=== PATIENT | female | born 1965 | race Caucasian/White ===

== ENCOUNTER 2019-12-22 12:07 | Outpatient (REF) | payer MEDICAID, SELFPAY ==
[2019-12-22 13:21] LABS: Abs Immature Grans 0.01 k/cumm (0.0-0.09); Absolute Basophil Count 0.03 k/cumm (0.0-0.2); Absolute Eosinophil Count 0.11 k/cumm (0.0-0.7); Absolute Lymphocyte Count 2.57 k/cumm (1.2-3.4); Absolute Monocyte Count 0.46 k/cumm (0.11-0.7); Absolute Neutrophil Count 4.69 k/cumm (1.2-6.7); Basophils % 0.4; Eosinophils % 1.4; HCT 39.7 % (36.0-46.0); HGB 13.4 g/dL (12.0-15.5); Immature Grans % 0.1 %; Lymphocytes % 32.7; Mean Corp. HGB Concentration 33.8 g/dL (32.0-36.0); Mean Corpuscular Hemoglobin 31.5 pg (27.0-33.0); Mean Corpuscular Volume 93.4 fL (80-95); Mean Platelet Volume 10.9 fL (8.0-11.0); Monocytes % 5.8; Neutrophils % 59.6; Platelet Count 272 x1000/uL (130-400); RBC 4.25 m/cumm (4.00-5.20); RBC Distribution Width 12.1 % (11.7-14.6); White Blood Cell Count 7.87 k/cumm (4.4-10.8)
[2019-12-22 13:31] LABS: Anion Gap 9.6 mmol/L (3-11); BUN 20 mg/dL (7-18); CO2 27.4 mmol/L (21.0-32.0); CREATININE 0.78 mg/dL (0.55-1.02); Calcium 8.9 mg/dL (8.5-10.1); Chloride 104 mmol/L (98-107); Glucose 90 mg/dL (74-106); Potassium 4.3 mmol/L (3.5-5.1); Sodium 141 mmol/L (136-145)
[2019-12-22 13:45] LABS: Calculated LDL 167 mg/dL (<100); Cholesterol 240 mg/dL (<200); HDL Cholesterol 49 mg/dL (40-60); Triglyceride 123 mg/dL (<150)
== END 2019-12-22 12:27 ==
LOC: NCHCN 12:07
PROVIDERS: PCP Nurse Practitioner Family; Visit Provider Nurse Practitioner Family
DX: Z13.0 Encounter for screening for diseases of the blood and blood-forming organs and certain disorders involving the immune mechanism (principal); Z13.228 Encounter for screening for other metabolic disorders; Z13.220 Encounter for screening for lipoid disorders
CPT/HCPCS: 80048; 80061; 85025

== ENCOUNTER 2019-12-29 11:42 | Outpatient (REF) | payer MEDICAID, SELFPAY ==
--- NOTE | 2019-12-29 11:00 | PAPFT_PTH ---
PATIENT: Geetha Figueroa LOC: [facility] U#:[id number] AGE/SX: 54/F ROOM: RE12/29/[address]: JIM Cardoso : 1965 BED: DIS: 12/29/2019 SPEC #: [id number] RECD: 12/29/19 12:57 STATUS: PAUL REOtto #: [id number] LILIYA: 12/29/19 11:[address]: Pippa Minaya DEPT: [facility] Cytology RECD BY: Angela Amador ENTERED: 12/29/19 12:57 SP TYPE: PAPFT OTHR DR: Dulce Funk Tissues: 1 - CX/ENDOCX FOR PAP SMEARS Procedures: PAP THIN PREP/UVM Screening HPV DNA PROBE Comments: [id number]
== END 2019-12-29 12:02 ==
LOC: LBN 11:42
PROVIDERS: PCP Nurse Practitioner Family; Visit Provider Nurse Practitioner Family
DX: Z12.4 Encounter for screening for malignant neoplasm of cervix (principal); Z11.51 Encounter for screening for human papillomavirus (HPV)
CPT/HCPCS: 88142; 87624

== ENCOUNTER 2020-02-02 01:04 | Outpatient (CLI) | payer MEDICAID, SELFPAY ==
--- NOTE | 2020-02-02 11:00 | DI.MAMMO_ITS ---
EXAM: MG MAMMO SCREENING CLINICAL HISTORY: screening TECHNIQUE: Bilateral full field digital CC and MLO mammographic images were obtained with 3D tomosyn thesis and utilizing computer aided detection (CAD). COMPARISON: Available for comparison. FINDINGS: Masses/Architectural Distortion: None seen. Microcalcifications: No suspicious pleomorphic-type are seen. Skin Thickening/Nipple Retraction: None. IMPRESSION: 1. No significant interval change with no specific features of malignancy noted. 2. Unless there is more urgent need, screening mammography is recommended, as per [place] [employer] guidelines. BI-RADS Cat 1 - Negative Breast Density - Category B - Scattered areas of fibroglandular density A negative radiographic report should not delay biopsy if a dominant or clinically suspicious mass is present. Up to ten percent of cancers are not identified on mammography. A negative report may reinforce clinical impression. Adenosis and dense breasts may obscure an underlying neoplasm. False positive reports average 6 to 10%. Patient will receive a letter notifying them of these results.
== END 2020-02-02 01:24 ==
PROVIDERS: PCP Nurse Practitioner Family; Visit Provider Nurse Practitioner Family
DX: Z12.31 Encounter for screening mammogram for malignant neoplasm of breast (principal)
CPT/HCPCS: 77063; 77067

== ENCOUNTER 2021-07-01 16:20 | Outpatient (REF) | payer MEDICAID, SELFPAY ==
[2021-07-03 11:03] LABS: COVID-19 RT-PCR UVMMC Result Negative (Negative)
== END 2021-07-01 16:21 | disposition home or self-care (01) ==
LOC: NCHCN 16:20
PROVIDERS: PCP Nurse Practitioner Family; Visit Provider Nurse Practitioner Family
DX: Z20.822 Contact with and (suspected) exposure to COVID-19 (principal)
CPT/HCPCS: U0003

== ENCOUNTER 2022-02-27 01:38 | Outpatient (CLI) | payer MEDICAID, SELFPAY ==
--- NOTE | 2022-02-27 13:30 | DI.MAMMO_ITS ---
Exam(s) MAMMO SCREENING EXAM: MAMMO SCREENING CLINICAL HISTORY: SCREENING, Z12.39; PREVENTATIVE HEALTH CARE, Z00.00. TECHNIQUE: Bilateral full field digital CC and MLO mammographic images were obtained with 3D tomosyn thesis and utilizing computer aided detection (CAD). COMPARISON: Prior mammograms were reviewed, the most recent being January 2020. FINDINGS: There has been no significant change in the appearance and distribution of the fibroglandular tissue There are no new significant radiograph findings in left breast. In the right breast there is a noncalcified well-defined 4 x 3 millimeter asymmetric density seen on the CC view 5 cm in from the nipple, lateral of center. Not previously present. Ultrasound recommen ded. There is no significant architectural distortion nor skin thickening-retraction. IMPRESSION: 1. No radiographic evidence of malignancy in left breast. 2. There is a 4 x 3 millimeter new asymmetric density in the right breast as described above. Spot c ompression view and ultrasound recommended. BI-RADS Category 0 - Assessment Incomplete: Need additional imaging evaluation Breast Density - Category B - Scattered areas of fibroglandular density Breast density Category C or D implies that the patient has dense breast tissue. Dense breast tissue can make it harder to find cancer on a mammogram. Dense breast tissue is also associated with an incr eased risk of breast cancer. This information about the result of the mammogram report was provided to the patient to raise their awareness. Use this report when you speak with the patient about their risks for breast cancer, which includes their family history. At that time, you may recommend additional screening tests (Ultrasoun d or MRI) as these tests may add significant information. A negative radiographic report should not delay biopsy if a dominant or clinically suspicious mass is present. Up to ten percent of cancers are not identified on mammography. A negative report may reinforce clinical impression. Adenosis and dense breasts may obscure an underlying neoplasm. False positive reports average 6 to 10%. Patient will receive a letter notifying them of these results.
== END 2022-02-27 01:58 ==
PROVIDERS: PCP Nurse Practitioner Family; Visit Provider Nurse Practitioner Family
DX: Z12.31 Encounter for screening mammogram for malignant neoplasm of breast (principal); R92.8 Other abnormal and inconclusive findings on diagnostic imaging of breast
CPT/HCPCS: 77063; 77067

== ENCOUNTER 2022-03-08 01:38 | Outpatient (CLI) | payer MEDICAID, SELFPAY ==
--- NOTE | 2022-03-08 | DI.MAMMO_ITS ---
Exam(s) MAMMO SCREEN CALL BACK UNI EXAM: MAMMO SCREEN CALL BACK UNI CLINICAL HISTORY: F/U PILI, RT ASYMMETRIC DENSITY TECHNIQUE: Cc and MLO spot compression views and tomographic imaging were performed. COMPARISON: 27 February 2022 and exams back to 2011 FINDINGS: Tiny circumscribed nodule inferolateral right breast much less prominent on spot views. No suspicio us masses or suspicious microcalcifications are seen. . IMPRESSION: BI-RADS Category 2 - Benign Findings Yearly screening mammography is recommended. Breast Density - Category B, scattered fibroglandular densities.
== END 2022-03-08 01:58 ==
PROVIDERS: PCP Nurse Practitioner Family; Visit Provider Nurse Practitioner Family
DX: Z12.31 Encounter for screening mammogram for malignant neoplasm of breast (principal); R92.8 Other abnormal and inconclusive findings on diagnostic imaging of breast; N60.81 Other benign mammary dysplasias of right breast
CPT/HCPCS: 77063; 77067

== ENCOUNTER 2022-04-13 20:22 | Outpatient (REF) | payer MEDICAID, SELFPAY ==
[2022-04-13 18:52] LABS: ALT 30 U/L (14-59); AST 22 U/L (15-37); Alkaline Phosphatase 97 U/L (46-116); Anion Gap 5.2 mmol/L (3-11); BUN 15 mg/dL (7-18); Bilirubin, Total 0.3 mg/dL (0.2-1.0); C-Reactive Protein 0.35 mg/dL (0.0-0.3); CO2 28.8 mmol/L (21.0-32.0); CREATININE 0.7 mg/dL (0.55-1.02); Calcium 8.8 mg/dL (8.5-10.1); Chloride 105 mmol/L (98-107); Glucose 78 mg/dL (74-106); Sodium 139 mmol/L (136-145); TSH (W/Ref FT4) 1.54 uIU/mL (0.36-3.74); Total Protein 7.1 g/dL (6.4-8.2)
== END 2022-04-13 20:23 | disposition home or self-care (01) ==
LOC: NCHCN 20:22
PROVIDERS: PCP Nurse Practitioner Family; Visit Provider Nurse Practitioner Family
DX: M25.59 Pain in other specified joint (principal); E66.9 Obesity, unspecified; Z68.35 Body mass index [BMI] 35.0-35.9, adult; R05.3 Chronic cough; Z13.29 Encounter for screening for other suspected endocrine disorder
CPT/HCPCS: 80053; 84443; 86140

== ENCOUNTER 2022-05-01 10:34 | Outpatient (REF) | payer MEDICAID, SELFPAY ==
[2022-05-01 17:22] LABS: Hemoglobin A1C 5.5 % (<5.7)
[2022-05-01 17:42] LABS: ALT 25 U/L (14-59); AST 15 U/L (15-37); Albumin 3.7 g/dL (3.4-5.0); Alkaline Phosphatase 119 U/L (46-116); Anion Gap 9.9 mmol/L (3-11); BUN 19 mg/dL (7-18); Bilirubin, Total 0.4 mg/dL (0.2-1.0); CO2 26.1 mmol/L (21.0-32.0); CREATININE 0.8 mg/dL (0.55-1.02); Calcium 8.5 mg/dL (8.5-10.1); Chloride 107 mmol/L (98-107); Glucose 91 mg/dL (74-106); Potassium 4.2 mmol/L (3.5-5.1); Sodium 143 mmol/L (136-145); TSH (W/Ref FT4) 1.51 uIU/mL (0.36-3.74); Total Protein 6.7 g/dL (6.4-8.2)
[2022-05-02 18:27] LABS: Rheumatoid Factor <8.6 IU/mL (<12.0)
== END 2022-05-01 10:35 | disposition home or self-care (01) ==
LOC: NCHCN 10:34
PROVIDERS: PCP Nurse Practitioner Family; Visit Provider Nurse Practitioner Family
DX: E66.9 Obesity, unspecified (principal); R05.3 Chronic cough
CPT/HCPCS: 80053; 83036; 84443; 86140; 86431

== ENCOUNTER 2022-07-06 01:56 | Outpatient (CLI) | payer MEDICAID, SELFPAY ==
[2022-07-06 12:44] LABS: Abs Immature Grans 0.02 10^3/uL (0.0-0.06); Absolute Basophil Count 0.04 10^3/uL (0.0-0.2); Absolute Eosinophil Count 0.11 10^3/uL (0.0-0.7); Absolute Monocyte Count 0.37 10^3/uL (0.1-0.8); Absolute Neutrophil Count 4.01 10^3/uL (1.2-6.7); Basophils % 0.6; ESR 19 mm/hr (0-30); Eosinophils % 1.8; HCT 40.2 % (36.0-46.0); HGB 13.5 g/dL (11.2-15.7); Immature Grans % 0.3; Lymphocytes % 27.2; MCH 30.5 pg (27.0-33.0); MCHC 33.6 % (32.0-36.0); MCV 91 fL (80-95); MPV 10.3 fL (8.0-11.0); Monocytes % 5.9; Neutrophils % 64.2; Platelet Count 267 10^3/uL (130-400); RBC 4.43 10^6/uL (3.93-5.22); RDW-SD 40.2 fL; WBC 6.25 10^3/uL (4.4-10.8)
[2022-07-06 13:08] LABS: ALT 25 U/L (14-59); AST 20 U/L (15-37); Albumin 3.9 g/dL (3.4-5.0); Alkaline Phosphatase 87 U/L (46-116); Anion Gap 6.3 mmol/L (3-11); BUN 18 mg/dL (7-18); Bilirubin, Total 0.4 mg/dL (0.2-1.0); C-Reactive Protein 0.64 mg/dL (0.0-0.3); CO2 28.7 mmol/L (21.0-32.0); CREATININE 0.9 mg/dL (0.55-1.02); Calcium 9.3 mg/dL (8.5-10.1); Chloride 106 mmol/L (98-107); Glucose 106 mg/dL (74-106); Potassium 4.9 mmol/L (3.5-5.1); Sodium 141 mmol/L (136-145); Total Protein 7.5 g/dL (6.4-8.2)
[2022-07-07 09:04] LABS: Cyclic Citrullinated Peptide <2.5 U/mL (<5.0)
== END 2022-07-06 01:57 | disposition home or self-care (01) ==
LOC: LOS 01:56
PROVIDERS: PCP Nurse Practitioner Family
DX: M17.0 Bilateral primary osteoarthritis of knee (principal); R79.82 Elevated C-reactive protein (CRP); G56.03 Carpal tunnel syndrome, bilateral upper limbs; M77.01 Medial epicondylitis, right elbow; M77.02 Medial epicondylitis, left elbow; M54.32 Sciatica, left side; M20.11 Hallux valgus (acquired), right foot; M20.12 Hallux valgus (acquired), left foot
CPT/HCPCS: 36415; 80053; 85652; 86200; 85025; 86140

== ENCOUNTER 2023-03-29 08:59 | Day surgery (SDC) | payer MEDICAID, SELFPAY ==
--- NOTE | 2023-03-28 21:39 | W.PM.DSUDISC ---
Date of service: 03/29/23 Time of Service: 11:17 Discharge Plan Disposition Patient Disposition: Home Condition: Good Discharge Details Reason For Visit: Screening colonoscopy Attending Provider: Armen Thornton Primary Care Provider: Dulce Funk Home Meds and New Rx's Prescriptions: Continued diphenhydramine HCl [ZzzQuil] 25 mg Capsule 25 mg PO HS Discontinued polyethylene glycol 3350 17 gram/dose powder 238 g PO ONCE Qty: 238 0RF Rx Instructions: take per colonoscopy instructions bisacodyl [Dulcolax (bisacodyl)] 5 mg tablet,delayed release (DR/EC) 5 mg PO ONCE Qty: 4 0RF Rx Instructions: take per colonoscopy instructions Discharge Instructions Instructions: Diverticulosis (GEN), Diverticulosis Diet (GEN), Colorectal Polyps (GEN) Additional Instructions: Geetha, we were able to complete your colonoscopy today without any difficulty. In fact, the quality of your preparation was excellent. You had some very rare occasional diverticula. Have attached some information here regarding colonic diverticulosis and its general management. I also found 1 single polyp in your rectum. I removed this completely. I will be in touch when I have the results of the pathology report. 1. If tolerated, consume a soft, low fiber diet for 1-2 days. 2. Do not drive, drink alcohol, operate machinery, make critical decisions, or do activities that require coordination or balance for 24 hours. 3. Because air was put into your colon during the procedure, expelling air from your rectum (passing gas or farting) is normal. 4. You may not have a bowel movement for 1-3 days because of the colonoscopy prep. This is normal. 5. Go directly to the emergency room if you notice any of the following: Develop chills (warm to touch), or if you have a thermometer and your temperature is above 101 Difficulty breathing or difficultly swallowing Persistent vomiting Severe abdominal pain, other than gas cramps Severe chest pain Black, tarry stools Any bleeding ? exceeding one tablespoon 6. Call your physician if the site where your intravenous was started becomes red, swollen, painful, and warm to touch. 7. Your physician has reviewed your pre-procedure medications. Please continue to take those medications as previously ordered. You will be given specific information/education regarding any changes to your medications before leaving. Stand Alone Forms: Anesthesia Discharge Inst., Roxy Melo (DSU) Activity:: Activity as Tolerated Diet:: As Tolerated Discharge Orders Discharge Orders: Discharge Order (Routine); Ordered 03/28/23 Ordered By: Armen Thornton DS: Diagnosis Discharge Diagnosis (1) Encounter for screening colonoscopy: Status: Acute Asessment and Plan: Follow-up on polypectomy results
--- NOTE | 2023-03-28 21:41 | COLE_ITS ---
Date of service: 03/29/23 Time of Service: 11:18 Colonoscopy Report Date of procedure: 03/29/23 Pre-op diagnosis general: Screening colonoscopy Post-op diagnosis procedure note: other (Diverticulosis, rectal polyp) Procedure: Colonoscopy with polypectomy Surgeon: Armen Thornton Anesthesia Type: General:No Airway Estimated blood loss (mL): 10 Pathology: other (Rectal polyp) Complications: None Disposition: same day Indications: Geetha is a 58-year-old woman here for screening colonoscopy Prep: Miralax/Dulcolax Procedure Start Time: 10:36 Procedure End Time: 10:55 Retraction Time: 12 Findings: Rare diverticulosis, rectal polyp Procedure Description: After the induction of monitored anesthetic care, and with the patient in left lateral decubitus position, I began by performing an external anorectal exam.? Perineum and skin were normal, as was the anal verge.? There was no evidence of external hemorrhoids.? Next, I performed a digital rectal exam.? I did not appreciate any abnormal findings.? Next, I advanced a colonoscope into the rectal vault.? I performed retroflexion.? This was normal.? Using insufflation, I then advanced the colonoscope beyond the rectal folds and into the sigmoid colon before advancing towards the cecum.? The quality of the prep was excellent.? There were some occasional widemouth colonic diverticula. The scope was noted to be in the cecum by identification of the ileocecal valve and candace endiceal orifice.? I then began withdrawing the colonoscope using repeated irrigation as necessary for full evaluation of the colonic mucosa. ?Once the scope was withdrawn to the level of the rectum, great care was taken to examine portions of the rectal folds. Within the rectum, I identified a 0.5 cm polyp. ?It appeared mostly sessile, but slightly pedunculated in character. ?I was able to remove this with a forcep polypectomy.. ?I examined the site, and there was minimal bleeding I stopped this with electrocautery. Once this was completed, I continued to withdraw the scope and examine the remainder of the colonic mucosa. Finally, the scope was withdrawn and the patient was brought to the same-day surgery recovery unit as the anesthetic wore off. ?The findings and instructions were shared with the patient prior to discharge.
[2023-03-29 09:15] VITALS: BP 132/94; PULSE 62; RESP 18; TEMP 36.6; O2SAT 98
[2023-03-29] MEDS: Lactated Ringers 1,000 ML 80 ML IV (09:47)
--- NOTE | 2023-03-29 10:29 | W.ANESPRE ---
General Info Date of Service Date Performed: 03/29/23 Height: 5 ft 3 in Weight: 93.4 kg Body Mass Index (BMI): 36.4 Surgical Procedure: Operation Date: 03/29/23 10:50 Proposed Procedure Side Surgeon p Colonoscopy Armen Thornton MD Meds Allergies and Home Medications Allergies Allergy/AdvReac Type Severity Reaction Status Date / Time No Known Drug Allergies Allergy Verified 03/27/23 15:17 Home Medication Medication Instructions Recorded diphenhydramine HCl 25 mg capsule 25 mg PO HS 03/27/23 (ZzzQuil) Current Visit Medications: Current Medications Generic Name Dose Route Start Last Admin Trade Name Freq PRN Reason Stop Dose Admin Hyoscyamine Sulfate 0.125 mg 03/28/23 21:42 Hyoscyamine 0.125 Mg Sl/Oral/Chew SL DIRECTED PRN Ringer's Solution 1,000 mls @ 80 mls/hr 03/29/23 06:00 03/29/23 09:47 IV 04/27/23 23:59 80 mls/hr INFUSION RANDY Administration IV Miscellaneous Supplies 1 each 03/29/23 06:00 Iv Access IV 04/27/23 23:59 DIRECTED RANDY Ondansetron HCl 4 mg 03/28/23 21:42 Ondansetron 4 Mg/2 Ml Vial IVP Q4H PRN PRN Nausea / Vomiting Sodium Chloride 0 ml 03/29/23 06:00 Normal Saline Flush 10 Ml Syr IV 04/27/23 23:59 PRN PRN Sodium Chloride 0 ml 03/29/23 06:00 Normal Saline 10 Ml Vial IJ 04/27/23 23:59 DIRECTED PRN Sterile Water 0 ml 03/29/23 06:00 Water,Injection,Sterile 10 Ml Vial IJ 04/27/23 23:59 DIRECTED PRN PFSH Active Problems Active Problems: Problem Status Onset Code Encounter for screening colonoscopy Z12.11 Medical History Medical History Shingles Tobacco Smoking/Tobacco Use Status: Never Alcohol Alcohol Intake: current Alcohol intake frequency: a few times a week Substance Use Substance use: Occasionally Substance use type: marijuana Vital Signs and Lab Results Vital Signs Most Recent Vital Signs in EMR: Most Recent Vital Signs Temp Pulse Resp BP Pulse Ox 36.6 C 62 18 132/94 H 98 03/29/23 09:15 03/29/23 09:15 03/29/23 09:15 03/29/23 09:15 03/29/23 09:15 Lab Results Blood Type / Crossmatch: No Data to Display Complete Blood Count: No Data to Display Complete Metabolic Panel: No Data to Display Liver Function Panel: No Data to Display Coagulation Panel: No Data to Display Cardiac Panel: No Data to Display Arterial Blood Gas: No Data to Display Venous Blood Gas: No Data to Display Pancreas Panel: No Data to Display Thyroid Panel: No Data to Display Infectious Disease: No Data to Display Blood Cultures: No Data to Display Toxicology Panel: No Data to Display Anesthesia Assessment and Plan Anesthesia History Personal History: No History of General Anesthesia Family History: No Family History of Anesthesia Complications Exercise Tolerance Exercise Tolerance: Metabolic Equivalents>4 Pertinent Negatives Pertinent Negatives: No Symptoms of GERD Cardiac & Pulmonary Exam Cardiac Exam: Normal S1/S2 Heart Sounds Pulmonary Exam: Clear Bilateral Breath Sounds Implantable Cardiac Device Does patient have a Pacemaker or an ICD?: No Airway Exam Known Difficult Airway: No Mallampati Class: 2 Mouth Opening: Normal (> 3cm) Thyromental Distance: Greater than 3 cm Neck Range of Motion: Full ROM Neck Circumference: Normal Teeth Condition: Normal Dentition ASA Classification ASA Score: ASA 2 Emergency Case?: No NPO Status NPO Status: NPO Clears >2 hours, Solids >8 hours Anesthesia Plan Resuscitation Status: Full Code Anesthesia Technique: General Anesthesia Airway Planned: Natural Airway Monitors Used: Standard Monitors
[2023-03-29 10:31] VITALS: BMI 36.4
--- NOTE | 2023-03-29 10:50 | BOWEL_PTH ---
PATIENT: Geetha Figueroa LOC: [facility] U#:[id number] AGE/SX: 58/F ROOM: RE03/29/[address]: Armen Thornton MD : 1965 BED: DIS: 03/29/2023 SPEC #: [id number] RECD: 03/29/23 13:02 STATUS: PAUL RE #: [id number] LILIYA: 03/29/23 10:[address]: Armen Thornton DEPT: Surgical Specimen RECD BY: Angela Amador ENTERED: 03/29/23 13:03 SP TYPE: Bowel OTHR DR: Dulce Funk Tissues: 1 - BIOPSY BOWEL Procedures: GROSS AND MICRO LEVEL 4 Comments: [id number]
[2023-03-29 11:02] VITALS: BP 111/80; PULSE 59; RESP 17; TEMP 36.5; O2SAT 97
--- NOTE | 2023-03-29 11:11 | W.ANESPOSTOP ---
Postoperative Evaluation Date, Time and Location Date Performed: 03/29/23 Time Performed: 11:11 Patient Location: Day Surgery Unit Vital Signs Most Recent Imported Vital Signs: Most Recent Vital Signs Temp Pulse Resp BP Pulse Ox 36.5 C 59 L 17 111/80 97 03/29/23 11:02 03/29/23 11:02 03/29/23 11:02 03/29/23 11:02 03/29/23 11:02 Pain Score Most Recent Pain Score: Most Recent Pain Score Pain Level 0 03/29/23 11:02 Assessment Mental Status: Awake (Alert & Oriented to Patient Baseline) Airway and Respiratory Function: Patent airway with normal (patient baseline) respiratory exam Cardiovascular Function: Hemodynamically Stable Hydration Status: Adequately Hydrated Nausea & Vomiting: No Nausea or Vomiting Pain: Pt. Denies Any Pain Peripheral Nerve Block: Patient did not receive a nerve block
[2023-03-29 11:30] VITALS: BP 142/86; PULSE 53; RESP 18; TEMP 36.6; O2SAT 100
== END 2023-03-29 11:45 | disposition home or self-care (01) ==
PROVIDERS: PCP Nurse Practitioner Family; Visit Provider Surgery
PROC: 0DJD8ZZ Inspection of Lower Intestinal Tract, Via Natural or Artificial Opening Endoscopic (ICD-10-PCS; CPT 45378; principal; 2023-03-29 10:45)
DX: Z12.11 Encounter for screening for malignant neoplasm of colon (principal); K62.1 Rectal polyp; K57.30 Diverticulosis of large intestine without perforation or abscess without bleeding
CPT/HCPCS: 45380; 88305

== ENCOUNTER → 2023-08-06 00:54 | Outpatient (CLI) | payer MEDICAID, SELFPAY ==
--- NOTE | 2023-08-06 | DI.MAMMO_ITS ---
Exam(s) MAMMO SCREENING EXAM: MAMMO SCREENING CLINICAL HISTORY: SCREENING, Z12.31. TECHNIQUE: Bilateral full field digital CC and MLO mammographic images were obtained with 3D tomosyn thesis and utilizing computer aided detection (CAD). COMPARISON: Prior mammograms were reviewed. FINDINGS: There has been no significant change in the appearance and distribution of the fibroglandular tissue. There are no CAD designations. There are no new spiculated masses nor malignant appearing microcalcification groups. Previously described possible nodule in the right breast is less evident on the present mammogram. There is no significant architectural distortion nor skin thickening-retraction. IMPRESSION: No radiographic evidence of malignancy. BI-RADS Category 1 - Negative Breast Density - Category B - Scattered areas of fibroglandular density Breast density Category C or D implies that the patient has dense breast tissue. Dense breast tissue can make it harder to find cancer on a mammogram. Dense breast tissue is also associated with an incr eased risk of breast cancer. This information about the result of the mammogram report was provided to the patient to raise their awareness. Use this report when you speak with the patient about their risks for breast cancer, which includes their family history. At that time, you may recommend additional screening tests (Ultrasoun d or MRI) as these tests may add significant information. A negative radiographic report should not delay biopsy if a dominant or clinically suspicious mass is present. Up to ten percent of cancers are not identified on mammography. A negative report may reinforce clinical impression. Adenosis and dense breasts may obscure an underlying neoplasm. False positive reports average 6 to 10%. Patient will receive a letter notifying them of these results.
== END ==
PROVIDERS: PCP Nurse Practitioner Family; Visit Provider Nurse Practitioner Family
DX: Z12.31 Encounter for screening mammogram for malignant neoplasm of breast (principal)
CPT/HCPCS: 77063; 77067

== ENCOUNTER 2024-03-14 12:53 | Outpatient (REF) | payer MEDICAID, SELFPAY ==
[2024-03-14 18:50] LABS: Abs Immature Grans 0.02 10^3/uL (0.0-0.06); Absolute Basophil Count 0.06 10^3/uL (0.0-0.2); Absolute Eosinophil Count 0.28 10^3/uL (0.0-0.7); Absolute Lymphocyte Count 1.88 10^3/uL (1.2-3.4); Absolute Monocyte Count 0.68 10^3/uL (0.1-0.8); Absolute Neutrophil Count 4.73 10^3/uL (1.2-6.7); Basophils % 0.8; Eosinophils % 3.7; HCT 41.6 % (36.0-46.0); HGB 14.2 g/dL (11.2-15.7); Immature Grans % 0.3; Lymphocytes % 24.6; MCH 31.2 pg (27.0-33.0); MCHC 34.1 % (32.0-36.0); MCV 91 fL (80-95); MPV 10.1 fL (8.0-11.0); Monocytes % 8.9; Neutrophils % 61.7; Platelet Count 284 10^3/uL (130-400); RBC 4.55 10^6/uL (3.93-5.22); RDW 12.2 % (11.7-14.6); RDW-SD 40.8 fL; WBC 7.65 10^3/uL (4.4-10.8)
[2024-03-14 19:11] LABS: Hemoglobin A1C 5.6 % (<5.7)
[2024-03-14 19:28] LABS: Vitamin D 25 Total 29.6 ng/mL (30-100)
[2024-03-14 20:14] LABS: Calculated LDL 191 mg/dL (<100); Cholesterol 301 mg/dL (<200); Folate 19.7 ng/mL (8.6-20.0); HDL Cholesterol 56 mg/dL (40-60); TSH 1.84 uIU/Ml (0.36-3.74); Triglyceride 270 mg/dL (<150); Vitamin B12 398 pg/mL (193-986)
[2024-03-14 20:29] LABS: FREE T4 0.87 ng/dL (0.76-1.46)
== END 2024-03-14 12:54 | disposition home or self-care (01) ==
LOC: NCHCN 12:53
PROVIDERS: PCP Nurse Practitioner Family; Visit Provider Nurse Practitioner Family
DX: Z13.220 Encounter for screening for lipoid disorders (principal); Z68.33 Body mass index [BMI] 33.0-33.9, adult; R53.83 Other fatigue
CPT/HCPCS: 80061; 82306; 82607; 82746; 83036; 84439; 84443; 85025

== ENCOUNTER 2024-12-26 19:38 | Outpatient (REF) | payer MEDICAID, SELFPAY ==
[2024-12-26 15:54] LABS: ALT 77 U/L (14-59); AST 37 U/L (15-37); Albumin 4.2 g/dL (3.4-5.0); Alkaline Phosphatase 105 U/L (46-116); Anion Gap 9.6 mmol/L (3-11); BUN 17 mg/dL (7-18); Bilirubin, Total 0.48 mg/dL (0.2-1.0); CO2 25.4 mmol/L (21.0-32.0); CREATININE 0.9 mg/dL (0.55-1.02); Calcium 9.4 mg/dL (8.5-10.1); Calculated LDL 72 mg/dL (<100); Chloride 108 mmol/L (98-107); Cholesterol 152 mg/dL (<200); Glucose 100 mg/dL (74-106); HDL Cholesterol 53 mg/dL (40-60); Potassium 4.4 mmol/L (3.5-5.1); Sodium 143 mmol/L (136-145); Total Protein 7.2 g/dL (6.4-8.2); Triglyceride 136 mg/dL (<150); Vitamin D 25 Total 26.3 ng/mL (30-100)
--- OUTSIDE RECORDS SUMMARY | 2024-12-26 19:40 | XMS_ITS | Encounter Summary ---
Author Organization [facility] Address [address] [place] [address] Care Team Providers Care Online Content Coordinator Name Role Phone Maye House THREE DIMENSIONAL MAP MODELER Primary Care Provider [phone] Encounter Details Date Type Department Care Team (Late st Contact Info) Description 08/25/2013 Results Only [facility] Services - [facility] ([facility] [address] [place] [address] Pippa Minaya, [facility] [address] [place] [phone] Social History Tobacco Use Types Packs/Day Years Used Date Smoking Tobacco: Never Assessed Comments Unknown Sex and Gender Information Value Date Recorded Sex Assigned at Not on file Legal Sex Female 18:20 EST Gender Identity Female 06/23/2022 14:22 EDT Sexual Orientation Not on file documented as of this encounter Plan of Treatment Not on file documented as of this encounter Procedures Procedure Name Priority Date/Time Associated Diagnosis Comments PAP TEST- RESULT ONLY Routine 08/25/2013 0:00 EDT documented in this encounter Results * PAP TEST- RESULT ONLY (08/25/2013 0:00 EDT) Pathology Report: CYTOPATHOLOGY REPORT Reports generated via electronic interface contain original data; however they are lacking the format of the original report. Caution should be taken when reading/interpreti ng unformatted reports. Name: ? GEETHA OQUENDO ? Accession #: ? [id number] ? : ? 1965 (Age: 48) ??F ?Collect Date: ? 08/25/2013 ? Location: ? [facility] ? Receive Date: ? 08/27/2013 ? Provider: PIPPA MINAYA SOLAR CREW MEMBER Copy to: ? Final Report SPECIMEN ADEQUACY ? Satisfactory for Evaluation - transformation zone component present GENERAL CATEGORIZATION ? Epithelial Cell Abnormality INTERPRETATION ? Squamous Cell Abnormality - Atypical squamous cells, undetermined significance (ASC-US). EDUCATIONAL NOTES/RECOMMENDATI ONS ? [facility] recommends following ASCCP's 2012 Updated Consensus Guidelines for the Management of Abnormal Cervical Cancer Screening Tests and Cancer Precursors (JLGTD, 2013; 17(5):S1-S27). ??Consensus guidelines are available online at www.asccp.org. Last Menstrual Period: 05/2013 Hormonal/Contracep tive status: Depo-Provera Specimen/Source: ??Pap Test, Cervix/Endocervix, ThinPrep Imaging System with manual evaluation Document reviewed and electronically signed by: ? MIRTA OWENS MD ? Report ??Date: 09/02/2013 13:45 HPV with Pap Test ? Date Ordered: ? 09/02/2013 ? Status: ?? Signed Out ?Date Complete: ? 09/04/2013 ? By: ??System Interface ? Date Reported: ? 09/04/2013 ? Interpretation RESULT: Negative for HPV. No E6 or E7 mRNA is detected from HPV types 16,18,31,33,35, 39,45,51,52,56,58, 59,66, and 68 by comber tender mediated amplification. Comments Document reviewed and electronically signed by: ? System Interface ? Report date: 09/04/2013 By the signature above, the attending physician certifies that he/she has personally conducted a gross and/or microscopic examination of the described specimens and rendered or confirmed the above diagnosis. End of Report [facility] 08/25/2013 08/27/2013 Pippa Minaya [employer]W MEMBER PATHOLOGY ORDERABLES Final R esult [facility] [address] [place] [address] documented in this encounter Visit Diagnoses Not on filedocumented in this encounter Care Teams Online Content Coordinator Relationship Specialty Start Date End Date Maye House, [employer] MODELER [address] [place] [address] PCP - General 10/13/09 10/26/15 documented as of this encounter
--- OUTSIDE RECORDS SUMMARY | 2024-12-26 19:40 | XMS_ITS | Encounter Summary ---
Author Organization [facility] Address [address] [place] [address] Care Team Providers Care Body Trimmer Upholsterer Name Role Phone Maye House LESSON INSTRUCTOR Primary Care Provider Encounter Details Date Type Department Care Team (Late st Contact Info) Description 08/05/2012 Results Only [place] [facility] - [facility] ([facility]) [address] [place] [address] Pippa Minaya, [facility] [address] [place] [phone] Social History Tobacco Use Types Packs/Day [...] Diagnosis Comments PAP TEST- RESULT ONLY Routine 08/05/2012 0:00 EDT documented in this encounter Results * PAP TEST- RESULT ONLY (08/05/2012 0:00 EDT) Pathology Report: CYTOPATHOLOGY REPORT Reports generated via electronic interface contain original data; however they are lacking the format of the original report. Caution should be taken when reading/interpreti ng unformatted reports. Name: ? GUANAKITO OQUENDOA ? Accession #: ? [id number] : ? 1965 (Age: 47) ??F ?Collect Date: ? 08/05/2012 Location: ? [facility] ? Receive Date: ? 08/06/2012 Provider: ?PIPPA MINAYA NETWORK PRICING CONSULTANT Copy to: ? Specimen/Source: ?Pap Test, Cervix/Endocervix, ThinPrep Imaging System with manual evaluation Last Menstrual Period: ? 07/15/12 Previous Gynecologic Pathology: ? ASC-US: 2009 with -HPV LSIL: 2006 Treatment History: ? Colposcopy: benign ? SPECIMEN ADEQUACY ? Satisfactory for Evaluation - transformation zone component present GENERAL CATEGORIZATION ? Negative for Intraepithelial Lesion or Malignancy INTERPRETATION ? Reactive cellular changes associated with inflammation present (includes repair). ? Document reviewed and electronically signed by: ? MIRTA OWENS MD ? Report Date: ??08/14/2012 13:58 End of Report [facility] 08/05/2012 08/06/2012 us Pippa Minaya NETWORK PRICING CONSULTANT PATHOLOGY ORDERABLES Final R esult [facility] [address] [place] [address] documented in this encounter Visit Diagnoses Not on filedocumented in this encounter Care Teams Body Trimmer Upholsterer Relationship Specialty Start Date End Date Maye [place] [address] PCP - General 10/13/09 10/26/15 documented as of this encounter
--- OUTSIDE RECORDS SUMMARY | 2024-12-26 19:40 | XMS_ITS | Encounter Summary ---
[place] [address] Care Team Providers Care Lab Animal Technologist Name Role Phone Dulce Funk APRN Primary Care Provider [phone] Reason for Visit * Auth/Cert (Routine) Specialty Diagnoses / Procedures Referred By Damon t Referred To Contact Diagnoses macromastia Procedures PRO BREAST REDUCTION REDUCTION MAMMOPLASTY, CRUZ (WRVU 16.03) MODIFIER Tyrell Trevino MD [facility] [place] [address] [facility] Referral ID Status Reason Start Date Expiration Date Visits Re quested Visits Authorized [id number] 1 1 Encounter Details Date Type Department Care Team (Late st Contact Info) Description 09/04/2023 7:39 AM EDT Anesthesia Event [place] [id number] Massimo Yoo MD [facility] DR [place] [address] Anesthesia Record Procedure Summary Procedure Name Responsible Anesthesiologist Anesthesia Start Time Anesthesia Stop Time REDUCTION MAMMOPLASTY, CRUZ (WRVU 16.03) (Bilateral: Breast) Massimo Yoo MD 09/04/23 0739 09/04/23 1008 Events Date Time Event Comment 09/04/2023 0708 0739 AN Verify 0739 Start 0739 An Start Data 0743 An Induction 0745 An Intubation 0750 Anesthesia Ready 1005 Extubation/LMA Out 1007 an stop data 1008 Recovery or ICU Handoff Lena ent care was transferred to the destination unit staff after review of the patient's medical history, current anesthetic/surgical status and plan, according to the Provider Handoff Checklist. 1008 Stop Meds Name Total Propofol 200 mg Propofol INF 572.5 mg fentaNYL 100 mcg Midazolam 2 mg IV Lidocaine 30 mg Dexamethasone 4 mg Ondansetron 8 mg PHENYLephrine 80 mcg ceFAZolin (Ancef) 2 g vial a ttach to sodium chloride 0.9% 100 mL Mini-Bag Plus 0 g lidocaine (Xylocaine) 1% (10 mg/mL) inje ction 3 mg 0 mL ceFAZolin (Ancef) 1 g vial a ttached to sodium chloride 0.9% 50 mL Mini-Bag Plus 2 g HYDROmorphone 2 mg/mL 0.6 mg lactated ringers infusion 1,000 mL * Agents Name O2 * Blood No blood administrations on file. Lines, Drains, and Airways Type Details Placement Removal Incision 09/04/23; 0800; Bilateral, Right; breast 09/04/23 0800 by Catrachito Franco RN Incision 09/04/23; 0800; Left ; breast 09/04/23 0800 by Catrachito Franco RN Closed/Suction Drain 09/04/23; 0849; Inferior, Lateral, Right; Breast; 15 Angolan 09/04/23 0849 by Catrachito Franco RN Closed/Suction Drain 09/04/23; 0850; Inferior, Lateral, Left; Breast; 15 Angolan 09/04/23 0850 by Catrachito Franco RN (RETIRED) Peripheral IV Line - Single Lumen 09/04/23; 0649; metacarpal vein (top of hand), left; [id number] catheter system; Anatomical Landmarks; 22 gauge; emk; 09/04/23; 1100 09/04/23 0649 by Mis Hills RN 09/04/23 1100 by Kenyetta Morrison RN Supraglottic Mask Ventilation: No t Attempted (0); LMA Type: iGel; LMA Size: 4; Inserted by: EB; Removal Date: 09/04/23; Removal Time: 1005 09/04/23 0745 by Baron Worthington MINE MOTOR ENGINEER 09/04/23 1005 by Baron Worthington CRNA documented in this encounter Social History Tobacco Use Types Packs/Day Years Used Date Smoking Tobacco: Never Alcohol Use Standard Drinks/Week Comments Never 0 (1 standard drink = 0.6 oz pur e alcohol) DH IPV Inpatient Questions Answer Date Recorded Does Anyone Try to Keep You From Having Contact with Others or Doing Things Outside Your Home? no 09/04/2023 Feels Threatened by Someone no 08/26 Feels Unsafe at Home or Work/School no 09/04/2023 Physical Signs of Abuse Present no 09/04/2023 Sex and Gender Information Value Date Recorded Sex Assigned at Not on file Gender Identity Not on file Sexual Orientation Not on file documented as of this encounter OR Notes * Anesthesia Postprocedure Evaluation - Massimo Yoo MD - 09/04/2023 1:25 PM EDT Department of Anesthesiology Post-procedure Note Patient: Geetha Figueroa Procedure Summary Date: 09/04/23 Room / Location: [facility] [address] [place] [address] Anesthesia Start: 738 Anesthesia Stop: 100 Procedures: REDUCTION MAMMOPLASTY, CRUZ (WRVU 16.03) (Bilateral: Breast) MODIFIER FOSTER Diagnosis: Macromastia (macromastia) Surgeons: Tyrell Miles MD Responsible Provider: Massimo Yoo MD Anesthesia Type: general ASA Status: 2 All Anesthesia Providers: Anesthesiologist: Massimo Yoo MD MINE MOTOR ENGINEER: Baron Worthington CRNA Vitals Value Taken Time BP 153/88 09/04/23 1045 Temp 36 ??C (96.8 ??F) 09/04/23 1010 Pulse 70 09/04/23 1100 Resp 18 09/04/23 1015 SpO2 100 % 09/04/23 1100 Pain Level 6 09/04/23 1055 Patient Location: PACU/SD Level of Consciousness: Conscious but Sleepy Pain Management: Satisfactory Analgesia PONV: None Cardiovascular Status: Hemodynamically Stable Respiratory Status: Stable Respiratory Status Postoperative Fluid Status: Intravascular EUvolemia Possible Anesthetic Complications: NONE apparent at time of evaluation Final Primary Anesthesia Type: General (The anesthetic type performed was the same as planned.) Comments: * Anesthesia Preprocedure Evaluation - Massimo Yoo MD - 09/03/2023 2:58 PM EDT Pre-Anesthesia Evaluation for: Geetha Figueroa a 58 y.o. female. Procedure(s): REDUCTION MAMMOPLASTY, CRUZ (WRVU 16.03) MODIFIER FOSTER Patient Active Problem List Diagnosis Date Noted ??? Chronic low back pain 06/15/2022 ??? CRP elevated 06/15/2022 ??? GERD (gastroesophageal reflux disease) 06/15/2022 ??? Obesity (BMI 35.0-39.9 without comorbidity) 06/15/2022 ??? Pain in joint, multiple sites 06/15/2022 ??? Persistent cough 06/15/2022 ??? Actinic keratosis 07/14/2016 ??? Basal cell carcinoma 07/14/2016 ??? History of SCC (squamous cell carcinoma) of skin 07/14/2016 History reviewed. No pertinent past medical history. History reviewed. No pertinent surgical history. Social History Tobacco Use ??? Smoking status: Never ??? Smokeless tobacco: Not on file Substance Use Topics ??? Alcohol use: Never Social History Substance and Sexual Activity Drug Use Never No Known Allergies Medications: MAR and/or home medications have been reviewed. Physical Exam: Preprocedure Vitals Current as of 09/03/23 1458 No BP, pulse, respiration, SpO2, or temperature recorded. Height: 160 cm (5' 3) (04/30/23) Weight: 91.2 kg (201 lb) (04/30/23) BMI: 35.6 IBW: 52.4 kg (115 lb 7.7 oz) Airway Assessment: Mallampati: II Cardiovascular Assessment: system normal Pulmonary Assessment: pulmonary exam normal Dental Assessment: Misc Assessment: Last Filed Perioperative Cognitive Screening None Anesthesia Plan: ASA 2 general, with a(n) intravenous induction 58 yr old F pmhx GERD presenting for reduction mammoplasty NPO appropriate, denies GERD, >4 mets, ROS negative except as above. No anest records No labs Planning [facility] - Other Informed Consent: Anesthetic plan and risks discussed with patient. Use of blood products discussed with patient who consented to blood products. Plan discussed with MINE MOTOR ENGINEER. Anesthesia Screening documented in this encounter Plan of Treatment Not on file documented as of this encounter Visit Diagnoses Not on filedocumented in this encounter Administered Medications Inactive Administered Medications - up to 3 most recent administrations Medication Order MAR Action Action Date Dose Rate Site ceFAZolin (Ancef) 1 g vial attached to sodium chloride 0.9% 50 mL Mini-Bag Plus Intravenous, CONTINUOUS PRN, Starting on Sun09/04/23 at 0758, Until Sun09/04/23 at 1008, Administer over 30 Minutes, Anesthesia Intra-op New Bag 09/04/2023 7:58 AM EDT 2 g dexAMETHasone (Decadron) injection Intravenous, PRN, Starting on Sun09/04/23 at 0802, Until Sun09/04/23 at 1008, Anesthesia Intra-op, Routine Given 09/04/2023 8:02 AM EDT 4 mg fentaNYL (pf) (50 mcg/mL) multi-dose injection Intravenous, PRN, Starting on Sun09/04/23 at 0759, Until Sun09/04/23 at 1008, Anesthesia Intra-op, Routine Given 09/04/2023 7:59 AM EDT 50 mcg Given 09/04/2023 7:43 AM EDT 50 mcg HYDROmorphone (Dilaudid) (2 mg/mL) multi-dose injection solution Intravenous, PRN, Starting on Sun09/04/23 at 0942, Until Sun09/04/23 at 1008, Anesthesia Intra-op, Routine Given 09/04/2023 10:00 AM EDT 0.2 mg Given 09/04/2023 9:42 AM EDT 0.2 mg Given 09/04/2023 9:30 AM EDT 0.2 mg lactated ringers infusion 1,000 mL, at 100 mL/hr, Intravenous, CONTINUOUS, Starting on Sun09/04/23 at 0645, Until Sun09/04/23 at 1113, Day of Surgery (Day of Procedure) New Bag 09/04/2023 9:46 AM EDT New Bag 09/04/2023 7:39 AM EDT New Bag 09/04/2023 6:49 AM EDT 1,000 mLs 100 mL/hr lidocaine (pf) (Xylocaine) (20 mg/mL) 2% injection syringe Intravenous, PRN, Starting on Sun09/04/23 at 0743, Until Sun09/04/23 at 1008, Anesthesia Intra-op, Routine Given 09/04/2023 7:43 AM EDT 30 mg midazolam (pf) (Versed) (1 mg/mL) multi-dose injection Intravenous, PRN, Starting on Sun09/04/23 at 0739, Until Sun09/04/23 at 1008, Anesthesia Intra-op, Routine Given 09/04/2023 7:39 AM EDT 2 mg ondansetron (pf) (Zofran) (2 mg/mL) injection Intravenous, PRN, Starting on Sun09/04/23 at 0948, Until Sun09/04/23 at 1008, Anesthesia Intra-op, Routine Given 09/04/2023 9:48 AM EDT 8 mg PHENYLephrine in NS (PF) (NEHA-SYNEPHRINE) 0.8 mg/10 mL (80 mcg/mL) multi-dose injection Syringe Intravenous, PRN, Starting on Sun09/04/23 at 0803, Until Sun09/04/23 at 1008, Anesthesia Intra-op, Routine Given 09/04/2023 8:03 AM EDT 80 mcg propofoL (Diprivan) (10 mg/mL) infusion Intravenous, CONTINUOUS PRN, Starting on Sun09/04/23 at 0743, Until Sun09/04/23 at 1008, Anesthesia Intra-op, Routine New Bag 09/04/2023 7:43 AM EDT 50 mcg/kg/min 27.48 mL/hr propofoL (Diprivan) 10 mg/mL bolus injection (Anesthesia) Intravenous, PRN, Starting on Sun09/04/23 at 0743, Until Sun09/04/23 at 1008, Anesthesia Intra-op Given 09/04/2023 7:44 AM EDT 100 mg Given 09/04/2023 7:43 AM EDT 100 mg documented in this encounter Care Teams Lab Animal Technologist Relationship Specialty Start Date End Date Dulce Funk APRN [facility] [place] [address] PCP - General Family Medicine 04/09/23 04/30/24 documented as of this encounter
--- OUTSIDE RECORDS SUMMARY | 2024-12-26 19:40 | XMS_ITS | Encounter Summary ---
Author Organization [facility] Address [address] [place] [address] Care Team Providers Care Water Valve Repairer Name Role Phone Natalio Metcalf COAL CUTTING MACHINE OPERATOR Primary Care Provider [phone] Encounter Details Date Type Department Care Team (Late st Contact Info) Description 07/10/2005 Results Only [facility] conversion [address] [place] [address] Stevie Zamorano MD [address] [place] [id number] Social History Tobacco Use Types Packs/Day Years [...] Procedure Name Priority Date/Time Associated Diagnosis Comments SURGICAL PATHOLOGY Routine 07/10/2005 0:00 EDT documented in this encounter Results * SURGICAL PATHOLOGY (07/10/2005 0:00 EDT) Pathology Report: SURGICAL PATHOLOGY REPORT Reports generated via electronic interface contain original data; however they are lacking the format of the original report. Caution should be taken when reading/interpreti ng unformatted reports. Name: ? GEETHA OQUENDO ? Accession #: ? [id number] ? : ? 1965 (Age: 40) ??F ? Collect Date: ? 07/10/2005 ? Location: ? [facility] ? Receive Date: ? 07/11/2005 ? Provider: STEVIE ZAMORANO MD Copy to: NATALIO METCALF COAL CUTTING MACHINE OPERATOR ? Final Pathologic Diagnosis: ? Skin of forearm, left, excision: 1. ?Basal cell carcinoma, superficial and nodular type. ? - Margins negative for basal cell carcinoma (superficial basal cell carcinoma present ??approximately 1.0 mm from peripheral margin). Microscopic Description: ? Irregularly shaped islands of atypical basal cells infiltrate the dermis. The basal cells have scant cytoplasm and round dark nuclei. ??Mitotic figures and apoptotic bodies are evident. ??The nuclei at the periphery of the islands have a palisaded arrangement. ??The islands are associated with a fibromyxoid stroma and there is cleft formation between some of the islands and stroma. ??(Dr. Cox)/[facility] Document reviewed and electronically signed by: TARAS COX MD Report ??Date: 07/12/2005 14:04 By the signature above, the attending physician certifies that he/she has personally conducted a gross and/or microscopic examination of the described specimens and rendered or confirmed the above diagnosis. Specimen(s) Received: ? Suspicious skin lesion left forearm Clinical History: ? Ulcerated scaled lesion left forearm Gross Description: ? Received in formalin labelled Aman forearm skin is an unoriented skin ellipse measuring 3.0 x 0.8 x 0.3 cm. ??The cutaneous surface is composed of white-flanagan skin with a central area of pallor measuring 0.7 x 0.7 cm. The specimen is inked black, serially sectioned and submitted as follows: BLOCK BAILEY A1-A3 ?Central sections A4 ?Distal tips, reverse en face (Dr. Echavarria)/[facility] End of Report YUNG MILLER 07/10/2005 07/11/2005 15: 08 EDT us Stevie Zamorano MD PATHOLOGY ORDERABLES Final Resul t YUNG MILLER [address] [place] [address] documented in this encounter Visit Diagnoses Not on filedocumented in this encounter Care Teams Water Valve Repairer Relationship Specialty Start Date End Date Natalio Metcalf, COAL CUTTING MACHINE OPERATOR [address] [place] [address] PCP - General 10/13/09 10/26/15 documented as of this encounter
--- OUTSIDE RECORDS SUMMARY | 2024-12-26 19:40 | XMS_ITS | Continuity of Care Document ---
Author Organization [facility], [facility] Address [address] [place] [address] Assessment Encounter Date Assessment Date Assessment LastModified by Organization Details LastModified Time 10/14/2024 10/14/2024 This appointment was conducted via telephone. A total of 10 minutes was spent at this visit of which at least 50% was spent in direct patient contact. Consent was given to conduct this encounter using appropriate technology. [email or web address] Not available 10/14/2024 12:33:27 Plan of Treatment Reminders Order Date Submit Date Provider Last Modified By Organization Details Last Modified Time Details Appointments Follow Up 2024 01:00P M JILL MCKEON Not available Not available Not available Follow Up 2024 01:30P M JILL MCKEON Not available Not available Not available Lab None recorded. Referral None recorded. Procedures None recorded. Surgeries None recorded. Imaging None recorded. Medication Orders phentermi ne 37.5 mg capsule 2023 024 SHEILA [id number], [address] [place], [address], 10/14/2024 12:25:08 Patient TargetsNo targets recorded. Patient InstructionsNo instructions recorded. Reason for Referral None Reported. 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 Referral to PT. Problem Code: M54.5; Problem Code Type: ICD-10; [address], [place], [address] , [facility] 4 12:35:33 Counseli lg Completed 201711/04/2018 10/21/20 18 - Comments only - Dulce Good [place] - Receives EDIPHONE OPERATOR care at , will schedule pap. Is consider ing colonosc opy, not ready to schedule at this time. UTD with Tdap, declines flu vaccine. Problem Code: Z71.89; Problem Code Type: ICD-10; Not Available [facility] 3 05:31:10 Body mass index 30+ - obesity 559825070 Active 2017 Problem Code: Z68.33; Problem Code Type: ICD-10; [address], [place], [address] , [facility] 4 12:35:21 Cough 44219924 Completed 201901/14/2020 Problem Code: R05; Problem Code Type: ICD-10; Not Available [facility] 3 05:31:10 Joint pain 76857931 Active 202109/28/20 22 - Comments only - Dulce Good CANNERY TENDER ENGINEER - Some decrease in pain in wt bearing joints. Still pain in R shoulder , pt declines referral to PT or ortho at this time. Problem Code: M25.50; Problem Code Type: ICD-10; [address], [place], [address] , [facility] 4 12:35:26 Gastroes ophageal reflux disease without esophagi tis 041554271 Completed 202103/14/2024 09/28/20 22 - Improved - Dulce Funk APRN - Stopped omeprazo le, asymptom atic at present. Problem Code: K21.9; Problem Code Type: ICD-10; [address], [place], [address] , [facility] 4 12:34:27 Hypertro phy of breast 767750146 Completed 202103/14/2024 12/29/19 23 - Comments only - Dulce Funk APRN - Pt would like to pursue breast reductio n surgery. Reports chronic discomfo rt in upper back and neck. Referral to PT. Will refer to [facility] reconstr uctive surgery, as indicate d. Problem Code: N62; Problem Code Type: ICD-10; [address], [place], [address] , [facility] 4 12:33:46 Pain in thoracic spine 106087559 Active 202212/29/19 23 - Comments only - Dulce Funk APRN - Pt attribut es to macromas tia. See above. Problem Code: M54.9; Problem Code Type: ICD-10; [address], [place], [address] , [facility] 4 12:35:37 History of polyp of colon 944468906 Active 2022 Problem Code: Z86.010; Problem Code Type: ICD-10; last colonosc opy at age [address], [place], [address] , [facility] 4 12:35:24 Acute pharyngi tis 078833610 Completed 201806/24/2019 Problem Code: J02.9; Problem Code Type: ICD-10; Not Available [facility] 3 05:31:11 C-reacti ve protein above referenc e range 93180875093 9104 Completed 202107/25/2022 Problem Code: R79.82; Problem Code Type: ICD-10; Not Available [facility] 3 05:31:11 Acute frontal sinusiti s 74187709 Completed 201806/24/2019 Problem Code: J01.10; Problem Code Type: ICD-10; Not Available [facility] 3 05:31:11 Exposure to communic able disease Completed 202004/13/2022 Problem Code: Z20.828; Problem Code Type: ICD-10; Not Available [facility] 3 05:31:11 Endocrin e/metabo lic screenin g Completed 201510/21/2018 Problem Code: Z13.29; Problem Code Type: ICD-10; Not Available [facility] 3 05:31:12 Screenin g for malignan t neoplasm of breast Completed 202004/13/2022 Problem Code: Z12.39; Problem Code Type: ICD-10; Not Available [facility] 3 05:31:12 Plantar fascial fibromat osis 85092445 Completed 201804/13/2022 Problem Code: M72.2; Problem Code Type: ICD-10; Not Available [facility] 3 05:31:12 Acute sinusiti s 41882406 Completed 201904/13/2022 Problem Code: J01.90; Problem Code Type: ICD-10; Not Available [facility] 3 05:31:12 Chronic cough 34836862 Completed 202107/25/2022 Problem Code: R05.3; Problem Code Type: ICD-10; Not Available [facility] 3 05:31:12 Obesity 920374625 Completed 201708/22/2023 09/28/20 22 - iA Funk CANNERY TENDER ENGINEER - Wt continue s to decline with use of phenterm ine, diet changes and regular exercise . Will continue for three more months. Problem Code: E66.9; Problem Code Type: ICD-10; Not Available [facility] 3 05:31:12 Hyperlip idemia screenin g Completed 201510/21/2018 Problem Code: Z13.220; Problem Code Type: ICD-10; Not Available [facility] 3 05:31:12 Disorder of skin and/or subcutan eous tissue 72866273 Completed 201510/21/2018 Problem Code: L98.8; Problem Code Type: ICD-10; Not Available [facility] 3 05:31:12 Fatigue 22635727 Active [address], [facility] [address] , [facility] 4 12:31:49 Carpal tunnel syndrome 48991127 Active [address], [facility] [address] , [facility] 4 12:34:01 Hyperlip idemia 46452446 Active 2023 start rosuvast atin 10mg once each evening on 03/24/24. repeat labs in 3 months with [facility]. 10-year ASCVD risk score was 39% based on choleste rol complete d in February 2024. [address], [place], [address] , [facility] 4 16:47:36 Pain in right hip joint 56228722419 9102 Active [address], [facility] [address] , [facility] 4 14:55:49 Problem Notes None recorded. Procedures Surgical History Date Name Laterality Status Provider Name and Address Organization Details Recorded Time 3 Most Recent Mammogram completed MIRELLA MILES RN [facility] 03/13/2024 17:41:51 3 Date of Last Colonoscopy completed MIRELLA MILES RN [facility] 03/13/2024 17:42:40 0 Date of Last Pap Smear completed MIRELLA MILES RN [place] - [facility] 03/13/2024 17:42:17 Imaging Results None recorded. Procedure Notes None recorded. Medical Equipment None Reported. Allergies No known drug allergies Medications Name Sig Start Date Stop Date Status Note LastModified by Organization Details LastModified Time amoxicilli n 500 mg capsule TAKE ONE CAPSULE BY MOUTH EVERY 8 HOURS FOR 10 DAYS 03/13 completed Not Available Not Available Not Available bupropion HCl SR 150 mg tablet,12 hr sustained- release TAKE ONE TABLET BY MOUTH TWICE A DAY active taki ng mid day with naltre xone* Not Available Not Available Not Available naltrexone 50 mg tablet TAKE 1/2 TABLET BY MOUTH TWICE A DAY DIRECTED FOR FOOD CRAVINGS/ WT. MANAGEMEN T active *takin g mid day with buporo pion* Not Available Not Available Not Available phentermin e 15 mg capsule Take 1 capsule by mouth every morning 06/18 completed Not Available Not Available Not Available omeprazole 40 mg capsule,de layed release Take 1 capsule by mouth once a day 09/28 completed Not Available Not Available Not Available phentermin e 30 mg capsule TAKE 1 CAPSULE BY MOUTH DAILY 03/16 completed Not Available Not Available Not Available bupropion HCl SR 100 mg tablet,12 hr sustained- release Take 1 tablet twice a day by oral route as directed, for food cravings/ weight managemen t. 09/19 completed Not Available Not Available Not Available cephalexin 500 mg capsule TAKE ONE CAPSULE BY MOUTH FOUR TIMES A DAY 11/01 completed Not Available Not Available Not Available diphenhydr amine 25 mg capsule Take 1 capsule every day by oral route at bedtime. active for sleep Not Available Not Available Not Available hydroxyzin e HCl 25 mg tablet take 1 to 2 tablets by mouth at bedtime for sleep/anx iety. 2024 active Not Available Not Available Not Avai lable bisacodyl 5 mg tablet,del ayed release TAKE IT DIRECTED FOR COLONOSCO PY PREP 11/01 completed Not Available Not Available Not Available polyethyle ne glycol 3350 17 gram/dose oral powder TAKE 238GM BOTTLE ONCE FOR COLONOSCO PY PREP, TAKE PER COLONOSCO PY INSTRUCTI ONS 11/01 completed Not Available Not Available Not Available phentermin e 37.5 mg capsule take 1 capsule per day each morning for weight managemen t active start date . 12 week trial max- ALD Not Available Not Available Not Available amoxicilli n 875 mg-potassi um clavulanat e 125 mg tablet Take 1 tablet by mouth twice a day 04/13 completed Not Available Not Available Not Available oxycodone 5 mg tablet TAKE ONE TABLET BY MOUTH EVERY 4 HOURS NEEDED FOR PAIN 11/01 completed Not Available Not Available Not Available rosuvastat in 10 mg tablet TAKE ONE TABLET BY MOUTH EVERY EVENING FOR HIGH CHOLESTER OL 2024 active Not Available Not Available Not Avai lable ProAir HFA 90 mcg/actuat ion aerosol inhaler Inhale 1 puff as directed every four to six hours as needed for shortness of breath, wheezing 11/01 completed Not Available Not Available Not Available Probiotic 2 gummies daily active Not Available Not Available No t Available Vitals None Recorded Social History Question Answer Notes LastModified by Organizat ion Details LastModified Time Tobacco Smoking Status Never Smoker Aure Dubois [place] [facility] [place] - [facility] 03/01/2024 14:01:24 What Was The Date Of Your Most Recent Tobacco Screening? 12/26/2024 Information not available 12/26/2024 Has Tobacco Cessation Counseling Been Provided? Yes juan j Information not available 03/01/2024 On What Date Was Tobacco Cessation Counseling Provided? 12/26/2024 Information not available 12/26/2024 Do You Or Have You Ever Used Any Other Forms Of Tobacco Or Nicotine? No juan j Information not available 03/01/2024 Sex: Female Functional Status None recorded. Mental Status None recorded. Family History Relationship Description Onset Age of this Age Resolved Age Notes LastModified by Organization Details LastModified Time Father Diabetes mellitus 50 66 [email or web address] Not available 2023 12:41:52 Mother Type 2 diabetes mellitus Not available 2023 12:42:41 Notes:*Problem: Father age 66, kidney failure,cardiac arrest, dm Medical History No medical history recorded. Gynecological History Statement/Question Response Abnormal Pap N Date of Last Pap Smear 12/29/2019 Date of Last Colonoscopy 03/29/2023 Most Recent Mammogram 08/06/2023 Obstetrics History GPAL:G 0 P 0 0 0 0 Immunizations Vaccine Type Date Status Note Provider Bernabe lang and Address Organization Details Recorded Time Tdap 03/06/2016 completed Not Available [facility] 10/05/2023 06:11:59 COVID-19, mRNA, LNP-S, PF, 100 mcg/0.5mL dose or 50 mcg/0.25mL dose 12/02/2021 completed Not Available [facility] 3 06:11:59 COVID-19 vaccine, vector-nr, rS-Ad26, PF, 0.5 mL 03/06/2021 completed Not Available [facility] 3 06:11:59 Past Encounters Encounter ID Performer Location Encounter Start Date Encounter Closed Date Diagnosis/Indication Diagnosis SNOMED-CT Code Diagnosis ICD10 Code Diagnosis Note [id number] JIM PRICE [facility] [address] [place] [address] 09/19/2024 13:38:39 09/19/2024 14:58:15 Hyperlipidemia 28950996 E78.5 has been on rosuvastat in 10mg daily since february 2024. , will check lipids again in 3 months. last lipids LDL 191 and total cholestero l 301. risk score was 39%. Body mass index 30+ - obesity 894625423 Z68.33 doing well on bupropion 100mg BID and naltrexone 25mg BID but weight loss stalled. increase morning dose of bupropion to 200mg and keep night dose at 100mg. continue naltrexone at 25mg BID. she will use up what she has at home and call when needing refill of the medication s.discusse d if not helpful can think about adding phentermin e for a 12 week max trial.no history of cardiac issues. all labs normal in February except cholestero l, will recheck cholestero l and labs in another 3 months Pain in ri ght hip joint 9650215785 78522 M25.551 I think this is your hip flexors on right side, anterior groin. stretches, PT will be most helpful. if you get no relief with anterior hip flexor exercises/ stretches online, call me for PT referral. [id number] JIM PRICE [facility] [address] [place] [address] 10/14/2024 11:02:04 10/14/2024 12:52:18 Body mass index 30+ - obesity 234568567 Z68.33 continue bupropion 150mg XL twice daily. stop naltrexone . not helpful really for weight loss or binge/food cravings.w ill add phentermin e 12 week course as this has worked in past without any negative side effects. discussed will need EKG at next visit in November.wi ll check in by phone in one month for BP and heart rate readings and to see how she's doing with exercise, diet and weight management .12 week trial max as she already had a 6 month course of phentermin e 30mg with previous PCP that ended February 2024. Advised this is not a ocean transportation intermediary or recurrent weight management solution that is heart healthy. all labs normal in February except cholestero l, will recheck cholestero l at her follow up in 2 months since she has been on rosuvastat in Health Concerns Section Related Observation LastModified by Organization Detai ls LastModified Time None Recorded Concern Status LastModified by Organization Details LastModified Time None Recorded Payers Encounter Date Sequence Insurance Name Policy Number Policy Rivera Covered Member ID Rivera Member ID Guarantor Name 10/14/2024 1 [facility] (MEDICAID) Geetha Figueroa [id number] Geetha Figueroa Notes Date Note Type Note Provider Name and Address Organization Details Recorded Time 10/14/2024 text/html Geetha is a plea adeline 59 year old female on a PHONE visit follow up today for a follow up on weight management.Current BMI is 35.8. Hasn't lost any weight on the bupropion and naltrexone combo, even after increase to 150mg bupropion SR twice daily with naltexone 25mg twice daily. has been bikingWas started on bupropion SR 100mg twice daily and Naltrexone 25mg twice daily back on 03/23/24. Brandon initially did well on this losing 11 lbs by 05/09/24 phone visit check in, but then weight loss has stalled. Is very busy with work so doesn't have much time to exercise. has been averaging biking 10 minutes each morning. Feels good but is not losing weight. snacks all day. craves all day. lost 44 lbs in past on phentermine 30mg. wants to try this again.Discussed increasing exercise is really rodriguez. she will do this as well.Tolerated phentermine well through past pcp for 6 months. last dosing was February 2024. discussed with her a 12 week trial is all i'm willing to do for heart health. Her labs were all within range so hard to get any weight management options covered for any other diagnosis other than obesity. no history of diabetes, thyroid disease or cardiac events. on a statin for hyperlipidemia currently. JIM PRICE [address], [place], [address], [facility], [facility]. 10/14/2024 12:33:49 OBGyn Episode No OBEpisode recorded.
--- OUTSIDE RECORDS SUMMARY | 2024-12-26 19:40 | XMS_ITS | Encounter Summary ---
Author Organization [facility] Address [facility] [place] [address] Care Team Providers Care Sewage Treatment Plant Operator Name Role Phone Dulce Funk APRN Primary Care Provider [phone] Encounter Details Date Type Department Care Team (Latest Contact Info) Description 09/11/2023 Travel Social History Tobacco Use Types Packs/Day Years [...] on filedocumented in this encounter Care Teams Sewage Treatment Plant Operator Relationship Specialty Start Date End Date [place] [address] PCP - General Family Medicine 04/09/23 04/30/24 documented as of this encounter
--- OUTSIDE RECORDS SUMMARY | 2024-12-26 19:40 | XMS_ITS | Encounter Summary ---
Author Organization [facility] Address [address] [place] [address] Care Team Providers Care Apartment Maintenance Name Role Phone Maye House TAKE UP SUPERVISOR Unavailable [phone] Maye House TAKE UP SUPERVISOR Primary Care Provider [phone] Reason for Referral * Radiology Services (Routine/Next Available) - Authorization Not Required Specialty Diagnoses / Procedures Referred By Contac t Referred To Contact Diagnoses Elevated C-reactive protein (CRP) Bilateral carpal tunnel syndrome Golfers elbow of right upper extremity Golfer's elbow, left Sciatica of left side Valgus deformity of both great toes Primary osteoarthritis of both knees Procedures XR LUMBAR SPINE 2-3 VIEWS Nish Silvestre MBBS Phone: tel: fax: [facility] Referral ID Status Reason Start Date Expiration Date Visits Requested Visits Authorized [id number] Authorization Not Required 06/29/2022 1 1 * Radiology Services (Routine/Next Available) - Authorization Not Required Specialty Diagnoses / Procedures Referred By Contac t Referred To Contact Diagnoses Elevated C-reactive protein (CRP) Bilateral carpal tunnel syndrome Golfers elbow of right upper extremity Golfer's elbow, left Sciatica of left side Valgus deformity of both great toes Primary osteoarthritis of both knees Procedures XR FOOT RIGHT 1-2 VIEWS Nish Silvestre MBBS Phone: tel: fax: [facility] Referral ID Status Reason Start Date Expiration Date Visits Requested Visits Authorized [id number] Authorization Not Required 06/29/2022 1 1 * Radiology Services (Routine/Next Available) - Authorization Not Required Specialty Diagnoses / Procedures Referred By Contac t Referred To Contact Diagnoses Elevated C-reactive protein (CRP) Bilateral carpal tunnel syndrome Golfers elbow of right upper extremity Golfer's elbow, left Sciatica of left side Valgus deformity of both great toes Primary osteoarthritis of both knees Procedures XR FOOT LEFT 1-2 VIEWS Nish Silvestre MBBS Phone: tel: fax: [facility] Referral ID Status Reason Start Date Expiration Date Visits Requested Visits Authorized [id number] Authorization Not Required 06/29/2022 1 1 * Radiology Services (Routine/Next Available) - Authorization Not Required Specialty Diagnoses / Procedures Referred By Contac t Referred To Contact Diagnoses Elevated C-reactive protein (CRP) Bilateral carpal tunnel syndrome Golfers elbow of right upper extremity Golfer's elbow, left Sciatica of left side Valgus deformity of both great toes Primary osteoarthritis of both knees Procedures XR KNEE LEFT 3 VIEWS Nish Silvestre MBBS Phone: tel: fax: [facility] Referral ID Status Reason Start Date Expiration Date Visits Requested Visits Authorized [id number] Authorization Not Required 06/29/2022 1 1 * Radiology Services (Routine/Next Available) - Authorization Not Required Specialty Diagnoses / Procedures Referred By Contac t Referred To Contact Diagnoses Elevated C-reactive protein (CRP) Bilateral carpal tunnel syndrome Golfers elbow of right upper extremity Golfer's elbow, left Sciatica of left side Valgus deformity of both great toes Primary osteoarthritis of both knees Procedures XR KNEE RIGHT 3 VIEWS Nish Silvestre MBBS Phone: tel: fax: [facility] Referral ID Status Reason Start Date Expiration Date Visits Requested Visits Authorized [id number] Authorization Not Required 06/29/2022 1 1 Reason for Visit * Reason Comments New Patient Visit for joints pain, * Referral (Routine) - Authorization Not Required Specialty Diagnoses / Procedures Referred By Contac t Referred To Contact Rheumatology Diagnoses Multiple joint pain Elevated C-reactive protein (CRP) Dulce Funk, JIM [address] [place] [address] Phone: tel: fax: [facility] Rheumatology [address] [place] [id number] Phone: tel: fax: Referral ID Status Reason Start Date Expiration Date Visits Requested Visits Authorized [id number] Authorization Not Required 1 1 Encounter Details Date Type Department Care Team (Late st Contact Info) Description 06/29/2022 14:45 EDT Office Visit [facility] Rheumatology [address] [phone] Nish Silvestre MBBS [address] [facility] [place] [phone] Primary osteoarthritis of both knees (Primary Dx); Elevated C-reactive protein (CRP); Bilateral carpal tunnel syndrome; Golfers elbow of right upper extremity; Golfer's elbow, left; Sciatica of left side; Valgus deformity of both great toes Social History Tobacco Use Types Packs/Day Years Used Date Smoking Tobacco: Never Interpersonal Safety Answer Date Record ed Physically Hurt Never 06/27/2020 Verbally Threaten Not on file 06/27/2020 Comments Unknown Sex and Gender Information Value Date Recorded Sex Assigned at Not on file Legal Sex Female 18:20 EST Gender Identity Female 06/23/2022 14:22 EDT Sexual Orientation Not on file documented as of this encounter Last Filed Vital Signs Vital Sign Reading Time Taken Comments Blood Pressure 122/87 06/29/2022 1431 EDT Pulse 72 06/29/2022 1431 EDT Temperature - - Respiratory Rate - - Oxygen Saturation - - Inhaled Oxygen Concentration - - Weight 106.1 kg (234 lb) 06/29/2022 1431 EDT Height 157.5 cm (5' 2.01) 06/29/2022 1431 EDT Body Mass Index 42.79 06/29/2022 1431 EDT documented in this encounter Functional Status * Because of a physical, mental, or emotional condition, does this person have difficulty doing errands alone such as visiting a doctor's office or shopping? Answer Date of Assessment Author No 06/29/2022 14:35 EDT documented as of this encounter Mental Status * Because of a physical, mental, or emotional condition, does this person have serious difficulty concentrating, remembering, or making decisions? Answer Entry Date Author No 06/29/2022 14:35 EDT documented in this encounter Patient Instructions * Patient Instructions* Nish Silvestre MBBS - 06/29/2022 14:45 EDT Images from the original note were not included. - Labs and XRs today - Referral to physical therapy, weight loss, and recommend regular non-weight bearing exercise suchas swimming or cycling. - Acetaminophen 1g four times daily as needed and diclofenac gel four times daily as needed. - This can be supplemented with Ibuprofen 600mg three times daily as needed. Ibuprofen can cause stomach upset, stomach bleeding, decreased kidney function, increased blood pressure, increased risk of heart attack and stroke. If taking one of these medications daily, it is recommended to monitor blood counts, liver and kidney function every 3-4 months. - PCP Could supplement with topical lidocaine 4% or gabapentin if needed - Foot osteoarthritis: Recommend stiffer soled shoes to decrease motion of painful joints and consider carbon fiber inserts - Golfer's elbow: Elbow Brace. Physical therapy - Carpel tunnel syndrome: Wrist splints at night. Physical therapy - b/l trochanteric bursitis, lower back pain and sciatica: Physical therapy [facility] Patient Instructions Golfer's Elbow: Care Instructions Your Care Instructions The pain and soreness in the inner part of your elbow is caused by a problem called golfer's elbow.Bending the wrist over and over again has hurt the tendons that attach to your inner elbow. The muscles in your forearm also may hurt. Golfer's elbow usually gets better with treatment at home. Follow-up care is a rodriguez part of your treatment and safety. Be sure to make and go to all appointments, and call your doctor if you are having problems. It's also a good idea to know your test resultsand keep a list of the medicines you take. How can you care for yourself at home? ?? Rest your elbow and wrist. Try to avoid movements that are painful. You may have to do this for weeks to months. Follow your doctor's directions for how long to rest. ?? Put ice or a cold pack on your elbow for 10 to 20 minutes at a time. Try to do this every 1 to 2hours for the next 3 days (when you are awake) or until the swelling goes down. Put a thin cloth between the ice and your skin. ?? Prop up the sore arm on a pillow when you ice it or anytime you sit or lie down during the next 3 days. Try to keep it above the level of your heart. This will help reduce swelling. ?? Take pain medicine exactly as directed. ? If the doctor gave you a prescription medicine for pain, take it as prescribed. ? If you are not taking a prescription pain medicine, ask your doctor if you can take an acyu-ozv-ininurs medicine. ?? If your doctor gave you a brace or splint, use it as directed. A counterforce brace is a straparound the forearm, just below the elbow. It may ease the pressure on the tendon and may spread force throughout the arm. ?? Follow your doctor's or physical therapist's directions for exercise. To prevent golfer's elbow ?? After your elbow has healed, learn the best techniques for your work or sport. A physical or occupational therapist can help you. When should you call for help? Call your doctor now or seek immediate medical care if: ? Your pain gets worse. ? You cannot bend your elbow normally. ? You have tingling, weakness, or numbness in your hand and fingers. ? Your arm or hand is cool or pale or changes color. Watch closely for changes in your health, and be sure to contact your doctor if: ? You have work problems caused by your elbow pain. ? Your pain is not better after 2 weeks. Where can you learn more? Go to https://www.IMT.net/WellGen or log into your [employer] account at [email or web address] Enter Z843 in the search box to learn more about Esa's Elbow: Care Instructions. Current as of: May 26, 2021?Content Version: 13.2 ?? [employer]. Care instructions adapted under license by [facility]. If you have questions about a medical condition or this instruction, always ask your healthcare professional. [employer] disclaims any warranty or liability for your use of this information. [facility] Patient Instructions Hip Bursitis: Care Instructions Your Care Instructions Bursitis is inflammation of the bursa. A bursa is a small sac of fluid that cushions a joint and helps it move easily. A bursa sits between a bone in the hip and the muscles and tendons in the thigh and buttock. Injury or overuse of the hip can cause bursitis. Activities that can lead to bursitis include twisting and rapid joint movement. Bursitis can cause hip pain. Bursitis usually gets better if you avoid the activity that caused it. If pain lasts or gets worse despite home treatment, your doctor may draw fluid from the bursa through a needle. This may relieveyour pain and help your doctor know if you have an infection. If so, your doctor will prescribe antibiotics. If you have inflammation only, you may get a corticosteroid shot to reduce swelling and pain. Sometimes surgery is needed to drain or remove the bursa. Follow-up care is a rodriguez part of your treatment and safety. Be sure to make and go to all appointments, and call your doctor if you are having problems. It's also a good idea to know your test resultsand keep a list of the medicines you take. How can you care for yourself at home? ?? Put ice or a cold pack on your hip for 10 to 20 minutes at a time. Put a thin cloth between the ice and your skin. ?? After 3 days of using ice, you may use heat on your hip. You can use a hot water bottle, a heating pad set on low, or a warm, moist towel. ?? Rest your hip. Stop any activities that cause pain. Switch to activities that do not stress yourhip. ?? Take your medicines exactly as prescribed. Call your doctor if you think you are having a problem with your medicine. ?? Ask your doctor if you can take an whxq-gom-gzdkjwn pain medicine, such as acetaminophen (Tylenol), ibuprofen (Advil, Motrin), or naproxen (Aleve). Be safe with medicines. Read and follow all instructions on the label. ?? To prevent stiffness, gently move the hip joint as much as you can without pain every day. As the pain gets better, keep doing cgxqw-jf-nbjxbn exercises. Ask your doctor for exercises that will make the muscles around the hip joint stronger. Do these as directed. ?? You can slowly return to the activity that caused the pain, but do it with less effort until youcan do it without pain or swelling. Be sure to warm up before and stretch after you do the activity. When should you call for help? Call your doctor now or seek immediate medical care if: ? You have a fever. ? You have increased swelling or redness in your hip. ? You cannot use your hip, or the pain in your hip gets worse. Watch closely for changes in your health, and be sure to contact your doctor if: ? You have pain for 2 weeks or longer despite home treatment. Where can you learn more? Go to https://www.IMT.net/uvDamage Houndsealth or log into your [employer] account at [email or web address] Enter I156 in the search box to learn more about Hip Bursitis: Care Instructions. Current as of: May 26, 2021?Content Version: 13.2 ?? [employer]. Care instructions adapted under license by [facility]. If you have questions about a medical condition or this instruction, always ask your healthcare professional. [employer] H[employer] disclaims any warranty or liability for your use of this information. [facility] Patient Instructions Carpal Tunnel Syndrome: Care Instructions Overview Carpal tunnel syndrome is numbness, tingling, weakness, and pain in your hand, wrist, and sometimesforearm. It is caused by pressure on the median nerve. This nerve and several tough tissues called tendons run through a space in the wrist. This space is called the carpal tunnel. The repeated hand motions used in work and some hobbies and sports can put pressure on the median nerve. can cause carpal tunnel syndrome. Several conditions, such as diabetes, arthritis, and an underactive thyroid, can also cause it. You may be able to limit an activity or change the way you do it to reduce your symptoms. You also can take other steps to feel better. If your symptoms are mild, 1 to 2 weeks of home treatment are likely to ease your pain. Surgery is needed only if other treatments do not work. Follow-up care is a rodriguez part of your treatment and safety. Be sure to make and go to all appointments, and call your doctor if you are having problems. It's also a good idea to know your test resultsand keep a list of the medicines you take. How can you care for yourself at home? ?? If possible, stop or reduce the activity that causes your symptoms. If you cannot stop the activity, take frequent breaks to rest and stretch or change hand positions to do a task. Try switching hands, such as when using a computer mouse. ?? Try to avoid bending or twisting your wrists. ?? Ask your doctor if you can take an swio-jul-tafxsia pain medicine, such as acetaminophen (Tylenol), ibuprofen (Advil, Motrin), or naproxen (Aleve). Be safe with medicines. Read and follow all instructions on the label. ?? If your doctor prescribes corticosteroid medicine to help reduce pain and swelling, take it exactly as prescribed. Call your doctor if you think you are having a problem with your medicine. ?? Put ice or a cold pack on your wrist for 10 to 20 minutes at a time to ease pain. Put a thin cloth between the ice and your skin. ?? If your doctor or your physical or occupational therapist tells you to wear a wrist splint, wearit as directed to keep your wrist in a neutral position. This also eases pressure on your median nerve. ?? Ask your doctor whether you should have physical or occupational therapy to learn how to do tasks differently. ?? Try a yoga class to stretch your muscles and build strength in your hands and wrists. Yoga has been shown to ease carpal tunnel symptoms. To prevent carpal tunnel ?? When working at a computer, keep your hands and wrists in line with your forearms. Hold your elbows close to your sides. Take a break every 10 to 15 minutes. ?? Try these exercises: ? Warm up: Rotate your wrist up, down, and from side to side. Repeat this 4 times. Stretch your fingers far apart, relax them, then stretch them again. Repeat 4 times. Stretch your thumb by pulling it back gently, holding it, and then releasing it. Repeat 4 times. ? Prayer stretch: Start with your palms together in front of your chest just below your chin. Slowly lower your hands toward your waistline while keeping your hands close to your stomach and your palms together until you feel a mild to moderate stretch under your forearms. Hold for 10 to 20 seconds. Repeat 4 times. ? Wrist flexor stretch: Hold your arm in front of you with your palm up. Bend your wrist, pointing your hand toward the floor. With your other hand, gently bend your wrist further until you feel a mild to moderate stretch in your forearm. Hold for 10 to 20 seconds. Repeat 4 times. ? Wrist extensor stretch: Repeat the steps for the wrist flexor stretch, but begin with your extended hand palm down. ?? Squeeze a rubber exercise ball several times a day to keep your hands and fingers strong. ?? Avoid holding objects (such as a book) in one position for a long time. When possible, use your whole hand to grasp an object. Using just the thumb and index finger can put stress on the wrist. ?? Do not smoke. It can make this condition worse by reducing blood flow to the median nerve. If you need help quitting, talk to your doctor about stop-smoking programs and medicines. These can increase your chances of quitting for good. When should you call for help? Watch closely for changes in your health, and be sure to contact your doctor if: ? Your pain or other problems do not get better with home care. ? You want more information about physical or occupational therapy. ? You have side effects of your corticosteroid medicine, such as: ? Weight gain. ? Mood changes. ? Trouble sleeping. ? Bruising easily. ? You have any other problems with your medicine. Where can you learn more? Go to https://www.IMT.[employer]/WellGen or log into your [employer] account at [email or web address].AdRoll Enter R432 in the search box to learn more about Carpal Tunnel Syndrome: Care Instructions. Current as of: May 26, 2021?Content Version: 13.2 ?? [employer]. Care instructions adapted under license by [facility]. If you have questions about a medical condition or this instruction, always ask your healthcare professional. [employer] disclaims any warranty or liability for your use of this information. documented in this encounter Ordered Prescriptions Prescription Sig Dispense Quantity Refills Last Filled Start Date End Date acetaminophen (TYLENOL) 500 mg tablet Take 2 Tablets by mouth every 6 hours as needed for Pain. 120 Tablet 1 06/29/2022 diclofenac sodium gel Apply 4 g topically 4 times daily as needed for Pain. 200 g 2 06/29/2022 documented in this encounter Progress Notes * Nish Silvestre MBBS - 06/29/2022 1445 EDT [facility] Rheumatology and Clinical Immunology Initial Patient Visit Chief Complaint: Geetha Figueroa presents today for new patient visit. Patient ID: Geetha Figueroa Date of Service: 06/29/2022 Patient age: 57 y.o. Patient gender: female Subjective / HPI: Geetha Figueroa is an 57-year-old woman with a background of obesity and GERD who presented to [facility] rheumatology clinic for a new patient assessment. Ms. Figueroa presented to her primary care doctor with arthralgia involving her shoulders, back, hips and knees. Musculoskeletal physical examination identified no abnormalities. Rheumatoid factor negative and C-reactive protein 0.6 (ULN 0.3). Patient was referred to rheumatology for evaluation On assessment today, Ms. Figueroa endorses an approximately 1 year of sudden onset worsening arthralgiaprincipally localized to: - Fingers: No - Wrists: Intermittent right - Elbows: B/l - Shoulders: B/l (R > L) - Neck: Yes - Low back: Yes [longstanding] - Hips: B/l - Knees: B/l - Ankles: No - Feet/ toes: B/l Three most painful joints include: Shoulders, hips and knees. Minimal morning stiffness (20 minutes). Denies transient joint swelling, warmth or erythema. Symptoms exacerbated by activity, weight bearing (climbing stairs) and relieved in response to ibuprofen / physical therapy. Pain is worst at the end of the day. No psoriasis, uveitis or STDs or UTIs. Review of Systems: - ROS (+) plantar fascitis (2020). Intermittent b/l thumb, 2nd or 3rd finger numbness. B/l sharp posterior lower extremity pain exacerbated by sitting of hard surfaces. Review of Systems: A complete 10 point ROS was performed and pertinent positive and negative findings listed in HPI, otherwise negative. Family History: - Mother: PMR Social History: - Grew up in [place]. 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 - Lives with mother and daughter. - Difficulty carrying heavy bags. - Exercise: Walking - Nonsmoker. Rare ETOH use. No recreational drug use. Current Outpatient Medications Medication ??? acetaminophen (TYLENOL) 500 mg tablet ??? albuterol 90 mcg/actuation inhaler ??? diclofenac sodium gel ??? omeprazole (PRILOSEC) 40 mg capsule ??? phentermine 15 mg capsule No current facility-administered medications for this visit. No Known Allergies PMH PSH Past Medical History: Diagnosis Date ??? History of blood transfusion No past surgical history on file. Social History Family history Social History Tobacco Use ??? Smoking status: Never Smoker Substance Use Topics ??? Alcohol use: Not on file No family history on file. Objective: BP 122/87 (BP Cuff Location: Right arm, BP Cuff Sizes: Adult, regular) Pulse 72 Ht 157.5 cm (62.01) Wt (!) 106.1 kg (234 lb) BMI 42.79 kg/m?? Body mass index is 42.79 kg/m??. General: No acute distress. Alert, fully oriented. Lungs: Normal expansion. Clear to auscultation bilaterally with no crackles, crepitations or wheeze. Heart: Regular rate and rhythm, I + II present with no murmur Abdomen: Obesity. Soft, non-tender, non-distended. No organomegaly. Bowel sounds present. Extremities: Extremities without cyanosis or edema. Skin: No rashes or lesions Musculoskeletal: Hand: No synovitis, muscle wasting or deformity. Full range of movement. Tinel's test negative. Elbow: Medial epicondyle tenderness exacerbated by wrist flexion against resistance. Normal range of motion. No nodules. Golfers elbow Shoulder: No synovitis or swelling. Slightly reduced extension and internal rotation. Tenderness with internal rotation. Pain with abduction. Pain with internal rotation against resistance bilaterally. Spine: Lumbar vertebral tenderness. Hip: Trochanteric bursa tender on direct palpation of greater trochanter and exacerbated by hip flexion and external rotation. Left straight leg raise positive Knee: No asymmetry, muscle wasting, scars or deformities. No joint effusions or swellings. No tenderness on palpation of femoral epicondyle or tibial tuberosity. B/l crepitus. Foot: No tenderness on palpation of the ankles or MTP joint bilaterally. Normal range of movement. B/l halux valgus. Workup: Labs: - Reviewed Imaging: - Awaiting Assessment & Plan: Symmetrical arthralgia primarily affecting large joints: Sparing small joints. Symptoms exacerbatedby activity and relieved with rest. No morning stiffness or joint warmth / swelling / erythema. 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 No synovitis on examination. Impression: History and physical examination more suggestive of degenerative rather thaninflammatory process. Note history of plantar fascitis however no history of uveitis, psoriasis or recent infection strongly suggestive of SpA. Symptoms less likely driven by autoimmune process. Likely osteoarthritis with co-existing degenerative disk disease, sciatica, golfers elbow, carpal tunnel syndrome and rotator cuff syndrome . - Request: CBC, CMP, ESR / CRP and CCP - Request XR lumbar spine, knees and feet. - Referral to physical therapy, weight loss, and recommend regular non-weight bearing exercise suchas swimming or cycling. - Acetaminophen 1g four times daily as needed and diclofenac gel four times daily as needed. - This can be supplemented with Ibuprofen 600mg three times daily as needed. Ibuprofen can cause stomach upset, stomach bleeding, decreased kidney function, increased blood pressure, increased risk of heart attack and stroke. If taking one of these medications daily, it is recommended to monitor blood counts, liver and kidney function every 3-4 months. - PCP Could supplement with topical lidocaine 4% or gabapentin if needed - Foot osteoarthritis: Recommend stiffer soled shoes to decrease motion of painful joints and consider carbon fiber inserts B/l carpal tunnel syndrome: B/l thumb, 2nd and 3rd finger numbness. Wakes from sleep at night. 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 Tinel's test negative. - Wrist splits at night and physical therapy. B/l golfers elbow: Medial epicondyle tenderness exacerbated by wrist flexion against resistance - Braces and physical therapy Rotator cuff syndrome: Reduced active extension and internal rotation. b/l tenderness internal rotation. - Physical therapy Suspected DDD and left sciatica: Exacerbated by Straight leg raise positive left. - XR lumbar spine - Physical therapy Follow up PRN HEMANT Sandra, 06/29/2022 15:21 I spent a total of 60 minutes on the date of this encounter meeting with the patient and reviewing documentation/coordinating care as described in the above note. No procedures were performed at the time of the visit. documented in this encounter Plan of Treatment Not on file documented as of this encounter Results * XR LUMBAR SPINE 2-3 VIEWS (07/10/2022 11:15 EDT) Anatomical Region Laterality Modality Spine Computed Radiogr aphy 07/10/2022 12:5 3 EDT Impressions 07/10/2022 12:53 EDT 1. ??Mild-moderate lumbar spondylosis. 2. ??No acute fracture visible. Narrative 07/10/2022 12:53 EDT XR LUMBAR SPINE 2-3 VIEWS ?? Signs and Symptoms/Comments: lower back pain exacerbated by activity and relieved by rest. BMI > 40. CRP mildly elevated. ? DDD Comparison: None. FINDINGS: Lumbar Spine: Upright AP and lateral views were performed. Vertebral bodies: There are 5 lumbar type vertebral bodies. Small ribs noted at T12. Alignment: Mild lumbar levoscoliosis. Grade 1 anterolisthesis of L4 on L5. No definite L4 pars defects visible, however CT would be more definitive. Bones: No acute fracture identified. Degenerative changes: Mild-moderate multilevel degenerative disc disease and facet arthrosis. SI joints: Mild bilateral degenerative changes. Soft tissues: Unremarkable. Procedure Note Luis Fernando Keen MD - 07/10/2022 XR LUMBAR SPINE 2-3 VIEWS Signs and Symptoms/Comments: lower back pain exacerbated by activity andrelieved by rest. BMI > 40. CRP mildly elevated. ? DDD Comparison: None. FINDINGS: Lumbar Spine: Upright AP and lateral views were performed. Vertebral bodies: There are 5 lumbar type vertebral bodies. Small ribsnoted at T12. Alignment: Mild lumbar levoscoliosis. Grade 1 anterolisthesis of L4 on L5.No definite L4 pars defects visible, however CT would be moredefinitive. Bones: No acute fracture identified. Degenerative changes: Mild-moderate multilevel degenerative disc diseaseand facet arthrosis. SI joints: Mild bilateral degenerative changes. Soft tissues: Unremarkable. IMPRESSION 1. Mild-moderate lumbar spondylosis. 2. No acute fracture visible. Nish MARCOS IMG DIAGNOSTIC IMAGING ORDERA BLES Final Result * XR FOOT RIGHT 1-2 VIEWS (07/10/2022 11:15 EDT) Anatomical Region Laterality Modality Lower Extremities Right Computed Radio graphy 07/10/2022 12:3 7 EDT Impressions 07/10/2022 12:37 EDT 1. ??Moderate left and mild right hallux valgus deformities. Mild bilateral 1st MTP arthrosis. 2. ??Mild bilateral midfoot arthrosis. 3. ??Prominent bilateral calcaneal spurring at the attachments of the plantar fascia. Narrative 07/10/2022 12:37 EDT XR FOOT RIGHT 1-2 VIEWS XR FOOT LEFT 1-2 VIEWS ?? Signs and Symptoms/Comments: ??arthralgia, exacerbated by activity and relieved by rest. No synovitis and normal ROM on examination. ? Degenerative vs. erosive changes Comparison: None. FINDINGS: Right foot: 2 views were performed. Bones: No acute fracture or malalignment. Degenerative changes: Mild hallux valgus deformity measuring 15 degrees, associated mild 1st MTP arthrosis. Mild midfoot degenerative changes. Prominent posterior calcaneal spurring at the attachment of the plantar fascia. No erosions visible. Soft tissues: Mild soft tissue swelling. Left foot: 2 views were performed. Bones: No acute fracture or malalignment. Tiny old-appearing avulsion fracture fragment suspected adjacent to the tip of the medial malleolus. Degenerative changes: Moderate hallux valgus deformity measuring 25 degrees, with associated mild 1st MTP arthrosis. Mild midfoot arthrosis. Prominent posterior calcaneal spurring at the attachment of the plantar fascia. No erosions visible. Soft tissues: Mild soft tissue swelling. Procedure Note Luis Fernando Keen MD - 07/10/2022 XR FOOT RIGHT 1-2 VIEWS XR FOOT LEFT 1-2 VIEWS Signs and Symptoms/Comments: arthralgia, exacerbated by activity andrelieved by rest. No synovitis and normal ROM on examination. ?Degenerative vs. erosive changes Comparison: None. FINDINGS: Right foot: 2 views were performed. Bones: No acute fracture or malalignment. Degenerative changes: Mild hallux valgus deformity measuring 15 degrees,associated mild 1st MTP arthrosis. Mild midfoot degenerative changes.Prominent posterior calcaneal spurring at the attachment of the plantarfascia. No erosions visible. Soft tissues: Mild soft tissue swelling. Left foot: 2 views were performed. Bones: No acute fracture or malalignment. Tiny old-appearing avulsionfracture fragment suspected adjacent to the tip of the medial malleolus. Degenerative changes: Moderate hallux valgus deformity measuring 25degrees, with associated mild 1st MTP arthrosis. Mild midfoot arthrosis.Prominent posterior calcaneal spurring at the attachment of the plantarfascia. No erosions visible. Soft tissues: Mild soft tissue swelling. IMPRESSION 1. Moderate left and mild right hallux valgus deformities. Mild [id number] MTP arthrosis. 2. Mild bilateral midfoot arthrosis. 3. Prominent bilateral calcaneal spurring at the attachments of theplantar fascia. Nish MARCOS IMG DIAGNOSTIC IMAGING ORDERA BLES Final Result * XR FOOT LEFT 1-2 VIEWS (07/10/2022 11:15 EDT) Anatomical Region Laterality Modality Lower Extremities Left Computed Radio graphy 07/10/2022 12:3 7 EDT Impressions 07/10/2022 12:37 EDT 1. ??Moderate left and mild right hallux valgus deformities. Mild bilateral 1st MTP arthrosis. 2. ??Mild bilateral midfoot arthrosis. 3. ??Prominent bilateral calcaneal spurring at the attachments of the plantar fascia. Narrative 07/10/2022 12:37 EDT XR FOOT RIGHT 1-2 VIEWS XR FOOT LEFT 1-2 VIEWS ?? Signs and Symptoms/Comments: ??arthralgia, exacerbated by activity and relieved by rest. No synovitis and normal ROM on examination. ? Degenerative vs. erosive changes Comparison: None. FINDINGS: Right foot: 2 views were performed. Bones: No acute fracture or malalignment. Degenerative changes: Mild hallux valgus deformity measuring 15 degrees, associated mild 1st MTP arthrosis. Mild midfoot degenerative changes. Prominent posterior calcaneal spurring at the attachment of the plantar fascia. No erosions visible. Soft tissues: Mild soft tissue swelling. Left foot: 2 views were performed. Bones: No acute fracture or malalignment. Tiny old-appearing avulsion fracture fragment suspected adjacent to the tip of the medial malleolus. Degenerative changes: Moderate hallux valgus deformity measuring 25 degrees, with associated mild 1st MTP arthrosis. Mild midfoot arthrosis. Prominent posterior calcaneal spurring at the attachment of the plantar fascia. No erosions visible. Soft tissues: Mild soft tissue swelling. Procedure Note Luis Fernando Keen MD - 07/10/2022 XR FOOT RIGHT 1-2 VIEWS XR FOOT LEFT 1-2 VIEWS Signs and Symptoms/Comments: arthralgia, exacerbated by activity andrelieved by rest. No synovitis and normal ROM on examination. ?Degenerative vs. erosive changes Comparison: None. FINDINGS: Right foot: 2 views were performed. Bones: No acute fracture or malalignment. Degenerative changes: Mild hallux valgus deformity measuring 15 degrees,associated mild 1st MTP arthrosis. Mild midfoot degenerative changes.Prominent posterior calcaneal spurring at the attachment of the plantarfascia. No erosions visible. Soft tissues: Mild soft tissue swelling. Left foot: 2 views were performed. Bones: No acute fracture or malalignment. Tiny old-appearing avulsionfracture fragment suspected adjacent to the tip of the medial malleolus. Degenerative changes: Moderate hallux valgus deformity measuring 25degrees, with associated mild 1st MTP arthrosis. Mild midfoot arthrosis.Prominent posterior calcaneal spurring at the attachment of the plantarfascia. No erosions visible. Soft tissues: Mild soft tissue swelling. IMPRESSION 1. Moderate left and mild right hallux valgus deformities. Mild [id number] MTP arthrosis. 2. Mild bilateral midfoot arthrosis. 3. Prominent bilateral calcaneal spurring at the attachments of theplantar fascia. Nish MARCOS IMG DIAGNOSTIC IMAGING ORDERA BLES Final Result * XR KNEE LEFT 3 VIEWS (07/10/2022 11:15 EDT) Anatomical Region Laterality Modality Lower Extremities Left Computed Radio graphy 07/10/2022 12:3 3 EDT Impressions 07/10/2022 12:33 EDT Mild right and minimal left knee degenerative changes. Narrative 07/10/2022 12:33 EDT XR KNEE RIGHT 3 VIEWS XR KNEE LEFT 3 VIEWS ?? Signs and Symptoms/Comments: ??arthralgia, exacerbated by activity and relieved by rest. No synovitis and normal ROM on examination. ? Degenerative vs. Erosive changes Comparison: None. Findings: Right Knee: Upright AP, lateral and sunrise views. Bones: No acute fracture or malalignment. Degenerative changes: Mild degenerative changes, most conspicuous in the medial compartment. Soft tissues: No significant joint effusion visible. Left Knee: Upright AP, lateral and sunrise views. Bones: No acute fracture or malalignment. Degenerative changes: Minimal degenerative changes. Soft tissues: No significant joint effusion visible. Procedure Note Luis Fernando Keen MD - 07/10/2022 XR KNEE RIGHT 3 VIEWS XR KNEE LEFT 3 VIEWS Signs and Symptoms/Comments: arthralgia, exacerbated by activity andrelieved by rest. No synovitis and normal ROM on examination. ?Degenerative vs. Erosive changes Comparison: None. Findings: Right Knee: Upright AP, lateral and sunrise views. Bones: No acute fracture or malalignment. Degenerative changes: Mild degenerative changes, most conspicuous in themedial compartment. Soft tissues: No significant joint effusion visible. Left Knee: Upright AP, lateral and sunrise views. Bones: No acute fracture or malalignment. Degenerative changes: Minimal degenerative changes. Soft tissues: No significant joint effusion visible. IMPRESSION Mild right and minimal left knee degenerative changes. Nish MARCOS IMG DIAGNOSTIC IMAGING ORDERA BLES Final Result * XR KNEE RIGHT 3 VIEWS (07/10/2022 11:15 EDT) Anatomical Region Laterality Modality Lower Extremities Right Computed Radio graphy 07/10/2022 12:3 3 EDT Impressions 07/10/2022 12:33 EDT Mild right and minimal left knee degenerative changes. Narrative 07/10/2022 12:33 EDT XR KNEE RIGHT 3 VIEWS XR KNEE LEFT 3 VIEWS ?? Signs and Symptoms/Comments: ??arthralgia, exacerbated by activity and relieved by rest. No synovitis and normal ROM on examination. ? Degenerative vs. Erosive changes Comparison: None. Findings: Right Knee: Upright AP, lateral and sunrise views. Bones: No acute fracture or malalignment. Degenerative changes: Mild degenerative changes, most conspicuous in the medial compartment. Soft tissues: No significant joint effusion visible. Left Knee: Upright AP, lateral and sunrise views. Bones: No acute fracture or malalignment. Degenerative changes: Minimal degenerative changes. Soft tissues: No significant joint effusion visible. Procedure Note Luis Fernando Keen MD - 07/10/2022 XR KNEE RIGHT 3 VIEWS XR KNEE LEFT 3 VIEWS Signs and Symptoms/Comments: arthralgia, exacerbated by activity andrelieved by rest. No synovitis and normal ROM on examination. ?Degenerative vs. Erosive changes Comparison: None. Findings: Right Knee: Upright AP, lateral and sunrise views. Bones: No acute fracture or malalignment. Degenerative changes: Mild degenerative changes, most conspicuous in themedial compartment. Soft tissues: No significant joint effusion visible. Left Knee: Upright AP, lateral and sunrise views. Bones: No acute fracture or malalignment. Degenerative changes: Minimal degenerative changes. Soft tissues: No significant joint effusion visible. IMPRESSION Mild right and minimal left knee degenerative changes. Nish MARCOS IMG DIAGNOSTIC IMAGING ORDERA BLES Final Result documented in this encounter Visit Diagnoses Diagnosis Primary osteoarthritis of both knees- Primary Primary localized osteoarthrosis, lower leg Elevated C-reactive protein (CRP) Bilateral carpal tunnel syndrome Carpal tunnel syndrome Golfers elbow of right upper extremity Golfer's elbow, left Sciatica of left side Sciatica Valgus deformity of both great toes Elevated C-reactive protein (CRP) Bilateral carpal tunnel syndrome Carpal tunnel syndrome Golfers elbow of right upper extremity Golfer's elbow, left Sciatica of left side Sciatica Valgus deformity of both great toes Primary osteoarthritis of both knees Primary localized osteoarthrosis, lower leg documented in this encounter Care Teams Apartment Maintenance Relationship Specialty Start Date End Date Maye House NP [address] [place] [address] PCP - General 11/04/15 07/09/22 Maye House NP [address] [place] [address] 10/27/15 documented as of this encounter
--- OUTSIDE RECORDS SUMMARY | 2024-12-26 19:40 | XMS_ITS | Encounter Summary ---
[facility] [place] [address] Care Team Providers Care Professor Of Marketing Name Role Phone Dulce Funk APRN Primary Care Provider [phone] Encounter Details Date Type Department Care Team (Latest Contact Info) Description 09/12/2023 9:00 AM EDT Clinical [place] [id number] Surgery follow-up Social History Tobacco Use Types Packs/Day Years Used Date Smoking Tobacco: Never Alcohol Use Standard Drinks/Week Comments Never 0 (1 standard drink = 0.6 oz pur e alcohol) [facility] Inpatient Questions Answer Date Recorded Does Anyone [...] on file documented as of this encounter Patient Instructions * Patient Instructions* Belia Cole RN - 09/12/2023 9:00 AM EDT Signs of Infection : A temperature over 100.4 F or 38 C. Redness at the incision line that is beginning to spread away from the incision after the first 48 hours. Yellow pus-like or foul smelling drainage larger than a dime size from the incision or drain sites. Increased pain / discomfort that is not relieved by your pain medicine such as extra strength tylenol, or NSAIDS For any of these symptoms please call our nurse's line at [phone] M - F 8 - 5 For after hours, and on weekends; Call [phone] and ask for our plastic surgeon chyron operator Your drains have removed your drain(s) have a compression dressing. You may remove the dressing in 24 hours and shower. After showering, you may cover the drain site(s) with a band aid,or guaze if still draining a largeamount of fluid. The drain site is typically closed in approximately three days. Please call the clinic with any questions or concerns @ [phone] Sunday through Sunday from 8-5. On weekends, nights, or holidays, call the Main Hospital number @ [phone] and ask for the Plastic Surgeon chyron operator. Activity restrictions until 6 weeks post-op: do not lift/push/pull > 5 pounds, no running or bouncing, no push-ups or plank position. Wear compressive bra around the clock until six weeks after surgery. Six weeks after surgery all restrictions lifted except no under wire bra. Do not wear an under wirebra until you gain normal sensation under your breast (expect 3-6 months) -SCAR MASSAGE TECHNIQUE: to begin 4-6 weeks following surgery What is a scar? When an injury occurs, the body immediately begins to repair itself & the area becomes swollen & sore. Eventually small collagen fibers form, becoming a solid tissue that results in a scar. This scar will continue to change in appearance for 1-2 years. Ideally, a scar is smooth & flat, blending in with the surrounding skin. However, some scars may become highly visible & unattractive due to factors such as your age, scar location & size, nutrition, genetics, or infection. A hypertrophic scar occurs when there is an excess production of collagen tissue that is elevated but remains within the wound boundaries. The scar is tense, red, & can be associated with itching & tenderness. A hypertrophic scar can be ordinary (usually stabilizes in 3 months & may even get smaller and smoother) or keloid. The keloid scar invades nearby tissue that was not part of the original wound, tends to enlarge even after 6 months & does not get softer. Will scar massage make my scars disappear? Nothing can make scars disappear. However, massaging the scar assists the body in breaking down thescar tissue to give it a flatter, softer, appearance. Massage also mobilizes the scar, preventing it from adhering to underlying tissue, tendons, & nerves. You can make the greatest difference in the appearance of the scar if you massage it in the first 3months. What should I use on my scars? You will hear many recommendations. This clinic finds that it is the massage itself that reduces the scar & not necessarily the choice of ointments or creams. We do discourage the use of Vitamin E oil, however, due to studies that have reported scar inflammation & deterioration. How do I massage my scars? Apply the lotion or cream into the scar 3-4 times a day for 8 weeks on new scars, and 3-4 times perday for 3 to 6 months on existing scars. Using your finger, apply pressure to the scar in a crosswise & circular direction, bearing down as hard as tolerated. Remember to protect your scar from the sun, especially in the first 6-12 months, by using a moisturizer with sunblock and wearing a physical barrier (ie: a hat) when possible documented in this encounter Progress Notes * Belia Cole RN - 09/12/2023 9:00 AM EDT Plastic Surgery Post Op Note Geetha Figueroa returned to our office today for post surgical follow-up drain removal Date of surgery: 09/04/23 Procedure(s): Bilateral breast reduction (Nigriny) POD # 8 Subjective : Pain: Geetha reports no discomfort. She already feels substantial relief of her back pain and is happy with her results. Objective : General: Alert, comfortable, conversant, ambulating Breasts: Swelling: mild bilaterally Bruising: mild bilaterally Good symmetry and good perfusion of NAC's bilaterally.Areola incisions are approximated with no drainage. Nipples have normal projection. Incisions are well approximated . Drains meet criteria for removal today. Each drain has been less than 30 mls of serous drainage forthe last three days Surgical bra fitted, and in use. Path report indicating benign breast tissue. Assessment: No evidence of delayed healing,erythema, or fluid collection. Incisions CDI Plan: Instructed in care of incision lines,and activity restrictions,provided in AVS. We reviewed signs and symptoms of infection, spitting sutures, parameters for normal post op swelling and bruising as stated in our post op brochure. We reviewed communication through [facility] portal, and correct phone numbers to call for concerns on AVS, Begin scar massage at 4-6 weeks post op- instructions provided in AVS Supplies: a jackson surgical bra was provided Follow up: 6 months with ARNOLDO with Dr. Miles in clinic or sooner if needed. Geetha expressed understanding of her instructions, and is happy with today's visit and plan of care. documented in this encounter Plan of Treatment Not on file documented as of this encounter Visit Diagnoses Diagnosis Surgery follow-up Follow-up examination, following unspecified surgery documented in this encounter Care Teams Professor Of Marketing Relationship Specialty Start Date End Date Dulce Funk APRN [place] [address] PCP - General Family Medicine 04/09/23 04/30/24 documented as of this encounter
--- OUTSIDE RECORDS SUMMARY | 2024-12-26 19:40 | XMS_ITS | Encounter Summary ---
Author Organization [facility] Address [address] [place] [address] Care Team Providers Care Passenger Attendant Name Role Phone Harsh Maye Keith HOUSEKEEPING STAFF Unavailable [phone] Dulce Funk Primary Care Provider [phone] Reason for Referral * Radiology Services (Routine/Next Available) - Authorization Not Required Specialty Diagnoses / Procedures Referred By Damon t Referred To Contact Diagnoses Elevated C-reactive protein (CRP) Bilateral carpal tunnel syndrome Golfers elbow of right upper extremity Golfer's elbow, left Sciatica of left side Valgus deformity of both great toes Primary osteoarthritis of both knees Procedures XR LUMBAR SPINE 2-3 VIEWS Nish Silvestre MBBS Phone: tel: fax: [facility] [place] ID [place] Reason Start Date Expiration Date Visits Requested Visits Authorized [id number] Authorization Not Required 06/29/2022 1 1 * Radiology Services (Routine/Next Available) - Authorization Not Required Specialty Diagnoses / Procedures Referred By Contmiguel t Referred To Contact Diagnoses Elevated C-reactive protein (CRP) Bilateral carpal tunnel syndrome Golfers elbow of right upper extremity Golfer's elbow, left Sciatica of left side Valgus deformity of both great toes Primary osteoarthritis of both knees Procedures XR FOOT RIGHT 1-2 VIEWS Nish Silvestre MBBS Phone: tel: fax: [facility] [place]erral ID Status Reason Start Date Expiration Date Visits Requested Visits Authorized [id number] Authorization Not Required 06/29/2022 1 1 * [...] VIEWS Nish Silvestre MBBS Phone: tel: fax: [facility] [place]erral ID Status Reason Start Date Expiration Date Visits Requested Visits Authorized [id number] Authorization Not Required 06/29/2022 1 1 * [...] VIEWS Nish Silvestre MBBS Phone: tel: fax: [facility] [place]erral ID Status Reason Start Date Expiration Date Visits Requested Visits Authorized [id number] Authorization Not Required 06/29/2022 1 1 * [...] VIEWS Nish Silvestre MBBS Phone: tel: fax: [facility] [place]erral ID Status Reason Start Date Expiration Date Visits Requested Visits Authorized [id number] Authorization Not Required 06/29/2022 1 1 Reason for Visit * Radiology Services (Routine/Next Available) - Authorization Not Required Specialty Diagnoses / Procedures Referred By Damon rodriguez Referred To Contact Diagnoses Elevated C-reactive protein (CRP) Bilateral carpal tunnel syndrome Golfers elbow of right upper extremity Golfer's elbow, left Sciatica of left side Valgus deformity of both great toes Primary osteoarthritis of both knees Procedures XR FOOT LEFT 1-2 VIEWS Nish Silvestre MBBS Phone: tel: fax: [facility] [place]erral ID Status Reason Start Date Expiration Date Visits Requested Visits Authorized [id number] Authorization Not Required 06/29/2022 1 1 Encounter Details Date Type Department Care Team (Latest Contact Info) Description 07/10/2022 10:44 EDT - 07/10/2022 23:59 EDT Hospital Encounter [facility] Xray [address] [place] [address] Elevated C-reactive protein (CRP); Bilateral carpal tunnel syndrome; Golfers elbow of right upper extremity; Golfer's elbow, left; Sciatica of left side; Valgus deformity of both great toes; Primary osteoarthritis of both knees Discharge Disposition: Home or Self Care Social History Tobacco Use Types Packs/Day Years [...] on file documented as of this encounter Functional Status * Because of [...] 06/29/2022 14:35 EDT documented in this encounter Medications at Time of Discharge acetaminophen (TYLENOL) 500 mg tablet Take 2 Tablets by mouth every 6 hours as needed for Pain. 120 Tablet 1 06/29/2022 albuterol 90 mcg/actuation inhaler Inhale 180 mcg as directed every 4 hours. Inhale 1 puff as directed every 4-6 hours as needed for shortness of breath, wheezing. diclofenac sodium gel Apply 4 g topically 4 times daily as needed for Pain. 200 g 2 06/29/2022 omeprazole (PRILOSEC) 40 mg capsule Take 40 mg by mouth daily. Delayed release phentermine 15 mg capsule Take 15 mg by mouth every morning. documented as of this encounter Discharge Disposition Disposition Code Departure Means Destination Home or Self Care documented in this encounter Plan of Treatment Not on file documented as of this encounter Procedures Procedure Name Priority Date/Time Associated Diagnosis Comments XR LUMBAR SPINE 2-3 VIEWS Routine 07/10/2022 11:15 EDT Elevated C-reactive protein (CRP) Bilateral carpal tunnel syndrome Golfers elbow of right upper extremity Golfer's elbow, left Sciatica of left side Valgus deformity of both great toes Primary osteoarthritis of both knees XR KNEE RIGHT 3 VIEWS Routine 07/10/2022 11:15 EDT Elevated C-reactive protein (CRP) Bilateral carpal tunnel syndrome Golfers elbow of right upper extremity Golfer's elbow, left Sciatica of left side Valgus deformity of both great toes Primary osteoarthritis of both knees XR KNEE LEFT 3 VIEWS Routine 07/10/2022 11:15 EDT Elevated C-reactive protein (CRP) Bilateral carpal tunnel syndrome Golfers elbow of right upper extremity Golfer's elbow, left Sciatica of left side Valgus deformity of both great toes Primary osteoarthritis of both knees XR FOOT RIGHT 1-2 VIEWS Routine 07/10/2022 11:15 EDT Elevated C-reactive protein (CRP) Bilateral carpal tunnel syndrome Golfers elbow of right upper extremity Golfer's elbow, left Sciatica of left side Valgus deformity of both great toes Primary osteoarthritis of both knees XR FOOT LEFT 1-2 VIEWS Routine 07/10/2022 11:15 EDT Elevated C-reactive protein (CRP) Bilateral carpal tunnel syndrome Golfers elbow of right upper extremity Golfer's elbow, left Sciatica of left side Valgus deformity of both great toes Primary osteoarthritis of both knees documented in this encounter Results * XR LUMBAR SPINE [...] and mild right hallux valgus deformities. Mild [id number] MTP arthrosis. 2. Mild bilateral midfoot arthrosis. [...] and mild right hallux valgus deformities. Mild [id number] MTP arthrosis. 2. Mild bilateral midfoot arthrosis. 3. Prominent bilateral calcaneal spurring at the attachments of theplantar fascia. Nish MARCOS IM DIAGNOSTIC IMAGING ORDERA BLES Final Result * [...] minimal left knee degenerative changes. Nish MARCOS IM DIAGNOSTIC IMAGING ORDERA BLES Final Result * [...] documented in this encounter Visit Diagnoses Diagnosis Elevated C-reactive protein (CRP) Bilateral carpal tunnel syndrome Carpal tunnel syndrome Golfers elbow of right upper extremity Golfer's elbow, left Sciatica of left side Sciatica Valgus deformity of both great toes Primary osteoarthritis of both knees Primary localized osteoarthrosis, lower leg documented in this encounter Care Teams Passenger Attendant Relationship Specialty Start Date End Date Dulce Funk FNP [address] [place] [address] PCP - General 07/10/22 Maye House NP [address] [place] [address] 10/27/15 documented as of this encounter
--- OUTSIDE RECORDS SUMMARY | 2024-12-26 19:40 | XMS_ITS | Encounter Summary ---
Author Organization [facility] Address [address] [place] [address] Care Team Providers Care Golf Course Architect Name Role Phone Maye House 3RD GRADE TEACHER Unavailable [phone] Maye House 3RD GRADE TEACHER Primary Care Provider [phone] Encounter Details Date Type Department Care Team (Late st Contact Info) Description 06/15/2022 Abstract [facility] [place] [address] [place] [id number] Nish Silvestre MBBS [address] [facility], [facility] [address] [place] [address] Social History Tobacco Use Types Packs/Day Years [...] on file documented as of this encounter Progress Notes * Carmina Hubbard - 06/15/2022 0853 EDT Chart abstracted 06/15/22. bm documented in this encounter Plan of Treatment Not on file documented as of this encounter Visit Diagnoses Not on filedocumented in this encounter Historical Medications * This list may reflect changes made after this encounter. albuterol 90 mcg/actuation inhaler Inhale 180 mcg as directed every 4 hours. Inhale 1 puff as directed every 4-6 hours as needed for shortness of breath, wheezing. omeprazole (PRILOSEC) 40 mg capsule Take 40 mg by mouth daily. Delayed release phentermine 15 mg capsule Take 15 mg by mouth every morning. added in this encounter Care Teams Golf Course Architect Relationship Specialty Start Date End Date Maye House 3RD GRADE TEACHER [address] [place] [address] PCP - General 11/04/15 07/09/22 Maye House 3RD GRADE TEACHER [address] [place] [address] 10/27/15 documented as of this encounter
--- OUTSIDE RECORDS SUMMARY | 2024-12-26 19:40 | XMS_ITS | Encounter Summary ---
Author Organization [facility] Address [address] [place] [address] Care Team Providers Care Automotive Technician Name Role Phone Maye House CONTROLS TECHNICIAN Unavailable [phone] Dulce Funk Primary Care Provider [phone] Encounter Details Date Type Department Care Team (Late st Contact Info) Description 03/29/2023 Lab Requisition [facility] Pathology & Laboratory Medicine - [facility] [address] [place] [address] Armen Thornton MD [address] [place] [address], [address] [place] [address] Encounter for screening for malignant neoplasm of colon Social History Tobacco Use Types Packs/Day Years [...] 06/29/2022 14:35 EDT documented in this encounter Plan of Treatment Not on file documented as of this encounter Procedures Procedure Name Priority Date/Time Associated Diagnosis Comments SURGICAL PATHOLOGY Today 03/29/2023 10 :50 EDT Encounter for screening for malignant neoplasm of colon documented in this encounter Results * SURGICAL PATHOLOGY (03/29/2023 10:50 EDT) Note to Patient The following pathology results have been interpreted by your pathologist and may be available to you before your health provider has had the opportunity to review them. Please allow time for your provider to receive these results and explore management options, if applicable. 04/02/2023 7:33 [facility] Final Diagnosis A. RECTUM, POLYP, BIOPSY: - Fragments of tubular adenoma. 04/02/2023 7:33 [facility] Attestation By the signature below, the attending physician certifies that they have 1) personally conducted a gross and/or microscopic examination of the described specimen(s), and/or personally interpreted the results of laboratory testing of the described specimen(s), and 2) personally rendered or confirmed the above diagnosis. 04/02/2023 7:33 [facility] at 0733 Clinical History Screening, rectal polyp, diverticulosis 04/02/2023 7:33 [facility] Gross Description A. Received in formalin labelled with proper patient identification (initials H, B) and rectal polyp is an aggregate of flanagan-brown tissue fragments (1.1 x 0.8 x 0.2 cm). Entirely submitted in A1. LUIS HUERTA(ASCP) 03/30/2023 7:37 04/02/2023 7:33 [facility] Performing Lab [facility] 04/02/2023 7:33 [facility] Scanned Images 04/02/2023 7:33 [facility] Tissue SPECIMEN FROM RECTUM / Unknown 03/29/2023 10:50 EDT 03/29/2023 18:03 EDT us Armen Thornton MD PATHOLOGY ORDERABLES Final Resu lt [facility] [address] [place] [address] documented in this encounter Visit Diagnoses Diagnosis Encounter for screening for malignant neoplasm of colon Special screening for malignant neoplasms, colon documented in this encounter Care Teams Automotive Technician Relationship Specialty Start Date End Date Dulce Funk FNP [address] [place] [address] PCP - General 07/10/22 Maye House, CONTROLS TECHNICIAN [address] [place] [address] 10/27/15 documented as of this encounter
--- OUTSIDE RECORDS SUMMARY | 2024-12-26 19:40 | XMS_ITS | Encounter Summary ---
Author Organization [facility] Address [address] [place] [address] Care Team Providers Care Hand Bindery Assembly Worker Name Role Phone Maye House STRESS ANALYST Primary Care Provider [phone] Encounter Details Date Type Department Care Team (Late st Contact Info) Description 08/20/2007 Results Only [facility] [place] [facility] [address] [place] [address] Sandra Coffey MD [address] [place] [address] [place] [address] Social History Tobacco Use Types Packs/Day Years [...] Date/Time Associated Diagnosis Comments SURGICAL PATHOLOGY Routine 08/20/2007 0:00 EDT documented in this encounter Results * SURGICAL PATHOLOGY (08/20/2007 0:00 EDT) Pathology Report: SURGICAL PATHOLOGY REPORT Reports generated via electronic interface contain original data; however they are lacking the format of the original report. Caution should be taken when reading/interpreti ng unformatted reports. Name: ? GEETHA OQUENDO ? Accession #: ? [id number] ? : ? 1965 (Age: 42) ??F ? Collect Date: ? 08/20/2007 ? Location: ? [facility] ? Receive Date: ? 08/20/2007 ? Provider: SANDRA COFFEY MD Copy to: ? Final Pathologic Diagnosis: A. ?Endocervix, curettage: 1. ?Fragments of benign endocervical glands and stroma. 2. ? Fragments of benign squamous mucosa with marked acute inflammation and reactive changes. 3. ? No evidence of dysplasia. See comment. B. ?Cervix, 3 o'clock, biopsies: 1. ?Fragments of benign squamous mucosa with no specific pathologic features. 2. ? No evidence of dysplasia. See comment. Comment: ? Deeper sections of specimen (A) and (B) have been reviewed. The patients previous ThinPrep Pap test ([id number]) has been reviewed. The atypical cells present on the ThinPrep specimen are rare shows similar morphologic features to the marked reactive changes present in the squamous epithelium of the endocervical curettings. No dysplasia was identified in the biopsy specimens. (Dr. Perez)/[facility] Document reviewed and electronically signed by: Kilo Perez MD Report ??Date: 08/22/2007 13:03 By the signature above, the attending physician certifies that he/she has personally conducted a gross and/or microscopic examination of the described specimens and rendered or confirmed the above diagnosis. Specimen(s) Received: A. ?ECC B. ? Cx bx 3:00 Clinical History: ? LSIL; [id number] Gross Description: ? Received in formalin labelled Ducker and ECC are multiple flanagan tissue fragments admixed with copious mucus which measure in aggregate 1.0 x 0.5 x 0.5 cm. ??The specimen is entirely submitted as (A). Received in formalin labelled Ducker and cervix bx is a 0.5 x 0.2 x 0.2 cm translucent tissue fragment. The specimen is entirely submitted as (B). ??(Dr. Pickard)/[facility] End of Report YUNG MILLER 08/20/2007 08/20/2007 15: 13 EDT Sandra Coffey MD PATHOLOGY ORDERABLES Final Resu lt [facility] [address] [place] [address] documented in this encounter Visit Diagnoses Not on filedocumented in this encounter Care Teams Hand Bindery Assembly Worker Relationship Specialty Start Date End Date Maye House, STRESS ANALYST [address] [place] [address] PCP - General 10/13/09 10/26/15 documented as of this encounter
--- OUTSIDE RECORDS SUMMARY | 2024-12-26 19:40 | XMS_ITS | Referral Summary ---
Author Organization Health system Address [address] [place] [address] Care Team Providers Care Machine Tender Name Role Phone HarshMaye sauer Inna PROCESSOR SOLID PROPELLANT Unavailable [phone] Dulce Funk Primary Care Provider [phone] Allergies No known active allergies Medications phentermine 15 mg capsule Take 15 mg by mouth every morning. Active omeprazole (PRILOSEC) 40 mg capsule Take 40 mg by mouth daily. Delayed release Active albuterol 90 mcg/actuation inhaler Inhale 180 mcg as directed every 4 hours. Inhale 1 puff as directed every 4-6 hours as needed for shortness of breath, wheezing. Active diclofenac sodium gel Apply 4 g topically 4 times daily as needed for Pain. 200 g 2 2 Active acetaminophen (TYLENOL) 500 mg tablet Take 2 Tablets by mouth every 6 hours as needed for Pain. 120 Tablet 1 2 Active Active Problems Problem Noted Date Diagnosed Date CRP elevated 06/15/2022 GERD (gastroesophageal reflux disease) 2 Persistent cough 06/15/2022 Pain in joint, multiple sites 06/15/2022 Preventative health care 06/15/2022 Obesity (BMI 35.0-39.9 without comorbidity) 05/27 Chronic low back pain 06/15/2022 Immunizations Name Administration Dates Next Due Tdap Vaccine =>7YO IM 03/06/2016 Social History Tobacco Use Types Packs/Day Years Used Date Smoking Tobacco: Never Interpersonal Safety Answer Date Record ed Physically Hurt Never 06/27/2020 Verbally Threaten Not on file 06/27/2020 Comments Unknown Sex and Gender Information Value Date Recorded Sex Assigned at Not on file Legal Sex Female 18:20 EST Gender Identity Female 06/23/2022 14:22 EDT Sexual Orientation Not on file Last Filed Vital Signs Vital Sign Reading Time Taken Comments Blood Pressure 122/87 06/29/2022 1431 EDT Pulse 72 06/29/2022 1431 EDT Temperature - - Respiratory Rate - - Oxygen Saturation - - Inhaled Oxygen Concentration - - Weight 106.1 kg (234 lb) 06/29/2022 1431 EDT Height 157.5 cm (5' 2.01) 06/29/2022 1431 EDT Body Mass Index 42.79 06/29/2022 1431 EDT Functional Status * Because of a physical, mental, or emotional condition, does this person have difficulty doing errands alone such as visiting a doctor's office or shopping? Answer Date of Assessment Author No 06/29/2022 14:35 EDT Mental Status * Because of a physical, mental, or emotional condition, does this person have serious difficulty concentrating, remembering, or making decisions? Answer Entry Date Author No 06/29/2022 14:35 EDT Plan of Treatment Not on file Insurance MEDICAID [facility] [place]ICA[place] Care Teams Machine Tender Relationship Specialty Start Date End Date Dulce Funk FNP [address], [place] [phone] PCP - General 07/10/22 Maye House, PROCESSOR SOLID PROPELLANT [address], [place] [phone] 10/27/15
--- OUTSIDE RECORDS SUMMARY | 2024-12-26 19:40 | XMS_ITS | Encounter Summary ---
Author Organization [facility] Address [address] [place] [address] Care Team Providers Care Project Development Engineer Name Role Phone Maye House BACK TENDER INSULATION BOARD Primary Care Provider [phone] Encounter Details Date Type Department Care Team (Late st Contact Info) Description 02/24/2005 Results Only [facility] - [place] conversion [address] [place] [address] Pippa Minaya, [facility] [address] [place] [address] [place] [address] Social History Tobacco Use Types Packs/Day [...] Procedure Name Priority Date/Time Associated Diagnosis Comments CYTOPATHOLOGY Routine 02/24/2005 0:00 EST documented in this encounter Results * CYTOPATHOLOGY (02/24/2005 0:00 EST) Pathology Report: CYTOPATHOLOGY REPORT Reports generated via electronic interface contain original data; however they are lacking the format of the original report. Caution should be taken when reading/interpreti ng unformatted reports. Name: ? DUCKER, GEETHA ? Accession #: ? [id number] : ? 1965 (Age: 39) ??F ?Collect Date: ? 02/24/2005 Location: ? [facility] ? Receive Date: ? 02/28/2005 Provider: ?PIPPA MINAYA FILE CLERK Copy to: ? Specimen/Source: ?ThinPrep Pap Test, Cervix/Endocervix Last Menstrual Period: ? 01/30/05 Other: ? HPVA - HPV testing requested if ASC-US on the current ThinPrep Pap test. ? SPECIMEN ADEQUACY ? Satisfactory for Evaluation - transformation zone component present GENERAL CATEGORIZATION ? Negative for Intraepithelial Lesion or Malignancy INTERPRETATION ? Reactive cellular changes associated with inflammation present (includes repair). ? Document reviewed and electronically signed by: ? Kati Mart MD PhD ? Report Date: ??03/07/2005 14:08 End of Report YUNG MILLER 02/24/2005 02/28/2005 us Pippa Minaya FILE CLERK PATHOLOGY ORDERABLES Final R esult YUNG MILLER [address] [place] [address] documented in this encounter Visit Diagnoses Not on filedocumented in this encounter Care Teams Project Development Engineer Relationship Specialty Start Date End Date Maye House [place] [address] PCP - General 10/13/09 10/26/15 documented as of this encounter
--- OUTSIDE RECORDS SUMMARY | 2024-12-26 19:40 | XMS_ITS | Encounter Summary ---
Author Organization [facility] Address [address] [place] [address] Care Team Providers Care Senior Analytic Consultant Name Role Phone Maye House LEATHER FINISHER Primary Care Provider [phone] Encounter Details Date Type Department Care Team (Late st Contact Info) Description 01/30/2003 Results Only [facility] - [place] conversion [address] [place] [address] Pippa Minaya, [facility] [address] [place] [address] [place] [address] Social History Tobacco Use Types [...] Priority Date/Time Associated Diagnosis Comments CYTOPATHOLOGY Routine 01/30/2003 0:00 EST documented in this encounter Results * CYTOPATHOLOGY (01/30/2003 0:00 EST) Pathology Report: CYTOPATHOLOGY REPORT Reports generated via electronic interface contain original data; however they are lacking the format of the original report. Caution should be taken when reading/interpreti ng unformatted reports. Name: ? DUCKER, GEETHA ? Accession #: ? [id number] : ? 1965 (Age: 37) ??F ?Collect Date: ? 01/30/2003 Location: ? [facility] ? Receive Date: ? 02/03/2003 Provider: ?PIPPA MINAYA ASTRONOMY INSTRUCTOR Copy to: ? Specimen/Source: ?ThinPrep Pap Test, Cervix/Endocervix Last Menstrual Period: ? 01/19/03 ? SPECIMEN ADEQUACY ? Satisfactory for Evaluation - transformation zone component present GENERAL CATEGORIZATION ? Negative for Intraepithelial Lesion or Malignancy ? Document reviewed and electronically signed by: ? LEBRON Nieto(ASCP) ? Report Date: ??02/04/2003 09:52 End of Report YUNG MILLER 01/30/2003 02/03/2003 Pippa Minaya ASTRONOMY INSTRUCTOR PATHOLOGY ORDERABLES Final R esult [facility] [address] [place] [address] documented in this encounter Visit Diagnoses Not on filedocumented in this encounter Care Teams Senior Analytic Consultant Relationship Specialty Start Date End Date Maye House, TED [address] [place] [address] [place] [address] PCP - General 10/13/09 10/26/15 documented as of this encounter
--- OUTSIDE RECORDS SUMMARY | 2024-12-26 19:40 | XMS_ITS | Encounter Summary ---
Author Organization [facility] Address [address] [place] [address] Care Team Providers Care Medical Clinic Manager Name Role Phone Maye House CLUBHOUSE MANAGER Primary Care Provider [phone] Encounter Details Date Type Department Care Team (Late st Contact Info) Description 03/05/2001 Results Only [facility] - Maple conversion [address] [place] [address] Pippa Minaya, [facility] [address] [place] [address] Social History Tobacco Use Types Packs/Day [...] Priority Date/Time Associated Diagnosis Comments CYTOPATHOLOGY Routine 03/05/2001 0:00 EDT documented in this encounter Results * CYTOPATHOLOGY (03/05/2001 0:00 EDT) Pathology Report: CYTOPATHOLOGY REPORT Reports generated via electronic interface contain original data; however they are lacking the format of the original report. Caution should be taken when reading/interpreti ng unformatted reports. Name: ? GEETHA OQUENDO ? Accession #: ? [id number] : ? 1965 (Age: 35) ??F ?Collect Date: ? 03/05/2001 Location: ? [facility] ? Receive Date: ? 03/07/2001 Provider: ?PIPPA MINAYA FIRST AID TRAINER Copy to: ? Specimen/Source: ?ThinPrep Pap Test, Cervix/Endocervix Last Menstrual Period: ? 02/24/01 ? SPECIMEN ADEQUACY ? Satisfactory for evaluation. GENERAL CATEGORIZATION ? Within Normal Limits ? Document reviewed and electronically signed by: ? Savita Avitia, SCT(ASCP) ? Report Date: ??03/08/2001 09:39 End of Report [facility] 03/05/2001 03/07/2001 Pippa Minaya FIRST AID TRAINER PATHOLOGY ORDERABLES Final R esult [facility] [address] [place] [address] documented in this encounter Visit Diagnoses Not on filedocumented in this encounter Care Teams Medical Clinic Manager Relationship Specialty Start Date End Date Maye House, CLUBHOUSE MANAGER [address] [place] [address] [place] [address] PCP - General 10/13/09 10/26/15 documented as of this encounter
--- OUTSIDE RECORDS SUMMARY | 2024-12-26 19:40 | XMS_ITS | Encounter Summary ---
Author Organization [facility] Address [address] [place] [address] Care Team Providers Care Loans Officer Name Role Phone Maye House EXPERIENCE DESIGNER Primary Care Provider Unknown, Provider Primary Care Provider Unava ilable Maye House EXPERIENCE DESIGNER Unavailable [phone] Encounter Details Date Type Department Care Team (Late st Contact Info) Description 10/26/2015 Results Only [facility] [phone] Pippa Minaya, [address] [address] Social History Tobacco Use Types Packs/Day [...] Diagnosis Comments PAP TEST- RESULT ONLY Routine 10/26/2015 0:00 EST documented in this encounter Results * PAP TEST- RESULT ONLY (10/26/2015 0:00 EST) Pathology Report: CYTOPATHOLOGY REPORT Reports generated via electronic interface contain original data; however they are lacking the format of the original report. Caution should be taken when reading/interpret ing unformatted reports. Name: ? GEETHA LEA WRN ? Accession #: ? [id number] ? : ? 1965 (Age: 50) ??F ?Collect Date: ? 10/26/2015 ? Location: ? [facility] ? Receive Date: ? 10/27/2015 ? Provider: PIPPA MINAYA MANUFACTURING CONTROLS ENGINEER Copy to: ? Final Report SPECIMEN ADEQUACY ? Satisfactory for Evaluation - transformation zone component present GENERAL CATEGORIZATION ? Epithelial Cell Abnormality INTERPRETATION ? Squamous Cell Abnormality - Atypical squamous cells, undetermined significance (ASC-US). Shift in bre present suggestive of bacterial vaginosis. EDUCATIONAL NOTES/RECOMMENDAT IONS ? [facility] recommends following ASCCP's 2012 Updated Consensus Guidelines for the Management of Abnormal Cervical Cancer Screening Tests and Cancer Precursors (JLGTD, 2013; 17(5):S1-S27). ??Consensus guidelines are available online at www.asccp.org. Last Menstrual Period: 10/20/15 Specimen/Source: ??Pap Test, Cervix/Endocervix , ThinPrep Imaging System with manual evaluation Document reviewed and electronically signed by: ? JUAN FRANCISCO DOWNING MD ? Report ??Date: 11/01/2015 14:36 HPV with Pap Test ? Date Ordered: ? 11/01/2015 ? Status: ?? Signed Out ?Date Complete: ? 11/02/2015 ? By: ??System Interface ? Date Reported: ? 11/02/2015 ? Interpretation RESULT: Negative for HPV. No E6 or E7 mRNA is detected from HPV types 16,18,31,33,35, 39,45,51,52,56,58 ,59,66, and 68 by topographical engineer mediated amplification. Comments Document reviewed and electronically signed by: ? System Interface ? Report date: 11/02/2015 By the signature above, the attending physician certifies that he/she has personally conducted a gross and/or microscopic examination of the described specimens and rendered or confirmed the above diagnosis. End of Report [facility] 10/26/2015 10/27/2015 us Pippa Minaya MANUFACTURING CONTROLS ENGINEER PATHOLOGY ORDERABLES Final R esult Performing Organization Address City/State/[facility] Co de Phone Number [facility] [address] [place] [address] documented in this encounter Visit Diagnoses Not on filedocumented in this encounter Care Teams Loans Officer Relationship Specialty Start Date End Date Maye House EXPERIENCE DESIGNER [address] [place] [address] PCP - General 10/13/09 10/26/15 Unknown, Provider, [address] [place] [address] PCP - General 10/27/15 11/03/15 Maye House EXPERIENCE DESIGNER [address] [place] [address] 10/27/15 documented as of this encounter
--- OUTSIDE RECORDS SUMMARY | 2024-12-26 19:40 | XMS_ITS | Encounter Summary ---
Author Organization [facility] Address [address] [place] [address] Care Team Providers Care Card Cleaner Name Role Phone Maye House CLIENT LIAISON Unavailable [phone] Maye House CLIENT LIAISON Primary Care Provider [phone] Dulce FunkP Primary Care Provider Encounter Details Date Type Department Care Team (Late st Contact Info) Description 07/02/2021 Lab Requisition [facility] Pathology & Laboratory Medicine - [facility] [address] [place] [address] Outr Resulting Lab, Provider Social History Tobacco Use Types Packs/Day Years Used Date Smoking Tobacco: Never Assessed Interpersonal Safety Answer Date Record ed Physically [...] Procedure Name Priority Date/Time Associated Diagnosis Comments ZZCOVID-19 TEST [facility] PCR Today 07/01/2021 15:45 EDT COVID-19 TESTING Routine 07/01/2021 15:4 5 EDT documented in this encounter Results * COVID-19 TEST [facility] PCR (07/01/2021 15:45 EDT) Swab ENTIRE NASOPHARYNX / Unknown 07/01/2021 15:45 EDT 07/02/2021 21:32 EDT us Provider Outr Resulting Lab MICROBIOLOGY - GENER AL ORDERABLES Final Result Performing Organization Address [facility] Co de Phone Number [facility] [address] [place] [address] * COVID-19 TESTING (07/01/2021 15:45 EDT) COVID-19 rt-PCR Result Negative Negative 07/03/2021 10:58 EDT [facility] Comment: This test has not been FDA cleared or approved. This test has been authorized by FDA under an EUA for use by authorized laboratories. This test has been authorized only for detection of nucleic acid from 2019-nCoV, not for any other viruses or pathogens. This test is only authorized for the duration of the declaration that circumstances exist justifying the authorization of emergency use of in vitro diagnostic tests for detection and/or diagnosis of 2019-nCoV under section 564(b)(1) of Act, 21 U.S.C ?? 360bbb-3(b) (1), unless the authorization is terminated or revoked sooner. Negative results do not preclude 2019-nCoV infection and should not be used as the sole basis for treatment or other patient management decisions. Negative results must be combined with clinical observations, patient history, and epidemiological information. Performed on the Geodruidher Fusion instrument Performing Lab [place] [facility] 07/03/2021 10:58 EDT [facility] Swab 07/01/2021 15:4 5 EDT 07/02/2021 21:32 EDT us Provider Outr Resulting Lab MICROBIOLOGY - GENER AL ORDERABLES Final Result Performing Organization Address City/Special Care Hospital/ZIP Co de Phone Number [facility] [address] [place] [address] documented in this encounter Visit Diagnoses Not on filedocumented in this encounter Care Teams Card Cleaner Relationship Specialty Start Date End Date Maye House NP [address] [place] [address] PCP - General 11/04/15 07/09/22 Dulce Funk FNP [address] [place] [address] PCP - General 07/10/22 Maye House NP [address] [place] [address] 10/27/15 documented as of this encounter
--- OUTSIDE RECORDS SUMMARY | 2024-12-26 19:40 | XMS_ITS | Encounter Summary ---
Author Organization [facility] Address [facility] [place] [address] Care Team Providers Care Automatic Outsole Cutter Name Role Phone Avis Lockett APRN Primary Care Provider [phone] Reason for Visit * Reason Comments Follow-up Skin Check * Consultation (Routine) - Closed Specialty Diagnoses / Procedures Referred By Damon t Referred To Contact Dermatology Diagnoses Personal history of other malignant neoplasm of skin Avis Lockett APRN [address] [place] [address] [place] [address] Errol Cevallos MD [address] [place] [address], [facility] [place] [address] Referral ID Status Reason Start Date Expiration Date Visits Re quested Visits Authorized [id number] Closed 03/17/2024 03/17/2025 1 1 Encounter Details Date Type Department Care Team (Late st Contact Info) Description 05/01/2024 3:30 PM EDT Office Visit Dermatology at [address] [address] Errol Cevallos MD [address] [place] [address], [facility] [place], [place] [id number] History of basal cell carcinoma Social History Tobacco Use Types Packs/Day Years Used Date Smoking Tobacco: Never Alcohol Use Standard Drinks/Week Comments Never 0 (1 standard drink = 0.6 oz pur e alcohol) [facility] Inpatient Questions Answer Date Recorded Does [...] as of this encounter Progress Notes * Errol Cevallos MD - 05/01/2024 3:30 PM EDT PROBLEM: 1. Skin lesion concern. 2. History of past basal cell carcinoma, left dorsal forearm, removed by Dr. Zamorano at [facility]. Geetha follows up with last being seen in 2016. She is concerned about some dark spots on her back and face. 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 Physical examination reveals a pleasant 59-year-old woman who has 2 areas of concern on her back. As noted the spot is being red and stand up quite a bit against her fair freckled skin. She is a veryfair complected fair skinned woman with blue eyes and freckles and very fair hair. Otherwise examination of the face the chest the back the hands arms and forearms is benign. There is no evidence of recurrence of the left dorsal forearm BCC excision site performed by Dr. Zamorano at [facility] some years ago. Assessment plan: SCC versus BCCA's site A upper central back, site B left mid 1. After obtaining informed consent sites were anesthetized and removed with shave C&D 2. After curettage, each site measured 1 cm in diameter 3. Wound care instructions and supplies given 4. Return to clinic as needed CC: Avis Lockett APRN documented in this encounter Plan of Treatment Not on file documented as of this encounter Visit Diagnoses Diagnosis History of basal cell carcinoma Personal history of other malignant neoplasm of skin documented in this encounter Care Teams Automatic Outsole Cutter Relationship Specialty Start Date End Date [place] [address] PCP - General Family Medicine 05/01/24 documented as of this encounter
--- OUTSIDE RECORDS SUMMARY | 2024-12-26 19:40 | XMS_ITS | Clinical Summary ---
Author Organization [facility] Address [address] [place] [address] Care Team Providers Care Crane Service Technician Name Role Phone HarshMaye sauer Inna MARKETING ASSISTANT Unavailable [phone] Dulce Funk Primary Care Provider [phone] Allergies No known active allergies Medications phentermine [...] Next Due Tdap Vaccine =>7YO IM 03/06/2016 Medical History Medical History Date Comments History of blood transfusion Social History Tobacco Use Types Packs/Day Years Used Date Smoking Tobacco: Never Interpersonal Safety Answer Date Record ed Physically Hurt Never 06/27/2020 Verbally Threaten Not on file 06/27/2020 Comments Unknown Sex and Gender Information Value Date Recorded Sex Assigned at Not on file Legal Sex Female 18:20 EST Gender Identity Female 06/23/2022 14:22 EDT Sexual Orientation Not on file Obstetrics History Last Filed Vital Signs Vital Sign Reading Time Taken Comments Blood Pressure 122/87 06/29/2022 1431 EDT Pulse 72 06/29/2022 1431 EDT Temperature - - Respiratory Rate - - Oxygen Saturation - - Inhaled Oxygen Concentration - - Weight 106.1 kg (234 lb) 06/29/2022 1431 EDT Height 157.5 cm (5' 2.01) 06/29/2022 1431 EDT Body Mass Index 42.79 06/29/2022 1431 EDT Plan of Treatment Health Maintenance Due Date Last Done Comments Hepatitis C Screen 1965 Hepatitis B Vaccine (1 of 3 - 19+ 3-dose series) 03/09 COVID-19 Vaccine (2023- season) 2024 Insurance [place] Care Teams Crane Service Technician Relationship Specialty Start Date End Date Dulce Funk FNP [address], [place] [address] PCP - General 07/10/22 Maye House, MARKETING ASSISTANT [address], [place] [id number] 10/27/15
--- OUTSIDE RECORDS SUMMARY | 2024-12-26 19:40 | XMS_ITS | Encounter Summary ---
Author Organization [facility] Address [address] [place] [address] Care Team Providers Care Butt Presser Name Role Phone Maye House MEAT SOAKER Unavailable [phone] Dulce Funk Primary Care Provider Reason for Visit * Reason Onset Date Comments Results 07/10/2022 Encounter Details Date Type Department Care Team (Late st Contact Info) Description 07/10/2022 Telephone [facility] Rheumatology & Immunology - [facility] [address] [place], [place] [id number] Nish Silvestre MBBS [address] [place] [address], [address] [place] [address] Results Social History Tobacco Use Types Packs/Day Years [...] 06/29/2022 14:35 EDT documented in this encounter Miscellaneous Notes * Telephone Encounter - Nish Silvestre MBBS - 07/10/2022 1033 EDT Results note: - (07/06/22) Labs: CRP 0.64 (ULN 0.3). CBC, CMP and ESR wnl. CCP negative. Impression: - Elevated CRP. - Awaiting imaging. - Continue as per 06/29/22 documented in this encounter Plan of Treatment Not on file documented as of this encounter Visit Diagnoses Not on filedocumented in this encounter Care Teams Butt Presser Relationship Specialty Start Date End Date Dulce Funk FNP [address] [place] [address] PCP - General 07/10/22 Maye House NP [address] [place] [address] 10/27/15 documented as of this encounter
--- OUTSIDE RECORDS SUMMARY | 2024-12-26 19:40 | XMS_ITS | Clinical Summary ---
Author Organization [facility] Address [facility] [place] [address] Care Team Providers Care Tombstone Polisher Name Role Phone Avis Lockett APRN Primary Care Provider [phone] Allergies No known active allergies Medications Medication Sig Dispensed Refills Start Date End Date Status albuteroL 90 mcg/actuation inhaler (HFA) Inhale 180 mcg into the lungs Every 4 hours. Active buPROPion SR (Wellbutrin SR) 100 mg SR 12 hr tablet TAKE ONE TABLET BY MOUTH EVERY MORNING FOR FOOD CRAVINGS Active naltrexone (Depade) 50 mg tablet TAKE ONE-HALF TABLET BY MOUTH IN THE MORNING FOR FOOD CRAVINGS Active phentermine (T-Diet) 30 mg capsule Take 1 capsule by mouth Daily at Noon. 01/24/2024 Active rosuvastatin (Crestor) 10 mg tablet TAKE ONE TABLET BY MOUTH EVERY EVENING FOR HIGH CHOLESTEROL Active Active Problems Problem Noted Date Diagnosed Date Chronic low back pain 06/15/2022 CRP elevated 06/15/2022 GERD (gastroesophageal reflux disease) Obesity (BMI 35.0-39.9 without comorbidity) 05/27 Pain in joint, multiple sites 06/15/2022 Persistent cough 06/15/2022 Actinic keratosis 07/14/2016 Basal cell carcinoma 07/14/2016 History of SCC (squamous cell carcinoma) of skin 07/14/2016 Social History Tobacco Use Types Packs/Day Years Used Date Smoking Tobacco: Never Tobacco Cessation:Counseling Given: Not Answered Alcohol Use Standard Drinks/Week Comments Never 0 (1 standard drink = 0.6 oz pur e alcohol) [facility] Inpatient Questions Answer Date Recorded Does Anyone [...] on file Sexual Orientation Not on file Last Filed Vital Signs Vital Sign Reading Time Taken Comments Blood Pressure 153/88 09/04/2023 10:45 AM EDT Pulse 70 09/04/2023 11:00 AM EDT Temperature 36 ??C (96.8 ??F) 09/04/2023 10:10 AM EDT Respiratory Rate 18 09/04/2023 10:15 AM EDT Oxygen Saturation 100% 09/04/2023 11:00 AM EDT Inhaled Oxygen Concentration - - Weight 91.6 kg (202 lb) 09/04/2023 6:29 AM EDT Height 160 cm (5' 3) 09/04/2023 6:29 AM EDT Body Mass Index 35.78 09/04/2023 6:29 AM EDT Plan of Treatment Health Maintenance Due Date Last Done Comments CT Colonography 1965 Colonoscopy 1965 Colorectal Cancer Screening 1965 FIT DNA 1965 FIT 1965 Sigmoidoscopy (10 year) with FIT yearly 1965 Sigmoidoscopy 1965 HIV screen 1984 Hepatitis C Screening 1984 Hepatitis B vaccine (0-59 yrs) (1) 1985 Tetanus/Diphtheria/Pertussis Vaccines (1 - Tdap) 03/09 HPV test 1996 PAP Smear 1996 Breast Cancer Share Decision Needed 2006 Breast Cancer screening 2006 Diabetes Screening (HgbA1C or Glucose) 2006 Pneumoccocal Vaccine: 50+ (1 of 1 - PCV) 2016 Zoster vaccine (1 of 2) 2016 Advance Directive 2021 Covid-19 Vaccine (1 - 2023- season) 2024 Influenza (Flu) vaccine (1 o f 1 - Influenza standard series) 07/27/2024 Care Teams Tombstone Polisher Relationship Specialty Start Date End Date Avis Lockett, FELT HAT FLANGING OPERATOR [facility] [place] [address] PCP - General Family Medicine 05/01/24
--- OUTSIDE RECORDS SUMMARY | 2024-12-26 19:40 | XMS_ITS | Encounter Summary ---
Author Organization [facility] Address [address] [place] [address] Care Team Providers Care Cashier Ticket Selling Name Role Phone Maye House CAM MAKER Primary Care Provider [phone] Encounter Details Date Type Department Care Team (Late st Contact Info) Description 07/01/2007 Results Only [facility] - Maple conversion [address] [place] [address] Pippa Minaya, [facility] [address] [place] [address] [place] [address] Social History Tobacco Use Types [...] Priority Date/Time Associated Diagnosis Comments CYTOPATHOLOGY Routine 07/01/2007 0:00 EDT documented in this encounter Results * CYTOPATHOLOGY (07/01/2007 0:00 EDT) Pathology Report: CYTOPATHOLOGY REPORT Reports generated via electronic interface contain original data; however they are lacking the format of the original report. Caution should be taken when reading/interpreti ng unformatted reports. Name: ? GEETHA OQUENDO ? Accession #: ? [id number] : ? 1965 (Age: 42) ??F ?Collect Date: ? 07/01/2007 Location: ? [facility] ? Receive Date: ? 07/02/2007 Provider: ?PIPPA MINAYA SEARCH ENGINEER Copy to: ? Specimen/Source: ?ThinPrep Pap Test, Cervix/Endocervix, processed on Real Time Translation ThinPrep Imaging System, with manual evaluation Last Menstrual Period: ? 06/24/07 Other: ? HPVA - HPV testing requested if ASC-US on the current ThinPrep Pap test. ? SPECIMEN ADEQUACY ? Satisfactory for Evaluation - transformation zone component present GENERAL CATEGORIZATION ? Epithelial Cell Abnormality INTERPRETATION ? Squamous Cell Abnormality - Low grade squamous intraepithelial lesion (LSIL). EDUCATIONAL NOTES/RECOMMENDATI ONS ? [facility] recommends following the 2001 Consensus Guidelines for the Management of Women with Cervical Cytological Abnormalities (JOHANA,2002;287:212 0-9). Management algorithms have been distributed by [facility] and are available online at www.ASCCP.org. ? Document reviewed and electronically signed by: ? NITISH SORIANO MD [facility] ? Report Date: ??07/08/2007 16:22 End of Report YUNG MILLER 07/01/2007 07/02/2007 us Pippa Minaya SEARCH ENGINEER PATHOLOGY ORDERABLES Final R esult YUNG MILLER [address] [place] [address] documented in this encounter Visit Diagnoses Not on filedocumented in this encounter Care Teams Cashier Ticket Selling Relationship Specialty Start Date End Date Maye House, CAM MAKER [address] [place] [address] PCP - General 10/13/09 10/26/15 documented as of this encounter
--- OUTSIDE RECORDS SUMMARY | 2024-12-26 19:40 | XMS_ITS | Encounter Summary ---
Author Organization [facility] Address [address] [place] [address] Care Team Providers Care Garden Machinery Mechanic Name Role Phone Maye House BIRTH ATTENDANT Unavailable [phone] Maye House BIRTH ATTENDANT Primary Care Provider [phone] Dulce Funk MIXED ANIMAL VETERINARIAN Primary Care Provider [phone] Encounter Details Date Type Department Care Team (Late st Contact Info) Description 12/29/2019 Lab Requisition [facility] Pathology & Laboratory Medicine - [facility] [address] [place] [address] Pippa Minaya, [address] [place] [phone] Encounter for other general examination Social History Tobacco Use Types Packs/Day Years [...] Name Priority Date/Time Associated Diagnosis Comments PAP TEST Today 12/29/2019 11:00 EST Encounter for other general examination HPV DNA DETECTION WITH GENOTYPING, PCR Today 12/29/2019 11:00 EST Encounter for other general examination documented in this encounter Results * HUMAN PAPILLOMAVIRUS (HPV) DETECTION-HIGH RISK TYPES (12/29/2019 11:00 EST) HPV other High Risk types, PCR Negative Negative 01/07/2020 7:40 [facility] Comment:No E6 or E7 mRNA is detected from HPV types 16,18,31,33,35,39,45,51,52,56,58,59,66, and 68 by funeral professional mediated amplification. Papanicolaou smear specimen (specimen) CERVIX UTERI STRUCTURE / Unknown 12/29/2019 11:00 EST 01/05/2020 16:15 EST Pippa Minaya MIXED ANIMAL VETERINARIAN MICROBIOLOGY - GENERAL ORDER ELIAS Final Result [facility] [address] [place] [address] * PAP TEST (12/29/2019 11:00 EST) Specimens A. Cervix and/or Endocervix, , ThinPrep Imaging System with Manual Evaluation 01/07/2020 7:40 [facility] Specimen Adequacy Satisfactory for Evaluation - transformation zone component present 01/07/2020 7:40 [facility] General Categorization Negative for intraepithelial lesion or malignancy 01/07/2020 7:40 [facility] Descriptive Diagnosis Reactive cellular changes associated with inflammation present (includes repair). 01/07/2020 7:40 [facility] Attestation By the signature below, the attending physician certifies that they have personally conducted a gross and/or microscopic examination of the described specimens and rendered or confirmed the above diagnosis. 01/07/2020 7:40 [facility] at 0740 Clinical History NONE 01/07/20 20 7:40 [facility] HPV The result for the Human Papillomavirus (HPV) Detection-High Risk Types is Negative. No E6 or E7 mRNA is detected from HPV types 16,18,31,33,35,39 ,45,51,52,56,58,5 9,66, and 68 by funeral professional mediated amplification.Jacqui galicia was performed on specimen [id number] and was resulted on 01/07/2020 0711 EST by LISA, LAB INSTRUMENT RESULTS IN 01/07/2020 7:40 EST [facility] Scanned Images 01/07/2020 7:40 EST [facility] Papanicolaou smear specimen (specimen) CERVIX UTERI STRUCTURE / Unknown 12/29/2019 11:00 EST 12/29/2019 16:10 EST Pippa Minaya MIXED ANIMAL VETERINARIAN PATHOLOGY ORDERABLES Final R esult [facility] [address] [place] [address] documented in this encounter Visit Diagnoses Diagnosis Encounter for other general examination documented in this encounter Care Teams Garden Machinery Mechanic Relationship Specialty Start Date End Date Maye House, BIRTH ATTENDANT [address] [place] [address] PCP - General 11/04/15 07/09/22 Dulce Funk FNP [address] [place] [address] PCP - General 07/10/22 Maye House, BIRTH ATTENDANT [address] [place] [address] 10/27/15 documented as of this encounter
--- OUTSIDE RECORDS SUMMARY | 2024-12-26 19:40 | XMS_ITS | Encounter Summary ---
Author Organization [facility] Address [address] [place] [address] Care Team Providers Care Layout Man Name Role Phone Maye House TRIMMER AND REINFORCER Primary Care Provider [phone] Encounter Details Date Type Department Care Team (Late st Contact Info) Description 01/27/2004 Results Only [facility] [address] [place] [address] Pippa Minaya, [facility] [address] [place] [address] [place] [phone] Social History Tobacco Use Types Packs/Day Years [...] Priority Date/Time Associated Diagnosis Comments CYTOPATHOLOGY Routine 01/27/2004 0:00 EST documented in this encounter Results * CYTOPATHOLOGY (01/27/2004 0:00 EST) Pathology Report: CYTOPATHOLOGY REPORT Reports generated via electronic interface contain original data; however they are lacking the format of the original report. Caution should be taken when reading/interpreti ng unformatted reports. Name: ? DUCKER, GEETHA ? Accession #: ? [id number] : ? 1965 (Age: 38) ??F ?Collect Date: ? 01/27/2004 Location: ? [facility] ? Receive Date: ? 01/29/2004 Provider: ?PIPPA MINAYA MAILROOM COORDINATOR Copy to: ? Specimen/Source: ?ThinPrep Pap Test, Cervix/Endocervix Last Menstrual Period: ? Hormonal/Contracep tive Status: ? Depo-Provera ? SPECIMEN ADEQUACY ? Satisfactory for Evaluation - transformation zone component present - scant squamous epithelial component secondary to excessive blood GENERAL CATEGORIZATION ? Negative for Intraepithelial Lesion or Malignancy ? Document reviewed and electronically signed by: ? Savita Avitia, SCT(ASCP) ? Report Date: ??02/03/2004 10:51 End of Report [facility] 01/27/2004 01/29/2004 us Pippa Minaya MAILROOM COORDINATOR PATHOLOGY ORDERABLES Final R esult [facility] [address] [place] [address] documented in this encounter Visit Diagnoses Not on filedocumented in this encounter Care Teams Layout Man Relationship Specialty Start Date End Date Maye House NP [address] [place] [address] PCP - General 10/13/09 10/26/15 documented as of this encounter
--- OUTSIDE RECORDS SUMMARY | 2024-12-26 19:40 | XMS_ITS | Encounter Summary ---
Author Organization [facility] Address [facility] [place] [address] Care Team Providers Care Inspector And Mender Name Role Phone Avis Lockett APRN Primary Care Provider [phone] Encounter Details Date Type Department Care Team (Latest Contact Info) Description 05/01/2024 Travel Social History Tobacco Use Types Packs/Day Years Used Date Smoking Tobacco: Never Alcohol Use Standard Drinks/Week Comments Never 0 (1 standard drink = 0.6 oz pur e alcohol) IPV Inpatient Questions Answer Date Recorded Does [...] on filedocumented in this encounter Care Teams Inspector And Mender Relationship Specialty Start Date End Date [place] [address] PCP - General Family Medicine 05/01/24 documented as of this encounter
--- OUTSIDE RECORDS SUMMARY | 2024-12-26 19:40 | XMS_ITS | Data Portability ---
Author Organization [place] [facility] Address [address] [place] [address] Assessment Encounter Date Assessment Date Assessment LastModified by Organization Details LastModified Time 10/14/2024 10/14/2024 This appointment was conducted via telephone. A total of 10 minutes was spent at this visit of which at least 50% was spent in direct patient contact. Consent was given to conduct this encounter using appropriate technology. Not available 10/14/2024 12:33:27 Plan of Treatment Reminders Order Date Submit Date Provider Last Modified By Organization Details Last Modified Time Details Appointments Follow Up 2024 01:00P M JILL MCKEON Not available Not available Not available Follow Up 2024 01:30P Olga MCKEON Not available Not available Not available Lab None recorded. Referral None recorded. Procedures None recorded. Surgeries None recorded. Imaging None recorded. Medication Orders bupropion HCl SR 100 mg tablet,12 hr sustained -release 2023 024 SHEILA [facility], [address] [place], [address], 09/19/2024 14:47:58 naltrexon e 50 mg tablet 2023 024 SHEILA [facility], [address] [place], [address], 06/20/2024 14:10:25 naltrexon e 50 mg tablet 2023 024 amattkenyatta [facility], [address] [place], [address], 12/26/2024 13:25:25 bupropion HCl SR 150 mg tablet,12 hr sustained -release 2023 024 amattkenyatta [facility], [address] [place], [address], 12/26/2024 13:25:34 phentermi ne 37.5 mg capsule 2023 024 SHEILA [facility], [address] [place], [address], 10/14/2024 12:25:08 Patient TargetsNo targets recorded. Patient Instructions Encounter Date Encounter Id Patient Instructions Last Modified By Organization Details Last Modified Time 06/20/2024 [id number] increase bupropion sr to 200mg in morning. continue 100mg bupropion at night. continue naltrexone 25mg twice daily. call office in a month. if no weight loss/not effective, will think about adding phentermine. [email or web address] Not available 06/26/2024 01:22:40 09/19/2024 [id number] Nice to see you today! let's get you back on bupropion but at higher dose at 150mg SR TWICE daily and the naltrexone 1/2 tablet TWICE daily (25mg twice daily) call if any refills needed, 1 month of each with 2 refills on each sent to pharmacy today we can check your labs at next visit for cholesterol and anything else we may want to see. normal in February. Right hip/groin pain: I think this is your hip flexors on right side, anterior groin. stretches, PT will be most helpful. if you get no relief with anterior hip flexor exercises/stretch es online, call me for PT referral. Not available 09/19/2024 14:58:42 Reason for Referral None Reported. Results Created Date Observation Date Name Description Value Unit Range Abnormal Flag Note LastModifiedBy Organization Detail LastModifiedTime 08/11/2002/02/2020 ritika BARKER No observ ation record ed. [email or web address] Not Available 08/11 02:31:26 08/11/20 24 02/27/2022 MAMMritika Ventura No observ ation record ed. [email or web address] Not Available 08/11 02:31:27 08/11/20 24 03/08/2022 MAMMritika Ventura No observ ation record ed. [email or web address] Not Available 08/11 02:31:28 08/11/20 24 08/06/2023 MAMMO ritika No observ ation record ed. [email or web address] Not Available 08/11 02:31:29 Result Notes None recorded. Problems Name Problem SNOMED Code Status Onset Date Resolution Date Notes Provider Name and Address Organization Details Recorded Time Vitamin D below referenc e range 885474847 Active [address], [place], [address] , [facility] 5 13:47:27 Insomnia 030985333 Active [address], [facility] [address] , [facility] 5 13:57:08 Low back pain 451152914 Active 201710/21/20 18 - Comments only - Dulce Funk APRN - Likely related to reported mild scoliosi s and uneven leg lengths. Referral to PT. Problem Code: M54.5; Problem Code Type: ICD-10; [address], [place], [address] , [facility] 4 12:35:33 Counseli lg Completed 201711/04/2018 10/21/20 18 - Comments only - Dulce Funk APRN - Receives MANAGER VOICE care at , will schedule pap. Is consider ing colonosc opy, not ready to schedule at this time. UTD with Tdap, declines flu vaccine. Problem Code: Z71.89; Problem Code Type: ICD-10; Not Available [facility] 3 05:31:10 Body mass index 30+ - obesity 399460238 Active 2017 Problem Code: Z68.33; Problem Code Type: ICD-10; [address], [place], [address] , [facility] 4 12:35:21 Cough 13499502 Completed 201901/14/2020 Problem Code: R05; Problem Code Type: ICD-10; Not Available [facility] 3 05:31:10 Joint pain 51111514 Active 202109/28/20 22 - Comments only - Dulce Funk APRN - Some decrease in pain in wt bearing joints. Still pain in R shoulder , pt declines referral to PT or ortho at this time. Problem Code: M25.50; Problem Code Type: ICD-10; [address], [place], [address] , [facility] 4 12:35:26 Gastroes ophageal reflux disease without esophagi tis 735849979 Completed 202103/14/2024 09/28/20 22 - Improved - Dulce Funk APRN - Stopped omeprazo le, asymptom atic at present. Problem Code: K21.9; Problem Code Type: ICD-10; [address], [place], [address] , [facility] 4 12:34:27 Hypertro phy of breast 783814585 Completed 202103/14/2024 12/29/19 23 - Comments only - Dulce Funk APRN - Pt would like to pursue breast reductio n surgery. Reports chronic discomfo rt in upper back and neck. Referral to PT. Will refer to [facility] reconstr uctive surgery, as indicate d. Problem Code: N62; Problem Code Type: ICD-10; [address], [place], [address] , [facility] 4 12:33:46 Pain in thoracic spine 759415499 Active 202212/29/19 23 - Comments only - Dulce [place]uk JACQUARD FIXER - Pt attribut es to macromas tia. See above. Problem Code: M54.9; Problem Code Type: ICD-10; [address], [place], [address] , [facility] 4 12:35:37 History of polyp of colon 825012670 Active 2022 Problem Code: Z86.010; Problem Code Type: ICD-10; last colonosc opy at age 58 [address], [place], [address] , [facility] 4 12:35:24 Acute pharyngi tis 857111599 Completed 201806/24/2019 Problem Code: J02.9; Problem Code Type: ICD-10; Not Available [facility] 3 05:31:11 C-reacti ve protein above referenc e range 06536581557 9104 Completed 202107/25/2022 Problem Code: R79.82; Problem Code Type: ICD-10; Not Available [facility] 3 05:31:11 Acute frontal sinusiti s 84574596 Completed 201806/24/2019 Problem Code: J01.10; Problem Code Type: ICD-10; Not Available [facility] 3 05:31:11 Exposure to communic able disease Completed 202004/13/2022 Problem Code: Z20.828; Problem Code Type: ICD-10; Not Available [facility] 3 05:31:11 Endocrin e/metabo lic screenin g Completed 201510/21/2018 Problem Code: Z13.29; Problem Code Type: ICD-10; Not Available [facility] 3 05:31:12 Screenin g for malignan t neoplasm of breast Completed 202004/13/2022 Problem Code: Z12.39; Problem Code Type: ICD-10; Not Available [facility] 3 05:31:12 Plantar fascial fibromat osis 87170692 Completed 201804/13/2022 Problem Code: M72.2; Problem Code Type: ICD-10; Not Available [facility] 3 05:31:12 Acute sinusiti s 80288495 Completed 201904/13/2022 Problem Code: J01.90; Problem Code Type: ICD-10; Not Available [facility] 3 05:31:12 Chronic cough 38503389 Completed 202107/25/2022 Problem Code: R05.3; Problem Code Type: ICD-10; Not Available [facility] 3 05:31:12 Obesity 601005989 Completed 201708/22/2023 09/28/20 22 - Improved - Dulce Stov[place]uk JACQUARD FIXER - Wt continue s to decline with use of phenterm ine, diet changes and regular exercise . Will continue for three more months. Problem Code: E66.9; Problem Code Type: ICD-10; Not Available [facility] 3 05:31:12 Hyperlip idemia screenin g Completed 201510/21/2018 Problem Code: Z13.220; Problem Code Type: ICD-10; Not Available [facility] 3 05:31:12 Disorder of skin and/or subcutan eous tissue 44448132 Completed 201510/21/2018 Problem Code: L98.8; Problem Code Type: ICD-10; Not Available [facility] 3 05:31:12 Fatigue 87903068 Active [address], [place], [address] , [facility]. 4 12:31:49 Carpal tunnel syndrome 03778074 Active [address], [place], [address] , [facility]. 4 12:34:01 Hyperlip idemia 03048215 Active 2023 start rosuvast atin 10mg once each evening on 03/24/24. repeat labs in 3 months with [facility]. 10-year ASCVD risk score was 39% based on choleste rol complete d in February 2024. [address], [place], [address] , [facility] 4 16:47:36 Pain in right hip joint 64776880279 9102 Active 2023 [address], [place], [address] , [facility] 4 14:55:49 Problem Notes None recorded. Procedures Surgical History Date Name Laterality Status Provider Name and Address Organization Details Recorded Time 3 Most Recent Mammogram completed MIRELLA MILES RN [facility] 03/13/2024 17:41:51 3 Date of Last Colonoscopy completed MIRELLA MILES RN [facility] 03/13/2024 17:42:40 0 Date of Last Pap Smear completed MIRELLA MILES RN [facility] 03/13/2024 17:42:17 Imaging Results Imaging Date Name Status LastModified by Organiz [facility] Details LastModified Time 02/02/2020 MAMMO, screening completed Information not available 08/11/2024 02:31:26 02/27/2022 MAMMO, screening completed Information not available 08/11/2024 02:31:27 03/08/2022 MAMMO, screening completed Information not available 08/11/2024 02:31:28 08/06/2023 MAMMO, screening completed Information not available 08/11/2024 02:31:29 Procedure Notes None recorded. Medical Equipment None [...] active *takin g mid day with buporo leeon* Not Available Not Available Not Available phentermin [...] Available Not Available No t Available Vitals Date Recorded Body height Provider Name an d Address Organization Details Last Updated DateTime 06/20/2024 163.83 cm MARINE ESTEVEZ MA [facility] 06/20/2024 13:49:43 Date Recorded Body mass index (BMI) Body weight Provider Name and Address Organization Details Last Updated DateTime 06/20/2024 34.6 kg/m2 42632.72 g MARINE ESTEVEZ MA [facility] 06/20/2024 13:50:37 Date Recorded Body temperature Provider Name a nd Address Organization Details Last Updated DateTime 06/20/2024 98.1 [degF] MARINE ESTEVEZ MA [facility] 06/20/2024 13:50:45 Date Recorded Oxygen saturation Oxygen saturation in Arterial blood by Pulse oximetry Provider Name and Address Organization Details Last Updated DateTime 06/20/2024 97 % 97 % MARINE ESTEVEZ MA [facility] 06/20/2024 13:50:54 Date Recorded Heart rate Provider Name an d Address Organization Details Last Updated DateTime 06/20/2024 70 /min MARINE ESTEVEZ MA [facility] 06/20/2024 13:50:59 Date Recorded Body height Provider Name an d Address Organization Details Last Updated DateTime 09/19/2024 163.83 cm MIRELLA MILES RN [facility] 09/19/2024 14:09:15 Date Recorded Body mass index (BMI) Body weight Provider Name and Address Organization Details Last Updated DateTime 09/19/2024 35.8 kg/m2 24598.58 g MIRELLA MILES RN [facility] 09/19/2024 14:09:27 Date Recorded Body temperature Provider Name a nd Address Organization Details Last Updated DateTime 09/19/2024 98.4 [degF] MIRELLA MILES RN [facility] 09/19/2024 14:09:38 Date Recorded Oxygen saturation Oxygen saturation in Arterial blood by Pulse oximetry Provider Name and Address Organization Details Last Updated DateTime 09/19/2024 97 % 97 % MIRELLA MILES RN [facility] 09/19/2024 14:10:02 Date Recorded Heart rate Provider Name an d Address Organization Details Last Updated DateTime 09/19/2024 80 /min MIRELLA MILES RN [facility] 09/19/2024 14:13:25 Date Recorded Respiratory rate Provider Name a nd Address Organization Details Last Updated DateTime 09/19/2024 16 /min MIRELLA MILES RN [facility] 09/19/2024 14:13:28 Date Recorded Body height Provider Name an d Address Organization Details Last Updated DateTime 12/26/2024 163.83 cm MIRELLA MILES RN [facility] 12/26/2024 13:23:31 Date Recorded Body mass index (BMI) Body weight Provider Name and Address Organization Details Last Updated DateTime 12/26/2024 33.9 kg/m2 96464.35 g MIRELLA MILES RN [facility] 12/26/2024 13:23:39 Date Recorded Body temperature Provider Name a nd Address Organization Details Last Updated DateTime 12/26/2024 97.9 [degF] MIRELLA MILES RN [facility] 12/26/2024 13:23:43 Date Recorded Oxygen saturation Oxygen saturation in Arterial blood by Pulse oximetry Provider Name and Address Organization Details Last Updated DateTime 12/26/2024 99 % 99 % MIRELLA MILES RN [facility] 12/26/2024 13:23:56 Date Recorded Heart rate Provider Name an d Address Organization Details Last Updated DateTime 12/26/2024 76 /min MIRELLA MILES RN [facility] 12/26/2024 13:33:00 Date Recorded Respiratory rate Provider Name a nd Address Organization Details Last Updated DateTime 12/26/2024 14 /min MIRELLA MILES RN [facility] 12/26/2024 13:33:03 Date Recorded Systolic blood pressure Diastolic blood pressure Provider Name and Address Organization Details Last Updated DateTime 06/20/2024 110 mm[Hg] 88 mm[Hg] MARINE ESTEVEZ MA [facility] 06/20/2024 13:52:04 Date Recorded Systolic blood pressure Diastolic blood pressure Provider Name and Address Organization Details Last Updated DateTime 09/19/2024 112 mm[Hg] 76 mm[Hg] MIRELLA MILES RN [facility] 09/19/2024 14:14:34 Date Recorded Systolic blood pressure Diastolic blood pressure Provider Name and Address Organization Details Last Updated DateTime 12/26/2024 118 mm[Hg] 86 mm[Hg] MIRELLA MILES RN [facility] 12/26/2024 13:32:15 Social History Question Answer Notes LastModified by Organizat ion Details LastModified Time Tobacco Smoking Status Never Smoker Aure Dubois MA [facility], [facility] 03/01/2024 14:01:24 What Was The Date Of Your Most Recent Tobacco Screening? 12/26/2024 Information not available 12/26/2024 Has Tobacco Cessation Counseling Been Provided? Yes Information not available 03/01/2024 On What Date Was Tobacco Cessation Counseling Provided? 12/26/2024 Information not available 12/26/2024 Do You Or Have You Ever Used Any Other Forms Of Tobacco Or Nicotine? No Information not available 03/01/2024 Sex: Female Functional Status None recorded. Mental Status None recorded. Family History Relationship Description Onset Age of this Age Resolved Age Notes LastModified by Organization Details LastModified Time Father Diabetes mellitus 50 66 [email or web address] Not available 2023 12:41:52 Mother Type 2 diabetes mellitus [email or web address] Not available 2023 12:42:41 Notes:*Problem: Father age [...] Recorded Time Tdap 03/06/2016 completed Not Available [facility] 10/05/2023 06:11:59 COVID-19, mRNA, LNP-S, PF, 100 mcg/0.5mL dose or 50 mcg/0.25mL dose 12/02/2021 completed Not Available [facility] 3 06:11:59 COVID-19 vaccine, vector-nr, rS-Ad26, PF, 0.5 mL 03/06/2021 completed Not Available [facility] 3 06:11:59 Past Encounters Encounter ID Performer Location Encounter Start Date Encounter Closed Date Diagnosis/Indication Diagnosis SNOMED-CT Code Diagnosis ICD10 Code Diagnosis Note [id number] MAURICIO CHILD [facility] [address] [place] [address] 11/01/2023 10:29:00 11/01/2023 12:21:25 Body mass index 30+ - obesity 880058664 Z68.34 She has had success with phentermin e in the past. She is currently in a WW group with her friends and expresses motivation for weight loss. New rx sent. Discussion had re: short term rx, discussed risks vs benefits and should would like to trial it. Her goal is to lose 25 pounds. RTC for concerns. [id number] ROYA VILLEGAS [address] [place] [address] 03/01/2024 13:56:32 03/01/2024 14:18:17 Infection of tooth 879419907 K04.7 58 year old female with history of root canal to tooth #30, with loss of filling many years ago, and tooth breaking in recent years, but never causing pain or swelling. In the last day began noting swelling, redness, and pain to gumline around this tooth. Will treat suspected periapical abscess with amoxicilli n 500 TID X 10 days, and patient will reach out to [facility] Sunday to discuss extraction . [id number] JILL MCKEON [facility] [address] [place] [address] 03/14/2024 11:39:34 03/14/2024 13:14:29 Body mass index 30+ - obesity 756294419 Z68.33 Lab screening for obesity and difficulty losing weight. A1c, TSH also for fatigue complaint. Discussed diet and exercise today. Discussed That with [place] Medicaid medication s likely will not be covered for weight management unless she has a diagnosis of type 2 diabetes. Screening labs today. Hyperlipid emia screening 279395230 Z13.220 Cholestero l panel check.Not currently on any statin or other medication for cholestero l. Fatigue 29541517 R53.83 lab screenings ordered for fatigue. Has not had any labs in about 2 years. History of malignant basal cell neoplasm of skin 368814885 Z85.828 would like to re-establi sh with Dr. Cevallos at [facility] D[facility].. has had basal cell carcinoma' s removed and AKs frozen. would like another visit as it has been a few years. will send referral in case needed. Patient ne w to provider [id number] 68984 Z76.89 Geetha is now establishe d on my patient panel. She will follow-upI n about 3 months to check in on weight management and any other concerns. [id number] JIM PRICE [facility] [address] [place] [address] 05/09/2024 10:02:37 05/09/2024 11:53:32 Body mass index 30+ - obesity 653870556 Z68.33 Lab screening for obesity and difficulty losing weight. A1c, TSH also for fatigue complaint. Discussed diet and exercise today. Discussed That with [place] Medicaid medication s likely will not be covered for weight management unless she has a diagnosis of type 2 diabetes. Screening labs today. will send in initial dosing for generic Contrave. Naltrexone 25 mg once daily. Start this for 1 week and make sure tolerates. Add bupropion SR 100 mg once daily the next week. Can take both together in the morning. Goal is to decrease food cravings and food noise. Phone check-in in 1 month, sooner if concerns.I f cannot tolerate call office. If side effects call office.In person follow-up 3 months, sooner if concerns. phone visit not completed. patient did not answer or call back. will see her hopefully 06/20/24 apt scheduled. [id number] JILL MCKEON [facility] [address] [place] [address] 06/20/2024 13:38:24 06/20/2024 14:21:30 Body mass index 30+ - obesity 619348354 Z68.33 doing well on bupropion 100mg BID [...] week max trial.no history of cardiac issues. Hyperlipidemia 99736329 E78.5 continue rosuvastat in 10mg daily. follow up in 3 months for lipid panel. you will have been on statin 6months at that time [id number] JILL MCKEON [facility] [address] [place] [address] 09/19/2024 13:38:39 09/19/2024 14:58:15 Hyperlipidemia 93157898 E78.5 has been on rosuvastat in 10mg daily since february 2024. , will check lipids again in 3 months. last lipids LDL 191 and total cholestero l 301. risk score was 39%. Body mass index 30+ - obesity 353207663 Z68.33 doing well on bupropion 100mg BID [...] months Pain in ri ght hip joint 8214664383 99303 M25.551 I think this is your hip flexors on right side, anterior groin. stretches, PT will be most helpful. if you get no relief with anterior hip flexor exercises/ stretches online, call me for PT referral. [id number] JILL MCKEON [facility] [address] [place] [address] 10/14/2024 11:02:04 10/14/2024 12:52:18 Body mass index 30+ - obesity 376281325 Z68.33 continue bupropion 150mg XL twice daily. [...] February 2024. Advised this is not a terminal press operator or recurrent weight management solution that is heart healthy. all labs normal in February except cholestero l, will recheck cholestero l at her follow up in 2 months since she has been on rosuvastat in [id number] JILL MCKEON [facility] [address] [place] [address] 12/26/2024 12:51:28 12/26/2024 14:04:01 Body mass index 30+ - obesity 868366493 Z68.33 has lost 12 lbs on phentermin e since 10/14/24 12 week trial phentermin e as she already had a 6 month course of phentermin e 30mg with previous PCP that ended February 2024. Advised this is not a terminal press operator or recurrent weight management solution that is heart healthy. start date 10/14/24. Discussed I'm willing to send in 1 RX today and 1 more full RX on 01/24/25 then a wean dose for a month at 15mg daily to end the course at the end of February.cont inue naltrexone and bupropion 150mg BID. all labs normal in February except cholestero l, will recheck cholestero l at her follow up in 2 months since she has been on rosuvastat in sending in refill for 12/27/24 today continue stationary bike exerciseco ntinue portion control and dietary intake control Hyperlipidemia 27697308 E78.5 has been on rosuvastat in 10mg daily since february 2024. , will check lipids today. last lipids LDL 191 and total cholestero l 301. risk score was 39%. non-fastin g Vitamin D below reference range 243405332 E55.9 vitamin D was 29.6 03/14/24. didn't take any high dose vitamin D or supplement . will recheck. may have more energy with D supplement ation. Insomnia 628512687 G47.0 0 Health Concerns Section Related Observation LastModified by Organization Detai ls LastModified Time None Recorded Concern Status LastModified by Organization Details LastModified Time None Recorded Advance Directives Directive None Recorded Payers Encounter Date Sequence Insurance Name Policy Number Policy Rivera Covered Member ID Rivera Member ID Guarantor Name 05/09/2024 1 [employer] ([employer]ICAID) Geetha J Figureoa [id number] Geetha J Figueroa 06/20/2024 1 [employer] ([employer]) Geetha J Figueroa [id number] Geetha J Figueroa 09/19/2024 1 [employer] ([employer]) Geetha J Figueroa [id number] Geetha J Figueroa 10/14/2024 1 [employer] ([employer]) Geetha J Figueroa [id number] Geetha J Figueroa Notes Date Note Type Note Provider Name and Address Organization Details Recorded Time 05/09/2024 text/html Geetha is a plea adeline 59 year old female on a PHONE visit with me today for follow up to start of naltrexone and bupropion for weight management on 03/23/24. 6 week follow up. Establish care visit with labs was on 03/14/24.All labs were normal except elevated cholesterol. She was started on rosuvastatin 10mg at that time. Today was a check in on med starts and see how she is feeling, if beneficial with weight loss or any side effects.Called cell phone/home phone twice and no answer and no ability to leave message/mailbox is full.Called work number and no answer. [address], [place], [address], [facility]. 05/26/2024 23:46:21 06/20/2024 text/html Geetha is a dillan lr 59 year old female here today for a follow up on weight management.Current BMI is 34.6.Was started on bupropion SR 100mg twice daily and Naltrexone 25mg twice daily back on 03/23/24. Brandon initially did well on this losing 11 lbs by 05/09/24 phone visit check in, but then weight loss has stalled. Is very busy with work and kids so doesn't have much time to exercise. has been averaging walking on treadmill 30 minutes 3 times per week. Feels better and is eating less and makng better choices with food intake. However, still not losing much.Discussed increasing exercise is really rodriguez.Discussed can increase medicaiton but may not budge weight.No negative side effects of medication starts except for initial dizziness. but that has resolved.Her labs were all within range so hard to get any weight management options covered.no history of diabetes, thyroid disease or cardiac events.Was started on rosuvastatin 10mg at last office visit after cholesterol panel showed 10 yr. ascvd risk score of 39%. no negative reported side effects. will get labs next visit in 3months. [address], [place], [address], [facility]. 06/26/2024 01:22:58 09/19/2024 text/html Geetha is a dillan lr 59 year old female here today for a follow up on weight management.Current BMI is 34.6.Was started on bupropion SR 100mg twice daily and Naltrexone 25mg twice daily back on 03/23/24. Brandon initially did well on this losing 11 lbs by 05/09/24 phone visit check in, but then weight loss has stalled. Is very busy with work and kids so doesn't have much time to exercise. has been averaging walking on treadmill 30 minutes 3 times per week. Feels better and is eating less and makng better choices with food intake. However, still not losing much.Discussed increasing exercise is really rodriguez.Discussed can increase medicaiton but may not budge weight.No negative side effects of medication starts except for initial dizziness. but that has resolved.Her labs were all within range so hard to get any weight management options covered.no history of diabetes, thyroid disease or cardiac events.Was started on rosuvastatin 10mg at last office visit after cholesterol panel showed 10 yr. ascvd risk score of 39%. no negative reported side effects. will get labs next visit in 3months. [address], [place], [address], [facility]. 12/20/2024 23:33:37 10/14/2024 text/html Geetha is a plea adeline [...] a statin for hyperlipidemia currently. [address], [place], [address], [facility]. 10/14/2024 12:33:49 OBGyn Episode No OBEpisode recorded.
--- OUTSIDE RECORDS SUMMARY | 2024-12-26 19:40 | XMS_ITS | Encounter Summary ---
Author Organization [facility] Address [address] [place] [address] Care Team Providers Care Television Announcer Name Role Phone Maye House RESEARCH MANAGER Unavailable [phone] Maye House RESEARCH MANAGER Primary Care Provider [phone] Dulce FunkP Primary Care Provider [phone] Encounter Details Date Type Department Care Team (Late st Contact Info) Description 05/02/2022 Lab Requisition [facility]ology & Laboratory Medicine - [facility] [address], [place] [id number] Outr Resulting Lab, Provider Social History Tobacco [...] Procedure Name Priority Date/Time Associated Diagnosis Comments RHEUMATOID FACTOR Routine 05/01/2022 9:55 EDT documented in this encounter Results * RHEUMATOID FACTOR (05/01/2022 9:55 EDT) Rheumatoid Factor <8.6 <12.0 IU/mL 05/02/2022 18:22 EDT [facility] Blood VENOUS BLOOD / Unknown 05/01/2022 9:55 EDT 05/02/2022 17:47 EDT us Provider Outr Resulting Lab CHEMISTRY & BLOOD GA S ORDERABLES Final Result [facility] [address] [place] [address] documented in this encounter Visit Diagnoses Not on filedocumented in this encounter Care Teams Television Announcer Relationship Specialty Start Date End Date Maye House, RESEARCH MANAGER [address] [place], [place] [id number] PCP - General 11/04/15 07/09/22 Dulce Funk FNP [address] [place], [place] [id number] PCP - General 07/10/22 Maye House, RESEARCH MANAGER [address], [place] [address] 10/27/15 documented as of this encounter
--- OUTSIDE RECORDS SUMMARY | 2024-12-26 19:40 | XMS_ITS | Encounter Summary ---
Author Organization [facility] [place] [address] Care Team Providers Care Over Hauler Helper Name Role Phone Avis Lockett APRN Primary Care Provider [phone] Encounter Details Date Type Department Care Team (Late st Contact Info) Description 05/09/2024 Telephone Dermatology at [address] [address] Susan Ramirez RN Social History Tobacco Use Types Packs/Day Years [...] on file documented as of this encounter Miscellaneous Notes * Telephone Encounter - Susan Ramirez RN - 05/09/2024 2:48 PM EDT Patient called and informed of her pathology results. Patient had 2 shave biopsies ED&C on 05/01/2024. Specimen A: shave biopsy ED&C upper central back. Diagnosis: Basal cell carcinoma. Specimen B: shave biopsy ED&C left mid back. Diagnosis: Basal cell carcinoma. Per Dr. Cevallos's recommendation no further treatment is needed on either site and patient to returnto the clinic as needed. Patient informed of Dr. Cevallos's recommendation and she stated that she understood. documented in this encounter Plan of Treatment Not on file documented as of this encounter Visit Diagnoses Not on filedocumented in this encounter Care Teams Over Hauler Helper Relationship Specialty Start Date End Date Avis Lockett [place] [address] [place] [address] PCP - General Family Medicine 05/01/24 documented as of this encounter
--- OUTSIDE RECORDS SUMMARY | 2024-12-26 19:40 | XMS_ITS | Encounter Summary ---
Author Organization [facility] [place] [address] Care Team Providers Care Laser Operator Name Role Phone Dluce Funk APRN Primary Care Provider [phone] Reason for Visit * Auth/Cert (Routine) Specialty Diagnoses / Procedures Referred By Damon t Referred To Contact Diagnoses macromastia Procedures PRO BREAST REDUCTION REDUCTION MAMMOPLASTY, CRUZ (WRVU 16.03) MODIFIER VEGA Matthew Noel MD [facility] [place] [address] [facility] Referral ID Status Reason Start Date Expiration Date Visits Re quested Visits Authorized [id number] 1 1 Encounter Details Date Type Department Care Team (Late st Contact Info) Description 09/04/2023 7:30 AM EDT - 09/04/2023 10:20 AM EDT Surgery [facility] [place] [address] Matthew Noel MD [facility] [place] [address] REDUCTION MAMMOPLASTY, CRUZ (WRVU 16.03) Social History Tobacco Use Types Packs/Day Years [...] Sign Reading Time Taken Comments Blood Pressure 141/93 09/04/2023 10:15 AM EDT Pulse 64 09/04/2023 10:15 AM EDT Temperature 36 ??C (96.8 ??F) 09/04/2023 10:10 AM EDT Respiratory Rate 18 09/04/2023 10:15 AM EDT Oxygen Saturation 100% 09/04/2023 10:15 AM EDT Inhaled Oxygen Concentration - - Weight 91.6 kg (202 lb) 09/04/2023 6:29 AM EDT Height 160 cm (5' 3) 09/04/2023 6:29 AM EDT Body Mass Index 35.78 09/04/2023 6:29 AM EDT documented in this encounter Discharge Instructions * Discharge Instructions* Cande Velazquez RN - 09/04/2023 6:42 AM EDT General Anesthesia Discharge Instructions Go home and rest. You may be sleepy for several hours. Take it easy as sudden position changes may cause nausea and/or dizziness. Use caution on stairs. Do not smoke if you are alone. Follow a light to regular diet as tolerated today. If nausea occurs, start with clear liquids, and progress slowly to a regular diet. Do not drive, operate machinery, drink alcoholic beverages or make any legal decisions after havinggeneral anesthesia. The medications given change your reaction time and alter your judgement. IV site -- slight redness is normal, you can use warm compresses. If tenderness and redness increases or foul drainage occurs, please contact your M.D. Patients who have had endotracheal tubes/LMA (tubes used by the anesthesia staff to ensure a safe airway during your operation) may have a sore throat. This is normal and cold liquids or soothing lozenges will help ease this discomfort. Narcotic pain medications can cause constipation, please ask the surgeons office what they recommend for prevention of this. Some non-pharmaceutical means of constipation prevention include increasing intake of fluids, eating more fruits and vegetables as well as fruit juices. If you are uncomfortable and/or unable to urinate within 8 hours of discharge and it is before 5 pm, call your physician. If it is after 5pm go to the closest emergency room or call the hospital sew out operator at [phone] and ask for physician oncology rep specialist covering for your physician. Questions or problems after 5pm or on a weekend: Call the [facility] sew out operator at and ask for the physician oncology rep specialist covering for your doctor. At 630am you received 1000 mg of acetaminophen- Your next dose should not be taken before 8 hours have passed. Next dose not before- 2:30pm You should not take more than a total of 3000 mg of acetaminophen in a 24 hour period. SCOPOLAMINE PATCH DISCHARGE INSTRUCTIONS You are wearing a scopolamine patch.This is a medication patch used to prevent and treat nausea andvomiting after surgery. The patch is located behind your LEFT ear. Please follow these instructions while you are wearing the patch. Try not to touch the patch. If you do touch the patch, wash your hands right away. Make sure to remove all traces of medicationfrom your hands. If the medication gets on your hands and then you touch your eyes, your vision may become blurry oryour pupils may widen. These are both normal and temporary reactions; they will go away shortly. You may remove the patch as early as: tonight BUT must remove it no later than 0700 am on Friday 09/07 There will still be some active ingredients on the patch, so fold it in half (with the sticky sidestogether) and throw it in the trash. This will help prevent others from coming into contact with it. After removing the patch, carefully wash your hands and behind your ear (or wherever the patch was placed) with soap and water. If you have not urinated in 6-8 hours after your surgery, remove the patch and call your surgeon. * Patient Instructions* Den Fernandez MD - 09/03/2023 7:12 PM EDT Images from the original note were not included. Breast Reduction Discharge Instructions The healing process after breast reduction surgery varies with each person. You should expect to feel tired for the first 2 - 3 weeks due to anesthesia and the healing process. Rest often during the day and get a good night sleep. Pain (short term and nursing home) Pain is a normal part of surgery and the body's healing process. We wish we could make your postop pain zero, but that isn't a realistic expectation. Take Tylenol/acetominophen (do not exceed max daily dose of 4,000mg) as needed for pain relief. After 48 hours you may add Advil/ibuprofen (do not exceed max daily dose of 2,400mg). Take opioid pain medication only as needed for breakthrough pain. The goal is to use opioids to get over the hump of the first few days after surgery, and then quickly transition to managing your pain with non-opioid options to minimize the risk of dependence. We recommend taking an brlw-bjy-Wzpptqx stool softener, such as Colace (docusate) or a gentle laxative while taking your narcotic pain reliever. This will help to maintain bowel regularity and prevent straining. Drink plenty of water. You will may have nerve pain after your surgery because the nerve endings have been disturbed. Nerve pain may feel like a burning sensation, itching or a shooting, electric shock pain. This is normaland will get better as you heal. Swelling Moderate bruising and swelling is normal in the first few weeks after surgery. The swelling will gradually go down, but it may remain for 3 to 6 months. To help with swelling wear your compression bra. Drains Record drain output and bring to your first clinic appointment with you. Based on the nursing assessment, your drain will likely be removed at this appointment. The nurses will show you how to care for the drains See below for detailed drain information Showering You may shower starting 48 hours after surgery. Do not take a bath or use a hot tub until incisions are completely healed. If you have drains in place, tie a shoe lace or string around your neck and attach the drains to this to prevent accidental removal. Have someone nearby during your first shower. Incisions/Dressings You may have some red, pink, yellow/clear drainage from your incisions for the first 1-2 weeks. Change gauze as needed. Continue to use dressings until there is no more drainage. DO???S AND DON???TS FOR THE NEXT [address] a motor vehicle for 1-2 weeks or until you can handle the steering wheel without discomfort. Do not drive while taking your narcotic. You will be able to wear a seat belt if you place a small pillow over your chest area. Do not engage in sexual activity for at least 1 week. Do not smoke or be around anyone who smokes for 2 weeks after your surgery. Smoking delays healing and can lead to infection. Do not lift more than 5 pounds or bend at the waist to lift for 6 weeks. Do not participate in strenuous activities such as running or aerobics for 6 weeks. Do resume walking at a gentle pace. Protect your incisions from the sun for 6 months. You may return to work in 1-6 weeks (average time is 3 weeks) depending upon your work activity. GETTING A GOOD NIGHT SLEEP Your surgeon may ask you to sleep on your back for a few weeks. Here are some suggestions for a good nights sleep. Try sleeping in a recliner. Have extra pillows in your bed for support: two along your side and one under your knees to relievelower back pressure. Buy a large body pillow or a pillow with arm rests for sitting up in bed. GETTING OUT OF BED You will be asked to limit the use of your arms for a few weeks after surgery. This can be a problem when trying to get out of bed. The following suggestions help you get out of bed with minimal use of your arms. When in bed, pull your knees up towards your chest and tip to the side, gently rolling out of bed. Take care not to roll onto your breasts. Create a nest of pillows to prop you in a semi-upright position helps give you that extra boost to get out of bed. Have someone put gentle pressure to your lower shoulder blades as you sit up. This gives you the extra power you need to get to your feet. Complications: Call your doctor with the following signs of infection: A temperature over 100.4 F or 38 C Redness at the incision line that spreads away from the incision after the first 48 rosmery thick yellow, foul smelling drainage Increasing pain that is not relieved by your pain medicine One breast becomes much larger and more firm than the other Contact your Doctor To make an appointment or for questions about scheduling, please contact our administrative officesat [phone] For clinical questions, please call our nurses at [phone] Both offices are open Sunday thru Sunday 8a - 5p. With emergencies after hours, call the hospital sew out operator at [phone] and ask for the Plastic Surgery Resident oncology rep specialist. Future Appointments Date Time Provider Department Center 09/12/2023 9:00 AM NURSE, PLASTIC SURGERY [facility] PLAS 4M [facility] DRAIN CARE INSTRUCTIONS General Information: Drains help to keep fluid from collecting by removing the extra blood and fluid from under the skin. A drain is temporary. It stays in place until the drainage has slowed down or stopped. Your doctoror nurse will decide when each drain should be removed based on outputs, which is why it's important to record these volumes. Drain removal is usually not painful and only takes a few seconds. How do I care for the drains at home? Pin your drains to your clothing by using a safety pin through the plastic loop on the top of the bulb. If the drain is not attached to your clothing, it may pull out from under your skin. Also, a drain usually feels more comfortable when it???s attached. To care for the drain at home, you will have to empty the drain, ???strip?? the drain tubing, and change the dressing if applicable. See the following pages for instructions on how to do this. What problems may I have with my drain? The bulb is not compressed- The bulb may not be squeezed tightly enough, the plug may not be closedsecurely, or the tube has slipped out a bit and is leaking. Follow the instructions on how to emptythe drain. If the bulb remains expanded, then notify your doctor or nurse during business hours. No drainage or sudden decrease in amount of drainage- This is usually due to clots in the drain. Follow the instructions on how to strip the drain tubing. The tube accidentally falls out- If this happens, place a dry gauze dressing over the drain site and notify your doctor or nurse during business hours. Increased redness, swelling, or heat around the tube insertion site- This may be a sign of infection. Take your temperature: if it is higher than 101F or 38.8C, call your doctor or nurse immediately.Otherwise, notify your doctor or nurse during business hours and keep the dressing clean and dry. Post-Surgical Drain Care: After surgery, you will have one or more surgical drains placed near the incision. This device collects fluid, under suction, from your surgical area. The drain promotes healing and recovery, and reduces the chance of infection. The drain will be in place until the drainage slows enough for your body to reabsorb fluid on its own. While you are hospitalized the nursing staff will care for the drain and teach you to continue to do so at home. How to Empty Your MALINDA Drain Note: Wash your hands thoroughly before emptying your drain(s). Have the plastic measuring cup from the hospital ready to collect and measure the drainage. Please measure the output at the same two times every 24 hours and record the amount. Unpin the drain from your clothing. Open the top of the drain. Turn the drain upside down and squeeze the contents of the bulb into themeasuring cup. Be sure to empty the bulb as completely as possible. Flush the contents in the toilet. Use the drain output log chart to record the amount of drainage twice a day or any time the bulb isfull. Record the total for 24 hours for each drain you have. If you have more than one drain, remember to record the drainage from each drain separately. To prevent infection, do not let the stopper or top of the bottle touch the measuring cup or any other surface. Use one hand to squeeze all of the air from the drain. With the drain still squeezed, use your other hand to replace the top. This creates the suction necessary to remove the fluids from your body. Pin the drain back on your clothing to avoid pulling it out accidently. Wash your hands again. Remember to wash your hands before and after the procedure to reduce the risk of infection. Stripping the Tube Often the tube may become blocked with products of healing or clot. If you do not have drainage, then: Hold the tube near where it is inserted in to the skin with your one hand. Use the other hand to hold a pencil and gently squeeze the tubing with the pencil while moving it down toward the drain away from your skin. This forces the more sold material into the bulb for better drainage. Repeat as necessary to start the draining again. Removal of the Tube The tube may be removed once a single tube output is less than 30cc (1 oz.) for 24 hours. Please call the office if the output becomes thicker or has a bad odor. [facility] Drainage Record NAME: Date of Surgery: Date: Time: If more than one drain, which one: Drainage Amount (per drain) Total Amount (per drain; in 24 hours) documented in this encounter Medications at Time of Discharge Medication Sig Dispensed Refills Start Date End Date oxyCODONE (Roxicodone) 5 mg tablet Take 1 tablet by mouth every 4 hours as needed for Pain. 10 tablet 09/04/2023 09/12/2023 documented as of this encounter Progress Notes * Kenyetta Morrison RN - 09/04/2023 11:14 AM EDT Pt c/o 8/10 breast pain, given 5 mg oxycodone by previous nurse. Family was retrieved from the waiting room. Discharge instructions and medications reviewed with patient and escort. All questions answered andwritten copy sent home with patient. Patient ambulated to car for discharge accompanied by [facility] staff member. Drains were emptied prior to DC for family and pt to observe. Neither alliance party had any questions, bothexpressed understanding of what to do and how often to do it. Pt reported 6/10 pain at DC All belongings with pt at discharge. * Kenyetta oMrrison RN - 09/04/2023 10:31 AM EDT Took over pt care from Carrie CHAVIS * Cande Velazquez RN - 09/04/2023 6:56 AM EDT Reviewed MALINDA drain teaching with patient and friend Kelli at bedside. All questions answered. Instructions placed into after visit summary. documented in this encounter H&P Notes * Den Fernandez MD - 09/04/2023 7:01 AM EDT Patient Name: Geetha Figueroa Patient Age: 58 y.o. Birthdate: 1965 Admit date: 09/04/2023 Attending Physician: Matthew Noel MD Plastic Surgery Preoperative H&P: Patient Name: Geetha Figueroa Patient : 1965 Today's Date: 09/04/2023 Geetha Figueroa is a 58 y.o. female with No chief complaint on file. who presents today for Bilateral breast reduction, vega pattern, spair. No changes since last seen. History reviewed. No pertinent past medical history. History reviewed. No pertinent surgical history. History reviewed. No pertinent family history. Social History Socioeconomic History Marital status: Spouse name: Not on file Number of children: Not on file Years of education: Not on file Highest education level: Not on file Occupational History Not on file Tobacco Use Smoking status: Never Smokeless tobacco: Not on file Vaping Use Vaping Use: Never used Substance and Sexual Activity Alcohol use: Never Drug use: Never Sexual activity: Not on file Other Topics Concern Not on file Social History Narrative Not on file Social Determinants of Health Financial Resource Strain: Not on file Food Insecurity: Not on file Transportation Needs: Not on file Physical Activity: Not on file Housing Stability: Not on file No Known Allergies Review of systems: As per HPI, otherwise non-contributory. Exam: General: NAD Resp: CTAB CV: normal rate, regular rhythm A/P: Geetha Figueroa is a 58 y.o. female with No chief complaint on file. who presents for bilateral breast reduction, vega pattern, spair. - Proceed to OR. The risks, benefits and indications were reviewed with the patient and there remains an indication for surgery. Consent signed. - Preoperative abx ordered Den Fernandez MD Plastic Surgery Resident P# [id number] documented in this encounter Miscellaneous Notes * Brief Op Note - Matthew Noel MD - 09/04/2023 9:49 AM EDT Brief Operative Note Patient Name: Geetha Figueroa : [id number] MR#: [id number] Case Date: 09/04/2023 Surgeon: Surgeon(s) and Role: * Matthew Noel MD - Primary * Den Fernandez MD - Resident - Assisting Preoperative diagnosis: macromastia Postoperative diagnosis: macromastia Procedure(s) (LRB): REDUCTION MAMMOPLASTY, CRUZ (WRVU 16.03) (Bilateral) MODIFIER VEGA (N/A) Anesthesia: General Findings: macromastia Complications: none apparent Intake: 1.2 L Intraprocedure Crystalloid Total Intake lactated ringers infusion 1000.00 mL ceFAZolin (Ancef) 1 g vial attached to sodium chloride 0.9% 50 mL Mini-Bag Plus 100.00 mL Total Intake 1100 mL Output Blood Loss 50 mL Total Output 50 mL Net Net Volume 1050 mL Transfusion No data found in the last 1 encounters. Output: Estimated Blood Loss: 50 mL Urine Output:: (no urine output recorded) Other Output: (no other output recorded) Drains: # 15 Jamie x 2 Specimens removed during surgery: Order Name Source Comment Collection Info Order Time SPECIMEN TO PATHOLOGY 1.250 kg macromastia Right Breast excision Yes 09/04/2023 9:10 AM Time specimen removed from patient: 9:08 AM Number of tissue samples (in container) 1 Time placed in fixative: 9:39 AM SPECIMEN TO PATHOLOGY macromastia left Breast excision Yes 09/04/2023 9:12 AM Time specimen removed from patient: 9:11 AM Number of tissue samples (in container) 1 Time placed in fixative: 9:41 AM PATHOLOGY ORDER UPDATE 09/04/2023 9:25 AM Additional information: Additional Info Enter requested changes: 1.115 kg total weight reduction eD-H Order Id number [id number] Disposition: awakened from anesthesia, extubated and taken to the recovery room in a stable condition, having suffered no apparent untoward event. Condition: doing well without problems Attestation: Case Date: 09/04/2023 I was present and I participated during the entire procedure (does not need to include opening and closing). (Please see the Surgical Encounter Summary for any Implant and Specimen details pertinent to this patient.) Surgical Infection Prevention Bundle Used? No Post Op Plan: 7 days: Drain removal in based on nursing assessment 7-10 days: Return for wound check, suture removal, give patient pathology report, jackson bra fitting, review post-op activity restrictions 6 months: retirement f/u Future Appointments Date Time Provider Department Center 09/12/2023 9:00 AM NURSE, PLASTIC SURGERY [facility] 4M [facility] * Op Note - Matthew Noel MD - 09/04/2023 8:00 AM EDT [facility] Operative Note Patient Name: Geetha Figueroa : [id number] MR#: [id number] Case Date: 09/04/2023 Surgeon: Surgeon(s) and Role: * Matthew Noel MD - Primary * Den Fernandez MD - Resident - Assisting Preoperative diagnosis: macromastia Postoperative diagnosis: macromastia Procedure(s) (LRB): REDUCTION MAMMOPLASTY, CRUZ (WRVU 16.03) (Bilateral) MODIFIER VEGA (N/A) Anesthesia: General Estimated Blood Loss: 50 mL Specimens removed during surgery: Order Name Source Comment Collection Info Order Time SPECIMEN TO PATHOLOGY 1.250 kg macromastia Right Breast excision Yes 09/04/2023 9:10 AM Time specimen removed from patient: 9:08 AM Number of tissue samples (in container) 1 Time placed in fixative: 9:39 AM SPECIMEN TO PATHOLOGY macromastia left Breast excision Yes 09/04/2023 9:12 AM Time specimen removed from patient: 9:11 AM Number of tissue samples (in container) 1 Time placed in fixative: 9:41 AM PATHOLOGY ORDER UPDATE 09/04/2023 9:25 AM Additional information: Additional Info Enter requested changes: 1.115 kg total weight reduction eD-H Order Id number [id number] PATHOLOGY ORDER UPDATE Correct weight1.235 09/04/2023 10:01 AM Additional information: Additional Info Enter requested changes: Right Breast eD-H Order Id number [id number] PATHOLOGY ORDER UPDATE Correct Weight 1.165 09/04/2023 10:02 AM Additional information: Additional Info Enter requested changes: Left Breast eD-H Order Id number [id number] Drains: # 15 Jamie x 2 Surgical Closure: Primary Closure - skin incision is closed but with open spaces for wires, nilay, drains or other devices Disposition: awakened from anesthesia, extubated and taken to the recovery room in a stable condition, having suffered no apparent untoward event. Condition: doing well without problems (Please see the Surgical Encounter Summary for any Implant and Specimen details pertinent to this patient.) HPI/Surgical Indications: 58 year old female with symptomatic macromastia. We offered her reductionmammoplasty. She opted for Vega pattern skin incisions the day of surgery, electing to proceed. Procedure Description: The patient was identified and marked in the upright position in the preoperative holding area. Surgical plan was reviewed, she understood the potential risks and complications, and elected to proceed. The patient was brought to the operating room and placed on the operating room table in the supine position. Anesthetic monitors and SCDs were applied. After induction of general anesthesia the patient was intubated orally and maintained on general anesthesia throughout the remainder of the case. The chest and breasts were prepped and draped in a standard sterile fashion. The operation began by securing the nipple areolar complexes at 42 mm bilaterally and de- epithelializing an inferior dermatoglandular pedicle bilaterally. Superior, medial, and lateral mastectomy type flaps were elevated. An inverted horseshoe shape of breast tissue and skin was excised from each side such that to achieve symmetry 1235 g was removed from the right side and 1165 g from the left side. Hemostasis was achieved with electrocautery. #15 Jamie drains were inserted on each side and secured to axillary skin with 2-0 Prolene suture. Multilayer closure was performed with 2-0 Vicryl for parenchymal and 3-0 Vicryl for deep dermal sutures, and 4-0 Monocryl as a running subcuticular closure of the skin. Operative sites were cleansed and dried Xeroform and bacitracin were applied across the wound margins. The drapes were removed and the patient was weaned from anesthesia and extubated in the operating room. She was transitioned to her OR stretcher and transported to the postanesthesia care unit where she was reported to be stable and breathing spontaneously. There were no apparent complications to the procedure and the patient tolerated the procedure well. All sponge and needle counts were reported as correct by nursing staff at the end of the case. Surgical Infection Prevention Bundle Used? No Attestation: Case Date: 09/04/2023 I was present and I participated during the entire procedure (does not need to include opening and closing). MATTHEW NOEL MD 09/04/2023 documented in this encounter Plan of Treatment Not on file documented as of this encounter Procedures Procedure Name Priority Date/Time Associated Diagnosis Comments SPECIMEN TO PATHOLOGY Routine 09/04/2023 9:12 AM EDT SURGICAL PATHOLOGY REPORT Routine 09/04/2023 9:10 AM EDT SPECIMEN TO PATHOLOGY Routine 09/04/2023 9:10 AM EDT MODIFIER VEGA 09/04/2023 7:40 AM EDT Macromastia Breast Reduction () 09/04/2023 7:40 AM EDT Macromastia REDUCTION MAMMOPLASTY, BILATERAL Routine 09/04/2023 6:17 AM EDT Macromastia documented in this encounter Results * Specimen to Pathology (09/04/2023 9:12 AM EDT) AP Specimen 09/04/2023 9:12 AM EDT 09/04/2023 9:12 AM EDT Narrative [facility] - 09/04/2023 9:12 AM EDT Specimen requisition ordered. ??Separate Pathology report to follow Matthew Noel MD PATHOLOGY/CYTOLOGY O RDERABLES Performing Organization Address City/State/[facility] Co de Phone Number [facility] [place] [address] * Surgical Pathology Report (09/04/2023 9:10 AM EDT) Final Diagnosis [id number] ? Location: [facility] The signing pathologist has (i) examined the relevant preparation(s) for the specimen(s) and (ii) rendered or confirmed the diagnosis(es). . ?Surgical Pathology DIAGNOSIS A - Right breast, reduction mammoplasty: - Benign breast tissue with adenosis, columnar cell change/hyperplasi a, and apocrine cysts B - Left breast, reduction mammoplasty: - Benign breast tissue Electronically signed by: ?Fernando SELF, Dipak Luther Verified: ??09/11/2023 16:35 ??Pathologist Performed at: ??-[facility] Dept. of Pathology, [place] [address] Business Intelligence Developer: Jess Enrique MD, AP, ??CLIA Certificate: [id number] SPECIMEN(S) SUBMITTED A - Right breast, weight 1.235 kg; excision (1) B - Left breast, weight 1.165 kg; excision (1) CLINICAL INFORMATION Macromastia SPECIMEN PROCESSING A - Labeled/Fixative: Right breast, fresh. Quantity/Size/Derick ght: Multiple, 23 x 22 x 5 cm, 1221 g. Tissue Description: Fibrofatty breast tissue. Skin: Unremarkable. Sectioning: Adipose and scant, delicate, white fibrous tissue. Sections/Processi ng: Roustabout sections in 3 cassettes labeled A1-A3. B - Labeled/Fixative: Left breast, fresh. Quantity/Size/Derick ght: Multiple, 23 x 22 x 5 cm, 1149 g. Tissue Description: Fibrofatty breast tissue. Skin: Unremarkable. Sectioning: Adipose and scant, delicate, white fibrous tissue. Sections/Processi ng: Roustabout sections in 3 cassettes labeled B1-B3. ??sns 09/11/2023 4:35 PM EDT [facility] BREAST STRUCTURE / Unknown 09/04/2023 9:10 AM EDT 09/04/2023 9:10 AM EDT BREAST STRUCTURE / Unknown 09/04/2023 9:10 AM EDT 09/04/2023 9:10 AM EDT Matthew Noel MD PATHOLOGY/CYTOLOGY O RDERABLES [facility] [place] [id number] [facility] [place] [address] * Specimen to Pathology (09/04/2023 9:10 AM EDT) AP Specimen 09/04/2023 9:10 AM EDT 09/04/2023 9:10 AM EDT Narrative [facility] - 09/04/2023 9:10 AM EDT Specimen requisition ordered. ??Separate Pathology report to follow Matthew Noel MD PATHOLOGY/CYTOLOGY O KENNY [facility] [place] [address] documented in this encounter Visit Diagnoses Diagnosis Macromastia Hypertrophy of breast Macromastia Hypertrophy of breast documented in this encounter Administered Medications Inactive Administered Medications - up to 3 most recent administrations Medication Order MAR Action Action Date Dose Rate Site acetaminophen (Tylenol) tablet 975 mg 975 mg, Oral, ONCE, 1 dose, On Sun09/04/23 at 0645, Administer with a SIP of water only. Maximum dose of acetaminophen is 4,000 mg from all sources in 24 hours., Day of Surgery (Day of Procedure), Routine Given 09/04/2023 6:31 AM EDT 975 mg BUpivacaine (pf) (Marcaine) (2.5 mg/mL) 0.25% injection PRN, Starting on Sun09/04/23 at 0915, Until Sun09/04/23 at 1317, Intra-Operative (Intra-Procedure), Routine Given 09/04/2023 9:15 AM EDT 20 mLs 19- Surgical Site lactated ringers infusion 1,000 mL, at 100 mL/hr, Intravenous, CONTINUOUS, Starting on Sun09/04/23 at 0645, Until Sun09/04/23 at 1113, Day of Surgery (Day of Procedure) New Bag 09/04/2023 9:46 AM EDT New Bag 09/04/2023 7:39 AM EDT New Bag 09/04/2023 6:49 AM EDT 1,000 mLs 100 mL/hr lidocaine-EPINEPHrine (1% - 1:100,000) injection PRN, Starting on Sun09/04/23 at 2000, Until Sun09/04/23 at 1317, Intra-Operative (Intra-Procedure), Routine Given 09/04/2023 8:00 PM EDT 20 mLs 19- Surgical Site oxyCODONE (Roxicodone) tablet 5 mg 5 mg, Oral, EVERY 4 HOURS PRN, Starting on Sun09/04/23 at 0618, Until Sun09/04/23 at 1317, Pain, Routine Given 09/04/2023 10:26 AM EDT 5 mg scopolamine (Transderm-Scop) 1 mg over 3 days patch 1 patch 1 patch, Transdermal, Administer over 24 Hours, ONCE, 1 dose, On Sun09/04/23 at 0730, Day of Surgery (Day of Procedure), Routine Patch Applied 09/04/2023 7:13 AM EDT 1 patch 01- Ear Behind (Left ) scopolamine (Transderm-Scop) 1 mg patch Patch Verification Transdermal, 2 TIMES DAILY, 2 doses, First dose on Sun09/04/23 at 1915, Last dose on Sun09/05/23 at 0900, Verify scopolamine 1 mg patch., Recovery (Recovery-Hospital Unit) documented in this encounter Active and Recently Administered Medications Times are shown in EDT. Scheduled Medication Order 09/02/2023 09/03/2023 09/04/2023 acetaminophen (Tylenol) tablet 975 mg (COMPLETED) 975 mg, Oral, ONCE, 1 dose, On Sun09/04/23 at 0645, Administer with a SIP of water only. Maximum dose of acetaminophen is 4,000 mg from all sources in 24 hours., Day of Surgery (Day of Procedure), Routine 0631 (Given - Provid er: Cande Velazquez RN) ceFAZolin (Ancef) 2 g vial attach to sodium chloride 0.9% 100 mL Mini-Bag Plus 2 g, Intravenous, ONCE, 1 dose, On Sun09/04/23 at 0645, Administer over 30 Minutes, Indication for (Active or Suspected): Prophylaxis 0645 (Due) scopolamine (Transderm-Scop) 1 mg over 3 days patch 1 patch (CANCELED) 1 patch, Transdermal, Administer over 24 Hours, ONCE, 1 dose, On Sun09/04/23 at 0730, Day of Surgery (Day of Procedure), Routine 0713 (Patch Applied - Provider: Cande Velazquez RN)1113 (Due: Patch Removed - Provider: Kenyetta Morrison RN - Comment: Time automatically adjusted from order being discontinued) scopolamine (Transderm-Scop) 1 mg patch Patch Verification Transdermal, 2 TIMES DAILY, 2 doses, First dose on Sun09/04/23 at 1915, Last dose on Sun09/05/23 at 0900, Verify scopolamine 1 mg patch., Recovery (Recovery-Hospital Unit) Continuous Medication Order 09/02/2023 09/03/2023 09/04/2023 lactated ringers infusion (CANCELED) 1,000 mL, at 100 mL/hr, Intravenous, CONTINUOUS, Starting on Sun09/04/23 at 0645, Until Sun09/04/23 at 1113, Day of Surgery (Day of Procedure) 0649 (New Bag - Prov ider: Mis Hills RN)0738 (Paused - Provider: Baron Worthington CRNA - Comment: Switch to gravity)0739 (New Bag - Provider: Baron Worthington CRNA)0946 (New Bag - Provider: Baron Worthington CRNA) PRN Medication Order 09/02/2023 09/03/2023 09/04/2023 BUpivacaine (pf) (Marcaine) (2.5 mg/mL) 0.25% injection (CANCELED) PRN, Starting on Sun09/04/23 at 0915, Until Sun09/04/23 at 1317, Intra-Operative (Intra-Procedure), Routine 0915 (Given - Provid er: Matthew Noel MD - Comment: mixed w/ 20 ml lidocaine 1% w/ epi) lidocaine-EPINEPHrine (1% - 1:100,000) injection (CANCELED) PRN, Starting on Sun09/04/23 at 2000, Until Sun09/04/23 at 1317, Intra-Operative (Intra-Procedure), Routine 2000 (Given - Provid er: Matthew Noel MD - Comment: mixed w/ marcaine 0.25% 1:1) oxyCODONE (Roxicodone) tablet 5 mg 5 mg, Oral, EVERY 4 HOURS PRN, Starting on Sun09/04/23 at 0618, Until Sun09/04/23 at 1317, Pain, Routine 1026 (Given - Provid er: Carrie Sandhu RN) documented in this encounter Care Teams Laser Operator Relationship Specialty Start Date End Date Dulce Funk APRN [address] [place] [address] PCP - General Family Medicine 04/09/23 04/30/24 documented as of this encounter
--- OUTSIDE RECORDS SUMMARY | 2024-12-26 19:40 | XMS_ITS | Encounter Summary ---
Author Organization [facility] Address [address] [place] [address] Care Team Providers Care Electrical Logging Engineer Name Role Phone Maye House ADULT SCHOOL COUNSELOR Primary Care Provider [phone] Encounter Details Date Type Department Care Team (Latest Contact Info) Description 10/26/2015 16:31 EST - 10/26/2015 23:59 EST Hospital Encounter [address] [address] Unknown, Provider, MD Discharge Disposition: Home or Self Care Social History Tobacco Use Types Packs/Day Years Used Date Smoking Tobacco: Never Assessed Comments Unknown Sex and Gender Information Value Date Recorded Sex Assigned at Not on file Legal Sex Female 18:20 EST Gender Identity Female 06/23/2022 14:22 EDT Sexual Orientation Not on file documented as of this encounter Discharge Disposition Disposition Code Departure Means Destination Home or Self Nursing Home documented in this encounter Plan of Treatment Not on file documented as of this encounter Visit Diagnoses Not on filedocumented in this encounter Care Teams Electrical Logging Engineer Relationship Specialty Start Date End Date Maye House, ADULT SCHOOL COUNSELOR [address] [place] [address] PCP - General 10/13/09 10/26/15 documented as of this encounter
--- OUTSIDE RECORDS SUMMARY | 2024-12-26 19:40 | XMS_ITS | Encounter Summary ---
Author Organization [facility] Address [address] [place] [address] Care Team Providers Care Billet Shearer Name Role Phone Maye House HYDROLOGICAL TECHNICAL OFFICER Primary Care Provider [phone] Encounter Details Date Type Department Care Team (Late st Contact Info) Description 02/26/2006 Results Only [facility] - Maple conversion [address] [place] [address] Pippa Minaya, [facility] [address] [place] [address] [place] [phone] Social History Tobacco Use Types Packs/Day Years [...] Priority Date/Time Associated Diagnosis Comments CYTOPATHOLOGY Routine 02/26/2006 0:00 EDT documented in this encounter Results * CYTOPATHOLOGY (02/26/2006 0:00 EDT) Pathology Report: CYTOPATHOLOGY REPORT Reports generated via electronic interface contain original data; however they are lacking the format of the original report. Caution should be taken when reading/interpreti ng unformatted reports. Name: ? GEETHA OQUENDO ? Accession #: ? [id number] : ? 1965 (Age: 40) ??F ?Collect Date: ? 02/26/2006 Location: ? [facility] ? Receive Date: ? 02/27/2006 Provider: ?PIPPA MINAYA FINISH SPECIALIST Copy to: ? Specimen/Source: ?ThinPrep Pap Test, Cervix/Endocervix, processed on Endoart ThinPrep Imaging System, with manual evaluation Last Menstrual Period: ? 5 months ago Other: ? HPVA - HPV testing requested if ASC-US on the current ThinPrep Pap test. ? SPECIMEN ADEQUACY ? Satisfactory for Evaluation - transformation zone component present GENERAL CATEGORIZATION ? Negative for Intraepithelial Lesion or Malignancy INTERPRETATION ? Reactive cellular changes associated with inflammation present (includes repair). ? Document reviewed and electronically signed by: ? CORRINA BRAR MD ? Report Date: ??03/01/2006 15:44 End of Report [facility] 02/26/2006 02/27/2006 us Pippa Minaya FINISH SPECIALIST PATHOLOGY ORDERABLES Final R esult [facility] [address] [place] [address] documented in this encounter Visit Diagnoses Not on filedocumented in this encounter Care Teams Billet Shearer Relationship Specialty Start Date End Date Maye [place] [address] PCP - General 10/13/09 10/26/15 documented as of this encounter
--- OUTSIDE RECORDS SUMMARY | 2024-12-26 19:40 | XMS_ITS | Encounter Summary ---
Author Organization [facility] Address [facility] [place] [address] Care Team Providers Care Clinical Administrator Name Role Phone Dulce Funk APRN Primary Care Provider [phone] Encounter Details Date Type Department Care Team (Latest Contact Info) Description 09/12/2023 Travel Social History Tobacco Use Types Packs/Day [...] on filedocumented in this encounter Care Teams Clinical Administrator Relationship Specialty Start Date End [place] [address] PCP - General Family Medicine 04/09/23 04/30/24 documented as of this encounter
--- OUTSIDE RECORDS SUMMARY | 2024-12-26 19:40 | XMS_ITS | Encounter Summary ---
Author Organization [facility] Address [address] [place] [address] Care Team Providers Care Electronics Design Engineer Name Role Phone Unavailable Primary Care Provider Unavailabl e Encounter Details Date Type Department Care Team (Late st Contact Info) Description 10/19/2008 Before PRISM Converted Visit (Maple) [facility] - Maple conversion [address] [place] [address] Pippa Minaya, [address] [place] [id number] Social History Tobacco Use Types Packs/Day Years [...] Procedure Name Priority Date/Time Associated Diagnosis Comments HPV DETECTION, HIGH RISK TYPES Routine 10/19/2008 11:58 EST CYTOPATHOLOGY Routine 10/19/2008 0:00 EST documented in this encounter Results * HUMAN PAPILLOMA VIRUS DNA TEST (10/19/2008 11:58 EST) Specimen Description Cervix, ThinPrep vial [facility] Result Negative for HPV types 16, 18, 31, 33, 35, 39, 45, 51, 52, 56, 58, 59, and 68. [facility] Report Status Final 10/29/2008 [facility] 10/19/2008 11:5 8 EST 10/27/2008 10:40 EST us Pippa Minaya LUMBER CHECKER MICROBIOLOGY - GENERAL ORDER ELIAS Final Result [facility] [address] [place] [address] * CYTOPATHOLOGY (10/19/2008 0:00 EST) Pathology Report: CYTOPATHOLOGY REPORT ? Reports generated via electronic interface contain original data; ? however they are lacking the format of the original report. ? Caution should be taken when reading/interpreti ng unformatted reports. ? Name: ? GEETHA OQUENDO ? Accession #: ? [id number] ? : ? 1965 (Age: 43) ??F ?Collect Date: ? 10/19/2008 ? Location: ? [facility] ? Receive Date: ? 10/20/2008 ? Provider: ?PIPPA GALA LUMBER CHECKER ? Copy to: ? Specimen/Source: ?Pap Test, Cervix/Endocervix, ThinPrep Imaging System ? with manual evaluation ? Last Menstrual Period: ? 10/27/08 ? Hormonal/Contracep tive Status: ? Depo-Provera ? Previous Gynecologic Pathology: ? LSIL: 8/6/07 ? Treatment History: ? Miscellaneous treatment: 08/20/07 A. endocx. currett. no evidence of dysplasia ?? Cervical biopsy: B cx. bx. no evidence of dysplasia ? Other: ? HPVA - HPV testing requested if ASC-US on the current ThinPrep Pap test. ? SPECIMEN ADEQUACY ? Satisfactory for Evaluation ? - transformation zone component present ? GENERAL CATEGORIZATION ? Epithelial Cell Abnormality ? INTERPRETATION ? Squamous Cell Abnormality - Atypical squamous cells, undetermined ? significance (ASC-US). ? EDUCATIONAL NOTES/RECOMMENDATI ONS ? [facility] recommends following the 2006 Consensus Guidelines for the Management of Women with Abnormal Cervical Cancer Screening Tests (JLGTD, ? 2007;11(4):201-222 ). ??Consensus guidelines are available online at ? www.ASCCP.org. ? Document reviewed and electronically signed by: ? Suzi Barajas, MBBCh ? Report Date: ??10/26/2008 12:34 ? End of Report ? [facility] 10/19/2008 10/20/2008 us Pippa Minaya LUMBER CHECKER PATHOLOGY ORDERABLES Final R esult [facility] [address] [place] [address] documented in this encounter Visit Diagnoses Not on filedocumented in this encounter
--- OUTSIDE RECORDS SUMMARY | 2024-12-26 19:40 | XMS_ITS | Encounter Summary ---
Author Organization [facility] Address [address] [place] [address] Care Team Providers Care Justice Court Judge Name Role Phone Maye House AIRPORT OPERATIONS SPECIALIST Primary Care Provider [phone] Encounter Details Date Type Department Care Team (Late st Contact Info) Description 12/28/2009 Orders Only [facility] Services - [facility] [address] [place], [place] [address] Pippa Minaya, [facility] [address] [place] [phone] Social History Tobacco Use Types Packs/Day [...] Comments HPV DETECTION, HIGH RISK TYPES Routine 12/28/2009 13:59 EST CYTOPATHOLOGY Routine 12/28/2009 0:00 EST documented in this encounter Results * HUMAN PAPILLOMA VIRUS DNA TEST (12/28/2009 13:59 EST) Specimen Description Cervix, ThinPrep vial [facility] Result Negative for HPV types 16, 18, 31, 33, 35, 39, 45, 51, 52, 56, 58, 59, and 68. [facility] Report Status Final 01/05/2010 [facility] 12/28/2009 13:5 9 EST 12/31/2009 13:59 EST Pippa Minaya PRODUCTION MACHINE TENDER MICROBIOLOGY - GENERAL ORDER ELIAS Final Result [facility] [address] [place] [address] * CYTOPATHOLOGY (12/28/2009 0:00 EST) Pathology Report: CYTOPATHOLOGY REPORT ? Reports generated via electronic interface contain original data; ? however they are lacking the format of the original report. ? Caution should be taken when reading/interpreti ng unformatted reports. ? Name: ? GEETHA OQUENDO ? Accession #: ? [id number] ? : ? 1965 (Age: 44) ??F ?Collect Date: ? 12/28/2009 ? Location: ? [facility] ? Receive Date: ? 12/29/2009 ? Provider: ?PIPPA GALA PRODUCTION MACHINE TENDER ? Copy to: ? Specimen/Source: ?Pap Test, Cervix/Endocervix, ThinPrep Imaging System ? with manual evaluation ? Last Menstrual Period: ? Hormonal/Contracep tive Status: ? Depo-Provera ? Previous Gynecologic Pathology: ? LSIL: 08/07 ? ASC-US: 11/08 HPV neg. ? Treatment History: ? Cervical biopsy: no evidence of dysplasia and endocx. currett. no evidence ? dysplasia 09/07 ? Other: ? HPVA - HPV testing requested if ASC-US on the current ThinPrep Pap test. ? SPECIMEN ADEQUACY ? Satisfactory for Evaluation ? - transformation zone component present ? GENERAL CATEGORIZATION ? Epithelial Cell Abnormality ? INTERPRETATION ? Squamous Cell Abnormality - Atypical squamous cells, undetermined ? significance (ASC-US). ? EDUCATIONAL NOTES/RECOMMENDATI ONS ? [facility] recommends following the 2006 Consensus Guidelines for the Management of Women with Abnormal Cervical Cancer Screening Tests (JLGTD, ? 2007;11(4):201-222 ). ??Consensus guidelines are available online at ? www.ASCCP.org. ? Document reviewed and electronically signed by: ? MIRTA MOUNT MD ? Report Date: ??12/31/2009 11:55 ? End of Report ? [facility] 12/28/2009 12/29/2009 us Pippa Minaya PRODUCTION MACHINE TENDER PATHOLOGY ORDERABLES Final R esult [facility] [address] [place] [address] documented in this encounter Visit Diagnoses Not on filedocumented in this encounter Care Teams Justice Court Judge Relationship Specialty Start Date End Date Maye House, AIRPORT OPERATIONS SPECIALIST [place] [address] PCP - General 10/13/09 10/26/15 documented as of this encounter
--- OUTSIDE RECORDS SUMMARY | 2024-12-26 19:40 | XMS_ITS | Encounter Summary ---
Author Organization [facility] Address [address] [place] [address] Care Team Providers Care Hotel Clerk Name Role Phone Maye House OPTICS TEST TECHNICIAN Unavailable [phone] Dulce Funk Primary Care Provider [phone] Reason for Visit * Reason Onset Date Comments Results 07/11/2022 Encounter Details Date Type Department Care Team (Late st Contact Info) Description 07/11/2022 Telephone [facility] Rheumatology & Immunology - [facility] [address] [place], [place] [id number] Nish Silvestre MBBS [address] [place] [address], [address] [place] [address] Results Social History Tobacco Use [...] Telephone Encounter - Nish Silvestre MBBS - 07/11/2022 1125 EDT Telephone call: S: - Awaiting PT O: (07/10/22) XR foot: 1. Moderate left and mild right hallux valgus deformities. Mild bilateral 1st MTP arthrosis. 2. Mild bilateral midfoot arthrosis. 3. Prominent bilateral calcaneal spurring at the attachments of the plantar fascia. (07/10/22) XR knees: Mild right and minimal left knee degenerative changes. (07/10/22) XR lumbar spine: Mild-moderate lumbar spondylosis Impression & plan: - OA and DDD - Prior plantar fascitis. - Continue as per 06/29/22 documented in this encounter Plan of Treatment Not on file documented as of this encounter Visit Diagnoses Not on filedocumented in this encounter Care Teams Hotel Clerk Relationship Specialty Start Date End Date Dulce Funk FNP [address] [place] [address] PCP - General 07/10/22 Maye House, [place] [address] [place] [address] 10/27/15 documented as of this encounter
--- OUTSIDE RECORDS SUMMARY | 2024-12-26 19:40 | XMS_ITS | Encounter Summary ---
Author Organization [facility] Address [address] [place] [address] Care Team Providers Care Upholstery Trimmer Name Role Phone Maye House HOG RIBBER Unavailable [phone] Maye House HOG RIBBER Primary Care Provider [phone] Dulce Funk Primary Care Provider [phone] Encounter Details Date Type Department Care Team (Late st Contact Info) Description 07/06/2022 Lab Requisition [facility] Pathology & Laboratory Medicine - [facility] [address] [place] [address] Outr Resulting Lab, Provider Social History Tobacco [...] Procedure Name Priority Date/Time Associated Diagnosis Comments CCP ANTIBODIES Routine 07/06/2022 9:18 EDT documented in this encounter Results * CCP ANTIBODIES (07/06/2022 9:18 EDT) CCP Antibodies <2.5 <5.0 U/mL 07/07/2022 8:[address] [facility] Blood VENOUS BLOOD / Unknown 07/06/2022 9:18 EDT 07/06/2022 21:19 EDT us Provider Outr Resulting Lab IMMUNOLOGY AND SEROL OGY ORDERABLES Final Result [facility] [address] [place] [address] documented in this encounter Visit Diagnoses Not on filedocumented in this encounter Care Teams Upholstery Trimmer Relationship Specialty Start Date End Date Maye House, HOG RIBBER [address] [facility] [place] [id number] PCP - General 11/04/15 07/09/22 Dulce Funk FNP [address] [facility] [place] [address] PCP - General 07/10/22 Maye House HOG RIBBER [address], [place] [id number] 10/27/15 documented as of this encounter
--- OUTSIDE RECORDS SUMMARY | 2024-12-26 19:40 | XMS_ITS | Encounter Summary ---
Author Organization [facility] Address [facility] [place] [address] Care Team Providers Care Government Professor Name Role Phone Avis Lockett APRN Primary Care Provider [phone] Encounter Details Date Type Department Care Team (Latest Contact Info) Description 05/01/2024 10:18 PM EDT - 05/01/2024 11:59 PM EDT Hospital [place] [id number] Discharge Disposition: Home Social History Tobacco Use Types Packs/Day Years Used Date Smoking Tobacco: Never Alcohol Use Standard Drinks/Week Comments Never 0 (1 standard drink = 0.6 oz pur e alcohol) [facility] Inpatient Questions Answer Date Recorded Does Anyone [...] on file documented as of this encounter Medications at Time of Discharge Medication Sig Dispensed Refills Start Date End Date albuteroL 90 mcg/actuation inhaler (HFA) Inhale 180 mcg into the lungs Every 4 hours. buPROPion SR (Wellbutrin SR) 100 mg SR 12 hr tablet TAKE ONE TABLET BY MOUTH EVERY MORNING FOR FOOD CRAVINGS naltrexone (Depade) 50 mg tablet TAKE ONE-HALF TABLET BY MOUTH IN THE MORNING FOR FOOD CRAVINGS phentermine (T-Diet) 30 mg capsule Take 1 capsule by mouth Daily at Noon. 01/24/2024 rosuvastatin (Crestor) 10 mg tablet TAKE ONE TABLET BY MOUTH EVERY EVENING FOR HIGH CHOLESTEROL documented as of this encounter Plan of Treatment Not on file documented as of this encounter Procedures Procedure Name Priority Date/Time Associated Diagnosis Comments SURGICAL PATHOLOGY REPORT Routine 05/01/2024 4:30 PM EDT documented in this encounter Results * (ABNORMAL) Surgical Pathology Report (05/01/2024 4:30 PM EDT) Final Diagnosis [id number] ? Location: [facility] The signing pathologist has (i) examined the relevant preparation(s) for the specimen(s) and (ii) rendered or confirmed the diagnosis(es). . ?Surgical Pathology DIAGNOSIS A - Upper central back, skin shave biopsy ED&C: - ??Basal cell carcinoma, superficial and nodular types, ?? not identified at the histologic edges in planes of section examined (stroma close to deep edge) B - Left mid back, skin shave biopsy ED&C: - ??Basal cell carcinoma, superficial and nodular types, ?? present at the peripheral specimen edge Electronically signed by: ?Geetha SELF, PhD, Paul Espinoza Verified: ??05/07/2024 9:10 ?? Derm[address] st, Bone & Soft Tissue Pathologist Performed at: ??-[facility] Dept. of Pathology, [place] [address] Construction Equipment Technician: Jess Enrique MD, FCAP, ??CLIA Certificate: [id number] DISCUSSION THIS RESULT REQUIRES PHYSICIAN/A.P.P. FOLLOW UP SPECIMEN(S) SUBMITTED A - upper central back, ED&C B - L mid back, ED&C Referring Identifier: ?(not provided) CLINICAL INFORMATION Pearly papules, SCC A/BCCA SPECIMEN PROCESSING A - Labeled/Fixative : A, formalin. Quantity/Size: ??Single, 1.0 x 0.7 cm. Tissue Description: Skin shave previously inked blue on apical surface. Sections/Process ing: Inked, quadrisected and entirely submitted in 1 cassette labeled A1. B - Labeled/Fixative : B, formalin. Quantity/Size: ??Single, 1.4 x 1.0 cm. Tissue Description: Vail-pink skin shave. Sections/Process ing: Inked, serially sectioned and entirely submitted in 2 cassettes as follows: ?B1: ??2 tissue fragments, ends ?B2: ??4 tissue fragments, body ??CCP(A) 05/07/2024 9:10 AM EDT [facility] SPECIMEN FROM SKIN / Unknown 05/01/2024 4:30 PM EDT 05/01/2024 4:30 PM EDT SPECIMEN FROM SKIN / Unknown 05/01/2024 4:30 PM EDT 05/01/2024 4:30 PM EDT Errol Cevallos MD PATHOLOGY/CYTOLOGY O RDERABLES [facility] [place] [address] documented in this encounter Visit Diagnoses Not on filedocumented in this encounter Care Teams Government Professor Relationship Specialty Start Date End Date Avis Lockett APRN [place] [address] PCP - General Family Medicine 05/01/24 documented as of this encounter
--- OUTSIDE RECORDS SUMMARY | 2024-12-26 19:41 | XMS_ITS | Encounter Summary ---
Author Organization [facility] [place] [address] Care Team Providers Care Breaker Operator Name Role Phone Betty Funkh JULIÁN Primary Care Provider [phone] Reason for Referral * Consultation (Routine) - Closed Specialty Diagnoses / Procedures Referred By Contmiguel t Referred To Contact Plastic Surgery Diagnoses Macromastia BBR Delvin Lucio DNP [address] [place] [address] [facility] Plastic Surg [address] [place] [id number] Referral ID Status Reason Start Date Expiration Date V isits Requested Visits Authorized [id number] Closed Consult, Test & Treat PCP Updated and/or Approved 04/09/2023 04/08/2024 6 6 Encounter Details Date Type Department Care Team (Late st Contact Info) Description 04/09/2023 Transcribe Orders eDH Incoming Referrals [phone] Delvin Lucio DNP [address] [place], [place] [id number] Macromastia Social History Tobacco Use Types Packs/Day Years Used Date Smoking Tobacco: Never Sex and Gender Information Value Date Recorded Sex Assigned at Not on file Gender Identity Not on file Sexual Orientation Not on file documented as of this encounter Plan of Treatment Scheduled Referrals Name Type Priority Associated Diagnoses Orde r Schedule Referral to Plastic Surgery Outpatient Referral Routine Macromastia Ordered: 04/09/2023 documented as of this encounter Visit Diagnoses Diagnosis Macromastia Hypertrophy of breast documented in this encounter Care Teams Breaker Operator Relationship Specialty Start Date End Date Dulce Funk APRN [address] [place] [address] PCP - General Family Medicine 04/09/23 04/30/24 documented as of this encounter
--- OUTSIDE RECORDS SUMMARY | 2024-12-26 19:41 | XMS_ITS | Encounter Summary ---
Author Organization [facility] [place] [address] Care Team Providers Care Career Education Teacher Name Role Phone Dulce Funk APRN Primary Care Provider [phone] Reason for Visit * Auth/Cert (Routine) Specialty Diagnoses / Procedures Referred By Damon t Referred To Contact Diagnoses macromastia Procedures PRO BREAST REDUCTION REDUCTION MAMMOPLASTY, CRUZ (WRVU 16.03) MODIFIER VEGA Matthew Noel MD [facility] [place] [address] [facility] Referral ID Status Reason Start Date Expiration Date Visits Re quested Visits Authorized [id number] 1 1 Encounter Details Date Type Department Care Team (Latest Contact Info) Description 09/04/2023 6:12 AM EDT - 09/04/2023 11:13 AM EDT Hospital Encounter Outpatient [place] [address] Matthew Noel MD [facility] [place] [address] Macromastia Discharge Disposition: Home Social History Tobacco Use Types Packs/Day Years Used Date Smoking Tobacco: Never Tobacco Cessation:Counseling Given: Not Answered Alcohol Use Standard Drinks/Week Comments Never 0 (1 standard drink = 0.6 oz pur e alcohol) [facility] Inpatient Questions Answer Date Recorded Does Anyone [...] closest emergency room or call the hospital sizing machine and drier operator at [phone] and ask for physician lease administration supervisor covering for your physician. Questions or problems after 5pm or on a weekend: Call the [facility] sizing machine and drier operator at and ask for the physician lease administration supervisor covering for your doctor. At 630am you [...] good night sleep. Pain (short term and group home) Pain is a normal part of [...] risk of dependence. We recommend taking an rgwe-ulr-Qxrgjpe stool softener, such as Colace (docusate) or [...] about scheduling, please contact our administrative officesat [phone] For clinical questions, please call our nurses at [phone] Both offices are open Sunday thru Sunday 8a - 5p. With emergencies after hours, call the hospital sizing machine and drier operator at [phone] and ask for the Plastic Surgery Resident lease administration supervisor. Future Appointments Date Time Provider Department [place] 09/12/2023 9:00 AM NURSE, PLASTIC SURGERY [facility] [place] [facility] 4M [facility] [place] DRAIN CARE INSTRUCTIONS General Information: Drains help [...] for family and pt to observe. Neither libertarian had any questions, bothexpressed understanding of what to do and how often to do it. Pt reported 6/10 pain at DC All belongings with pt at discharge. * Kenyetta Morrison RN - 09/04/2023 10:31 AM EDT Took [...] Den Fernandez MD Plastic Surgery Resident P# [phone] documented in this encounter Miscellaneous Notes * Brief Op Note - Matthew Noel MD - 09/04/2023 9:49 AM EDT Brief Operative Note Patient Name: Geetha Figueroa : [id number] MR#: [id number] Case Date: 09/04/2023 Surgeon: Surgeon(s) and Role: [...] total weight reduction eD-H Order Id number [id number] Disposition: awakened from anesthesia, extubated and taken [...] fitting, review post-op activity restrictions 6 months: terminal make up operator f/u Future Appointments Date Time Provider Department Center 09/12/2023 9:00 AM NURSE, PLASTIC SURGERY [facility] [place] [facility] * Op Note - Matthew Noel MD - 09/04/2023 8:00 AM EDT [facility] [place] Operative Note Patient Name: Geetha Figueroa : [id number] MR#: [id number] Case Date: 09/04/2023 Surgeon: Surgeon(s) and Role: [...] total weight reduction eD-H Order Id number [id number] PATHOLOGY ORDER UPDATE Correct weight1.235 09/04/2023 10:01 AM Additional information: Additional Info Enter requested changes: Right Breast eD-H Order Id number [id number] PATHOLOGY ORDER UPDATE Correct Weight 1.165 09/04/2023 10:02 AM Additional information: Additional Info Enter requested changes: Left Breast eD-H Order Id number [id number] Drains: # 15 Jamie x 2 Surgical [...] AM EDT 09/04/2023 9:12 AM EDT Narrative [facility] - 09/04/2023 9:12 AM EDT Specimen requisition ordered. ??Separate Pathology report to follow Matthew Noel MD PATHOLOGY/CYTOLOGY O RDERABLES Performing Organization Address City/State/[facility] Co de Phone Number [facility] [place] [address] * Surgical Pathology Report (09/04/2023 9:10 AM EDT) Final Diagnosis [id number] ? Location: [facility] The signing pathologist has [...] Luther Verified: ??09/11/2023 16:35 ??Pathologist Performed at: ??-[facility] [place] [facility] Dept. of Pathology, [place] [address] Transfer Iron Operator: Jess Enrique MD, AP, ??CLIA Certificate: [id number] SPECIMEN(S) SUBMITTED A - Right breast, weight 1.235 kg; excision (1) B - Left breast, weight 1.165 kg; excision (1) CLINICAL INFORMATION Macromastia SPECIMEN PROCESSING A - Labeled/Fixative: Right breast, fresh. Quantity/Size/Derick ght: Multiple, 23 x 22 x 5 cm, 1221 g. Tissue Description: Fibrofatty breast tissue. Skin: Unremarkable. Sectioning: Adipose and scant, delicate, white fibrous tissue. Sections/Processi ng: Air Chipper sections in 3 cassettes labeled A1-A3. B - Labeled/Fixative: Left breast, fresh. Quantity/Size/Derick ght: Multiple, 23 x 22 x 5 cm, 1149 g. Tissue Description: Fibrofatty breast tissue. Skin: Unremarkable. Sectioning: Adipose and scant, delicate, white fibrous tissue. Sections/Processi ng: Air Chipper sections in 3 cassettes labeled B1-B3. ??sns 09/11/2023 4:35 PM EDT [facility] BREAST STRUCTURE / Unknown 09/04/2023 9:10 AM EDT 09/04/2023 9:10 AM EDT BREAST STRUCTURE / Unknown 09/04/2023 9:10 AM EDT 09/04/2023 9:10 AM EDT Matthew Noel MD PATHOLOGY/CYTOLOGY O KENNY [facility] [place] [id number] [facility] [place] [address] * Specimen to Pathology (09/04/2023 9:10 AM EDT) AP Specimen 09/04/2023 9:10 AM EDT 09/04/2023 9:10 AM EDT Narrative [facility] - 09/04/2023 9:10 AM EDT Specimen requisition ordered. ??Separate Pathology report to follow Matthew Noel MD PATHOLOGY/CYTOLOGY O RDERAKEVIN [facility] [place] [address] documented in this encounter Visit Diagnoses Diagnosis [...] Given 09/04/2023 6:31 AM EDT 975 mg lactated ringers infusion 1,000 mL, at 100 mL/hr, Intravenous, CONTINUOUS, Starting on Sun09/04/23 at 0645, Until Sun09/04/23 at 1113, Day of Surgery (Day of Procedure) New Bag 09/04/2023 9:46 AM EDT New Bag 09/04/2023 7:39 AM EDT New Bag 09/04/2023 6:49 AM EDT 1,000 mLs 100 mL/hr oxyCODONE (Roxicodone) tablet 5 mg 5 mg, [...] AM EDT 1 patch 01- Ear Behind (Left) scopolamine (Transderm-Scop) 1 mg patch Patch Verification [...] RN) documented in this encounter Care Teams Career Education Teacher Relationship Specialty Start Date End Date Dulce Funk [place] [address] PCP - General Family Medicine 04/09/23 04/30/24 documented as of this encounter
--- OUTSIDE RECORDS SUMMARY | 2024-12-26 19:41 | XMS_ITS | Encounter Summary ---
Author Organization [facility] [place] [address] Care Team Providers Care Drycleaner Name Role Phone Sherrell Lemos APRN Primary Care Provider [phone] Reason for Visit * Reason Comments Skin Check New patient * Consultation (Routine) - Closed Specialty Diagnoses / Procedures Referred By Damon rodriguez Referred To Contact Dermatology Diagnoses facial skin lesions Sherrell Lemos APRN [address] [place] [address] Errol Cevallos MD [address] [place] [address], [facility] [place] [address] Referral ID Status Reason Start Date Expiration Date V isits Requested Visits Authorized [id number] Closed Consult, Test & Treat Connection Center 03/15/2016 03/15/2017 1 1 Encounter Details Date Type Department Care Team (Late st Contact Info) Description 07/14/2016 1:45 PM EDT Office Visit Dermatology at [address] [address] Errol Cevallos MD [address] [place] [address], [facility] [place] [address] Actinic keratosis; Basal cell carcinoma; History of SCC (squamous cell carcinoma) of skin Social History Tobacco Use Types Packs/Day Years Used Date Smoking Tobacco: Never Sex and Gender Information Value Date Recorded Sex Assigned at Not on file Gender Identity Not on file Sexual Orientation Not on file documented as of this encounter Progress Notes * Errol Cevallos MD - 07/14/2016 1:45 PM EDT PROBLEM: 1. Skin lesion concern. 2. History of past non melanoma skin cancer, left dorsal forearm, removed by Dr. Zamorano at [facility]. 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 She recalls having had skin treated by Dr. Zamorano in the past and is concerned that these may represent more. She was referred by Sherrell Lemos. Physical examination reveals a fair-skinned, very freckled, blue-eyed woman with erythematous patches on her back, left arm and left lateral shoulder, concerning for actinic keratoses. On the superior left shoulder she has a localized cluster of papules in a roughly 8 mm area consistent with BCCA. Examination of the face, the neck, the chest, the back, and the forearms is otherwise benign. ASSESSMENT/PLAN: 1. Actinic keratoses. A. LN2 x2 applied to each of 4 sites, arms and back. 2. 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 A. Today the site was anesthetized and removed with shave C and D x3. Antibiotic ointment and a Band-Aid placed. After curettage, the left superior shoulder site measured 8 mm in diameter. C. Wound are instructions and supplies given. Recommend to return to clinic here in 3 months for repeat check. Any recurrence of the erythema at these treatment sites will require at that time likely shave C and D. cc: JIM Gaines documented in this encounter Plan of Treatment Not on file documented as of this encounter Visit Diagnoses Diagnosis Actinic keratosis Basal cell carcinoma Basal cell carcinoma of skin, site unspecified History of SCC (squamous cell carcinoma) of skin Personal history of other malignant neoplasm of skin documented in this encounter Care Teams Drycleaner Relationship Specialty Start Date End Date Sherrell Lemos APRN PCP - General Family Medicine 03/14/16 04/08/23 documented as of this encounter
--- OUTSIDE RECORDS SUMMARY | 2024-12-26 19:41 | XMS_ITS | Encounter Summary ---
[place] [address] Care Team Providers Care Financial Quantitative Analyst Name Role Phone Dulce Funk APRN Primary Care Provider [phone] Encounter Details Date Type Department Care Team (Latest Contact Info) Description 04/23/2023 Travel Social History Tobacco Use Types Packs/Day Years Used Date Smoking Tobacco: Never Sex and Gender Information Value Date Recorded Sex Assigned at Not on file Gender Identity Not on file Sexual Orientation Not on file documented as of this encounter Plan of Treatment Not on file documented as of this encounter Visit Diagnoses Not on filedocumented in this encounter Care Teams Financial Quantitative Analyst Relationship Specialty Start Date End Date [place] [address] PCP - General Family Medicine 04/09/23 04/30/24 documented as of this encounter
--- OUTSIDE RECORDS SUMMARY | 2024-12-26 19:41 | XMS_ITS | Encounter Summary ---
[place] [address] Care Team Providers Care Machine Tech Name Role Phone Dulce Funk APRN Primary Care Provider [phone] Encounter Details Date Type Department Care Team (Latest Contact Info) Description 04/30/2023 Travel Social History Tobacco Use Types Packs/Day Years Used Date Smoking Tobacco: Never Sex and Gender Information Value Date Recorded Sex Assigned at Not on file Gender Identity Not on file Sexual Orientation Not on file documented as of this encounter Plan of Treatment Not on file documented as of this encounter Visit Diagnoses Not on filedocumented in this encounter Care Teams Machine Tech Relationship Specialty Start Date End Date [place] [address] PCP - General Family Medicine 04/09/23 04/30/24 documented as of this encounter
--- OUTSIDE RECORDS SUMMARY | 2024-12-26 19:41 | XMS_ITS | Encounter Summary ---
Author Organization [place] [address] Care Team Providers Care Patient Financial Services Coordinator Name Role Phone Sherrell Lemos APRN Primary Care Provider [phone] Encounter Details Date Type Department Care Team (Late st Contact Info) Description 07/25/2016 Telephone Dermatology at [address] [address] Kerry Silva LPN Social History Tobacco Use Types Packs/Day Years Used Date Smoking Tobacco: Never Sex and Gender Information Value Date Recorded Sex Assigned at Not on file Gender Identity Not on file Sexual Orientation Not on file documented as of this encounter Miscellaneous Notes * Telephone Encounter - Kerry Calhoun LPN - 07/25/2016 12:00 PM EDT Nurse called patient to review biopsy results: BCCA, no further treatment necessary. RTC on 10/30/16. Message left. documented in this encounter Plan of Treatment Not on file documented as of this encounter Visit Diagnoses Not on filedocumented in this encounter Care Teams Patient Financial Services Coordinator Relationship Specialty Start Date End Date Sherrell Lemos APRN PCP - General Family Medicine 03/14/16 04/08/23 documented as of this encounter
--- OUTSIDE RECORDS SUMMARY | 2024-12-26 19:41 | XMS_ITS | Encounter Summary ---
Author Organization [facility] Address [facility] [place] [address] Care Team Providers Care Heading Repairer Name Role Phone Dulce Funk APRN Primary Care Provider [phone] Reason for Visit * Reason Comments Advice Only BBR - watched ANCA * Consultation (Routine) - Closed Specialty Diagnoses / Procedures Referred By Contac t Referred To Contact Plastic Surgery Diagnoses Macromastia BBR Delvin Lucio, DNP [address] [place] [address] [facility] Pl[facility] Surg [address] [place] [address] Referral ID Status Reason Start Date Expiration Date V isits Requested Visits Authorized [id number] Closed Consult, Test & Treat PCP Updated and/or Approved 04/09/2023 04/08/2024 6 6 Encounter Details Date Type Department Care Team (Late st Contact Info) Description 04/30/2023 3:30 PM EDT Office [place] [address] Matthew Miles MD [facility] [place] [address] Macromastia Social History Tobacco Use Types Packs/Day Years Used Date Smoking Tobacco: Never Tobacco Cessation:Counseling Given: Not Answered Sex and Gender Information Value Date Recorded Sex Assigned at Not on file Gender Identity Not on file Sexual Orientation Not on file documented as of this encounter Last Filed Vital Signs Vital Sign Reading Time Taken Comments Blood Pressure - - Pulse - - Temperature - - Respiratory Rate - - Oxygen Saturation - - Inhaled Oxygen Concentration - - Weight 91.2 kg (201 lb) 04/30/2023 3:19 PM EDT Height 160 cm (5' 3) 04/30/2023 3:19 PM EDT Body Mass Index 35.61 04/30/2023 3:19 PM EDT documented in this encounter Patient Instructions * Patient Instructions* Belia Cole RN - 04/30/2023 3:30 PM EDT Preoperative Instructions You have been scheduled to have plastic surgery. The instructions below are specific to your procedure. If you are a smoker, we ask that you stop at least 2 months prior to your surgical date and remain nicotine free for at least a month after surgery. Smoking can impair healing and increase your chance of infection. Due to a strong risk for delayed healing, we will preform a CO2 test on the day of your surgery to test for byproducts of smoking.If the test is positive your surgery will be cancelled. If you are 40 years old or older, please remember to have a mammogram with in one year prior to your upcoming breast reduction surgery as we advise not having one for at least six months after surgery. One Month prior to Surgery Schedule a pre-operative physical with your primary care doctor Two Weeks prior to Surgery Do not take any Aspirin or aspirin containing products for the 2 weeks leading up to surgery. You may resume taking 48 hours after surgery. Do not take medications containing Ibuprofen. Do not take any anti-steroidal's such as Advil, Aleve, Celebrex, Daypro, Indocin, Midol, Motrin, Naproxen, Nuprinand Toradol. These medications increase your risk of bleeding. You may resume taking any of these medications 48 hours after surgery. Stop Vitamin E, Garlic supplements, Ginseng, Fish Oil tablets, Ginkgo and Amarilis's Wort and any other herbals. You may resume taking 48 hours after surgery. If you need medication for pain, you may take Tylenol or extra strength Tylenol during this two week period. One Week prior to Surgery Please call if you feel ill, have cold or fever, have a rash or breaks in the skin near your surgical site. Stay hydrated. Avoid alcohol and recreational drugs Three Days before Surgery Do not shave near your surgical site One Day before Surgery Breast Surgery - Wash your chest and underarms for several minutes the night before and the morningof surgery using an antibacterial soap (Dial or Lever 2000) or Hibiclens wash. The Same Day Surgery Team will call you the business day before your surgery to give you instructions specific to your procedure and your surgical time. Generally, you will be asked not to eat any solids after midnight. You are allowed clear liquids (water, liang telly, apple juice, black coffee andplain tea) until 2 hours prior to your surgery. Day of Surgery A hazmat cdl a driver is required at time of discharge. If you are a Same Day procedure and do not have a driveryour surgery will be canceled. DO NOT wear any jewelry, makeup or artificial nails the day of surgery. DO NOT apply any lotions, powders or deodorants on or near the surgical site the day of surgery. Do wear comfortable, loose fitting clothes. Anesthesia will meet with you the morning of surgery. They will perform an assessment and review your history with you. Contact Information: During regular office hours (Sunday- Sunday, non-holiday 8:00 am- 5:00 pm) For an appointment or insurance questions For questions pertaining to your surgical date [phone] For nursing related questions [phone] On weekends, holidays or after office hours: Call and ask the rough and truing machine operator to page the Plastic Surgery Resident inclusion intern. documented in this encounter Progress Notes * Matthew Miles MD - 04/30/2023 3:30 PM EDT Images from the original note were not included. Plastic Surgery Consultation Note Matthew Miles MD. PCP: Dulce Funk APRN Requesting Physician: No primary care provider on file. CC: Symptomatic macromastia HPI: Geetha Figueroa is a 58 y.o. female who presents today for evaluation of symptomatic macromastia. Her PCP is Dulce Funk APRN and has requested the consultation. She is accompanied by her cousin for today???s visit. Patient admits to having back, neck, and shoulder pain, painful grooves in her shoulders from the weight of her breasts, rashes under her breasts, difficulty with vigorous activities, trouble finding bras and clothes that fit. She reports that her breasts sit on top of her stomach which cause her pain and discomfort. She is unable to wear a bra with a wire as it digs into her.She would like to be a large C cup. She reports that her cup size has been stable for at least 6 mon ths. Her most recent mammogram was in 02/2022 and was normal. She denies any family history of breast cancer. 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 She denies use of tobacco or vape products. The patient is otherwise healthy. No heart, lung, breathing, liver, kidney, hepatitis, diabetes, thyroid, seizure issues, bleeding or blood clotting disorder. She has completed a breast specific questionnaire: View : No data to display. 04/23/2023 10:52 AM Breast Q Reduction PreOp Satisfaction with Breast 21 Psychosocial Wellbeing 42 Physical Well-being 42 How your breasts look in clothes? Very dissatisfied How your breast size matches the rest of your body? Very dissatisfied The size of your breasts? Very dissatisfied The shape of your breasts when you are wearing a bra? Very dissatisfied How equal in size your breasts are to each other? Somewhat satisfied How comfortably your bras fit? Very dissatisfied The shape of your breasts when you are not wearing a bra? Very dissatisfied How you look in the mirror clothed? Very dissatisfied How your breasts sit/hang on your chest? Very dissatisfied How normal your breasts look? Somewhat dissatisfied How you look in the mirror unclothed? Very dissatisfied Confident in a social setting? Some of the time Of equal worth to other women? Some of the time Good about yourself? Most of the time Self-assured? Most of the time Confident in your clothes? A little of the time Accepting of your body? A little of the time That your appearance matches who you are inside? A little of the time Confident about your body? None of the time Attractive? Some of the time Headaches? Some of the time Pain in your breast area? All of the time Lack of energy? Some of the time Difficulty doing vigorous physical activities (e.g. running or exercising)? All of the time Feeling physically unbalanced? Some of the time Shoulder pain? All of the time Difficulty sleeping because of discomfort in your breast area? Some of the time Neck pain? All of the time Painful gouges or grooves in your shoulders from your bra straps? All of the time Feeling physically uncomfortable? All of the time Rashes under your breasts? Some of the time Back pain? All of the time Arm pain? All of the time Pain, numbness or tingling in your hands because of your breast size? All of the time Conservative Therapy Treatments: 04/23/2023 10:52 AM [facility] CONSERVATIVE THERAPY TREATMENTS Physical therapy was effective at relieving my symptoms. No Relief How many months did you try this treatment? Less than 3 months Use of custom support bras relieved my symptoms. Never Tired Treatment by a chiropractor relieved my symptoms. Never Tried Weight loss relieved my symptoms. No Relief How many months did you try this treatment? More than 6 months Non-narcotic medications (such as Tylenol, Aspirin, Ibuprofen, Aleve, etc) have relieved my symptoms. No Relief How many months did you try this treatment? More than 6 months Narcotic pain relievers (such as Tylenol #3, Percocet, etc) have relieved my symptoms. Never Tried Other Treatments have relieved my symptoms. No Relief Please specify which treatments have helped. No treatments have helped my breast size or pain it causes my neck ,shoulders , back and numbness in my hands. How many months did you try this treatment(s)? More than 6 months Over the counter or prescription medication has relieved the rashes under my breasts. Some Relief How many months did you try this treatment? Less than 3 months No past medical history on file. No past surgical history on file. ROS: HEENT, GI, /Renal, Psych, Card, Pulm, Endo, Heme, Immun, Neuro: negative Examination: BMI: Ht 160 cm (5' 3) Wt 91.2 kg (201 lb) BMI 35.61 kg/m?? BSA: Body surface area is 2.01 meters squared. General: On my examination today, the patient appears to be in good health. Her emotional outlook is positive and she asked appropriate questions throughout the visit. D+ cup size breasts No nipple retraction or discharge Nipples are sensate No obvious mass in either breast or axilla 1+ axillary rolls Symmastia in midline No active intertrigo +bra strap grooving Breast Measurements Right Left Ptosis Grade III Grade III SN-N (cm) 35 cm 36 cm IMF-Nipple (cm) 16 cm 16 cm Anticipated resection: At least 628+ grams from the Right breast and 628+ grams from the Left breast. BSA [employer] All other / Schnur 2.01 2.00 [id number] Impression: Symptomatic bilateral breast hypertrophy. Bilateral breast reduction is medically indicated for relief of her breast-related symptoms. She watched the ANCA video on breast reduction, and was provided with an ASPS brochure and informed consent on breast reduction. It reviews the surgicalrisks, alternate skin incisions and pedicle versus free nipple graft techniques. It also discusses the option of volume reduction by liposuction alone, which does not alter the nipple-areolar complexposition. It talks about the impact of this surgery on decreasing breast cancer risk. We reviewed the timing of surgery relative to weight fluctuations and I've advised that surgery is best done at a realistic group home stable weight. We talked about the outpatient nature of the surgery, drains, postoperative recovery, and time required off work. She should anticipate at least 1-2 weeks off from surgery. Post-operative restrictions include no lifting, pushing, or pulling more than 5lbs for 4-6 weeks. Walking is fine and encouraged. We discussed that they should expect 70% of their result at 3 month's post op. I discussed with the patient that I cannot guarantee a cup size after surgery. I think Geetha Figueroa would receive significant symptomatic relief from a bilateral breast reduction.We spoke about the expected outcomes as well as potential risks of surgery, including wound healingcomplications and changes to nipple sensation. The following risks were reviewed in the video or in our discussion: Breast Feeding Discussion: Although, not all women experience difficulty with breast feeding after breast reduction, we discussed the potential risk. We also discussed the potential risk in breast enlargement, should she decide to have children in the future. Surgical Risks which are greater with open reduction: bleeding with risk of hematoma (<5%); numbness, which may be temporary or permanent; scarring, including abnormal scarring; infection (5-10%);fat necrosis resulting in a breast mass and possible need for revision. I stressed the likelihood of minor problems with delayed wound healing (~30%) and the rare complication of nippleareolar necrosis. She is also aware that there may be some residual pain after the surgery and that there may possibly be some asymmetry. Saenz, Dundas, or Spair Pattern Incision: More scarring on breast, but lower risk for scar revision.(She was informed that her insurer might not cover secondary revisions for scarring or asymmetry.) Pedicle Technique: volume of reduction may be limited by need to provide an adequate blood supply to the nipple. There is a very small risk of nipple loss. Most women (~60%) will be able to breast-feed. Free Nipple Graft: The grafts will initially have no sensation and once fully healed may not respond to temperature and touch as they do now. She has also been informed that they may not look entirely normal and may have patchy hypopigmentation. She will not be able to breast feed with this technique. After fully discussing the options, she has opted to pursue a: Bilateral Breast Reduction Saenz, Pedicle x Bilateral Breast Reduction Saenz, Spair Bilateral Breast Reduction Saenz, FNG She would like to proceed with surgery and I will inform her PCP of this plan. Surgical consent wassigned. Photos taken today with informed signed consent. Plan: Schedule surgery. Surgical Grid: Duration: 2-2.5 hours Timeframe: Elective Procedure: Bilateral breast reduction CPT: 39276 Surgical Technique: Saenz, Spair Surgical site: Breasts Side: Bilateral Anesthesia: General Follow up: 7-10 days for HCK and possible drain removal with ARNOLDO PAT: H&P DOS [facility] acting as scribe for Dr. Miles. All work documented was performed by Dr. Miles. MATTHEW Dominguez MD, performed the services which were documented by the scribe, and I agree withthe accuracy of the documentation in this encounter. documented in this encounter Plan of Treatment Not on file documented as of this encounter Visit Diagnoses Diagnosis Macromastia Hypertrophy of breast documented in this encounter Care Teams Heading Repairer Relationship Specialty Start Date End Date Dulce Funk [place] [address] PCP - General Family Medicine 04/09/23 04/30/24 documented as of this encounter
== END 2024-12-26 19:39 | disposition home or self-care (01) ==
LOC: NCHCN 19:38
PROVIDERS: PCP Nurse Practitioner Family; Visit Provider Nurse Practitioner Family
DX: E78.5 Hyperlipidemia, unspecified (principal); E55.9 Vitamin D deficiency, unspecified
CPT/HCPCS: 80053; 80061; 82306